=== PATIENT | female | born 1970 | race Caucasian/White ===

== ENCOUNTER 2017-01-26 20:59 | Observation (INO) | payer OTHER ==
[2017-01-26] MEDS ORDERED: SODIUM CHLORIDE 0.9% 500 ML IV STA (21:08)
[2017-01-26 21:49] LABS: Basophils % (A) 1 %; CH 29.8; CHCM 32.8; Eosinophils # (A) 0.1 k/uL (0-0.7); Eosinophils % (A) 2 %; HCT 47.8 % (34.0-46.0); HDW 2.58; HGB 16.1 gm/dL (11.4-16.0); Luc # (Auto) 0.15; Luc % (Auto) 3; Lymphocytes # (A) 2.2 k/uL (1.0-4.8); Lymphocytes % (A) 36 %; MCH 30.8 pg (25.0-35.0); MCHC 33.7 g/dL (31.0-37.0); MCV 91.5 fL (80.0-100.0); Mean Platelet Volume 8.8; Monocytes # (A) 0.4 k/uL (0-1.0); Monocytes % (A) 7 %; Neutrophils # (A) 3.2 k/uL (1.3-7.7); Neutrophils % (A) 53 %; RBC 5.22 m/uL (3.80-5.40); WBC (Perox) 6.06
[2017-01-26 21:53] LABS: ALT 35 U/L (9-52); AST 23 U/L (14-36); Acetaminophen <10.0 ug/mL; Alcohol <10 mg/dL; Alkaline Phosphatase 72 U/L (38-126); Anion Gap 12 mmol/L; Blood Urea Nitrogen 18 mg/dL (7-17); Calcium 9.2 mg/dL (8.4-10.2); Carbon Dioxide 18 mmol/L (22-30); Chloride 109 mmol/L (98-107); Glucose 79 mg/dL (74-99); Non-African American GFR(MDRD) >60 (>60 ml/min/1.73 sqM); Potassium 4.2 mmol/L (3.5-5.1); Salicylate <1.0 mg/dL; Sodium 139 mmol/L (137-145); Total Bilirubin 0.6 mg/dL (0.2-1.3); Total Protein 7.1 g/dL (6.3-8.2)
--- NOTE | 2017-01-26 22:00 | CT ---
EXAMINATION TYPE: CT brain wo con DATE OF EXAM: 01/26/2017 COMPARISON: NONE HISTORY: Seizure today, history of seizures. CT DLP: 1115.[address] of the brain was performed. The ventricles, basal cisterns and sulci overlying the cerebral convexities demonstrate mild enlargem ent. Periventricular decreased attenuation. There is no evidence for intracranial hemorrhage or sulcal effacement. No mass effects are seen.No midline shift. Osseous calvarium is intact. If symptoms persist consider MRI. IMPRESSION: 1. Advanced atrophic changes for the patient's age group. No acute intracranial process is appreciate d.
[2017-01-26] MEDS ORDERED: levETIRAcetam IV 1,000 MG in SALINE 1 100ML.BAG IVPB STA (22:15)
[2017-01-26 22:16] LABS: Appearance,Urine Clear (Clear); Bilirubin,Urine Negative (Negative); Glucose,Urine (UA) Negative (Negative); Ketones,Urine 1+ (Negative); Leukocyte Esterase,Urine Negative (Negative); Nitrite,Urine Negative (Negative); PH, Urine 5.5 (5.0-8.0); Protein,Urine Negative (Negative); Specific Gravity,Urine 1.009 (1.001-1.035); UA Billing (MACRO vs. MICRO) CHEM; Urobilinogen,Urine <2.0 mg/dL (<2.0)
--- NOTE | 2017-01-26 22:28 | ED ---
General Adult HPI - General Chief complaint: Seizure Stated complaint: Seizure Time Seen by Provider: 01/26/17 21:00 Source: patient, EMS, RN notes reviewed Mode of arrival: EMS Limitations: no limitations - History of Present Illness Initial comments: 46-year-old female presents for evaluation status post seizure. Patient is very somnolent and difficult to obtain a detailed history. According to EMS there was an approximately five-minute tonic-clonic seizure. In the home with the patient was residing, there was smoke from an "meal in the oven. This was minimal amount of smoke, however given this finding it is unknown how long the patient was unresponsive. Patient does appear to be postictal on my initial evaluation. Her neurologic examination is nonfocal. She is able to answer simple questions. She denies headache. Denies chest pain or shortness of breath. States she has not been on any seizure medication for some time secondary to "cholesterol problems". He does admit to taking Neurontin and Cymbalta today. She denies alcohol or benzodiazepine ingestion. Patient's only other known medical problem is chronic pain. - Related Data Allergies Allergy/AdvReac Type Severity Reaction Status Date / Time Penicillins Allergy Mild Unknown Verified 01/26/17 21:11 Review of Systems ROS Statement: Those systems with pertinent positive or pertinent negative responses have been documented in the HPI. ROS Other: All systems not noted in ROS Statement are negative. Past Medical History Past Medical History: COPD, Seizure Disorder History of Any Multi-Drug Resistant Organisms: MRSA Past Surgical History: Hysterectomy, Tubal Ligation Past Psychological History: No Psychological Hx Reported Smoking Status: Current every day smoker Past Alcohol Use History: Occasional Past Drug Use History: None Reported General Exam Limitations: no limitations General appearance: in no apparent distress, lethargic Head exam: Present: atraumatic, normocephalic Eye exam: Present: normal appearance, PERRL. Absent: scleral icterus, conjunctival injection ENT exam: Present: mucous membranes dry Neck exam: Absent: tenderness, meningismus Respiratory exam: Present: normal lung sounds bilaterally. Absent: respiratory distress, wheezes Cardiovascular Exam: Present: regular rate, normal rhythm GI/Abdominal exam: Present: soft. Absent: distended, tenderness Extremities exam: Present: normal inspection, normal capillary refill. Absent: pedal edema Neurological exam: Present: altered. Absent: motor sensory deficit Psychiatric exam: Present: flat affect Skin exam: Present: warm, dry, intact. Absent: cyanosis, diaphoretic Course Vital Signs 01/26/17 01/26/17 01/26/17 21:02 21:37 22:42 Temperature 98.2 F Pulse Rate 77 61 59 L Respiratory 18 18 16 Rate Blood Pressure 149/89 138/72 123/68 O2 Sat by Pulse 96 99 100 Oximetry - Reevaluation(s) Reevaluation #1: 01/26/17 22:27 I did attempt to contact the patient's daughter, called 3 different phone numbers, none of which were successful. EKG Findings - EKG Comments: EKG Findings:: EKG shows normal sinus rhythm, ventricular rate is 69, CO interval 140, QRS duration 86, QTC is 458. Medical Decision Making - Medical Decision Making 46-year-old female presenting by EMS with generalized seizure-like activity. This lasted approximately 5 minutes all of the exact time course is unknown. On initial evaluation patient does seem somewhat somnolent, syncope postictal period while emergency department patient is placed on seizure cautions, head CT is obtained which does show advanced age-related changes, no hemorrhage, no acute process. Laboratory studies including CBC, CMP are unremarkable, urinalysis shows no signs of infection, urine drug screen is positive for tricyclic, and benzodiazepines. Patient does not report taking any benzodiazepines. Her persistent postictal state and may be related to benzodiazepine ingestion or overdose. Patient is given a gram of Keppra to prevent recurrent seizure. She will be admitted for seizure with prolonged postictal period vs. benzodiazepine ingestion. Venous blood gas is obtained, negative for carbon dioxide retention. Tylenol and aspirin levels are nondetectable, alcohol is less than 10. EKG shows no arrhythmia. Diagnosis: Recurrent seizure, prolonged postictal period, polysubstance overdose - Lab Data Result diagrams: 01/26/17 21:27 01/26/17 21:27 Lab Results 01/26/17 01/26/17 01/26/17 Range/Units 21:27 21:27 22:05 WBC 6.0 (3.8-10.6) k/uL RBC 5.22 (3.80-5.40) m/uL Hgb 16.1 H (11.4-16.0) gm/dL Hct 47.8 H (34.0-46.0) % MCV 91.5 (80.0-100.0) fL MCH 30.8 (25.0-35.0) pg MCHC 33.7 (31.0-37.0) g/dL RDW 14.0 (11.5-15.5) % Plt Count 203 (150-450) k/uL Neutrophils % 53 % Lymphocytes % 36 % Monocytes % 7 % Eosinophils % 2 % Basophils % 1 % Neutrophils # 3.2 (1.3-7.7) k/uL Lymphocytes # 2.2 (1.0-4.8) k/uL Monocytes # 0.4 (0-1.0) k/uL Eosinophils # 0.1 (0-0.7) k/uL Basophils # 0.0 (0-0.2) k/uL VBG pH (7.31-7.41) VBG pCO2 (37-51) mmHg VBG HCO3 (24-28) mmol/L Carbon Monoxide, Quant (<10.0) % Sodium 139 (137-145) mmol/L Potassium 4.2 (3.5-5.1) mmol/L Chloride 109 H (98-107) mmol/L Carbon Dioxide 18 L (22-30) mmol/L Anion Gap 12 mmol/L BUN 18 H (7-17) mg/dL Creatinine 0.90 (0.52-1.04) mg/dL Est GFR (MDRD) Af Amer >60 (>60 ml/min/1.73 sqM) Est GFR (MDRD) Non-Af >60 (>60 ml/min/1.73 sqM) Glucose 79 (74-99) mg/dL Calcium 9.2 (8.4-10.2) mg/dL Total Bilirubin 0.6 (0.2-1.3) mg/dL AST 23 (14-36) U/L ALT 35 (9-52) U/L Alkaline Phosphatase 72 (38-126) U/L Total Protein 7.1 (6.3-8.2) g/dL Albumin 4.4 (3.5-5.0) g/dL Urine Color Yellow Urine Appearance Clear (Clear) Urine pH 5.5 (5.0-8.0) Ur Specific Sheridan 1.009 (1.001-1.035) Urine Protein Negative (Negative) Urine Glucose (UA) Negative (Negative) Urine Ketones 1+ H (Negative) Urine Blood Negative (Negative) Urine Nitrite Negative (Negative) Urine Bilirubin Negative (Negative) Urine Urobilinogen <2.0 (<2.0) mg/dL Ur Leukocyte Esterase Negative (Negative) Salicylates <1.0 mg/dL Urine Opiates Screen Not Detected (NotDetected) Ur Oxycodone Screen Not Detected (NotDetected) Urine Methadone Screen Not Detected (NotDetected) Ur Propoxyphene Screen Not Detected (NotDetected) Acetaminophen <10.0 ug/mL Ur Barbiturates Screen Not Detected (NotDetected) Phenytoin <3.0 ug/mL U Tricyclic Antidepress Detected H (NotDetected) Ur Phencyclidine Scrn Not Detected (NotDetected) Ur Amphetamines Screen Not Detected (NotDetected) U Methamphetamines Scrn Not Detected (NotDetected) U Benzodiazepines Scrn Detected H (NotDetected) Urine Cocaine Screen Not Detected (NotDetected) U Marijuana (THC) Screen Detected H (NotDetected) Serum Alcohol <10 mg/dL 01/26/17 Range/Units 22:55 WBC (3.8-10.6) k/uL RBC (3.80-5.40) m/uL Hgb (11.4-16.0) gm/dL Hct (34.0-46.0) % MCV (80.0-100.0) fL MCH (25.0-35.0) pg MCHC (31.0-37.0) g/dL RDW (11.5-15.5) % Plt Count (150-450) k/uL Neutrophils % % Lymphocytes % % Monocytes % % Eosinophils % % Basophils % % Neutrophils # (1.3-7.7) k/uL Lymphocytes # (1.0-4.8) k/uL Monocytes # (0-1.0) k/uL Eosinophils # (0-0.7) k/uL Basophils # (0-0.2) k/uL VBG pH 7.41 (7.31-7.41) VBG pCO2 32 L (37-51) mmHg VBG HCO3 20 L (24-28) mmol/L Carbon Monoxide, Quant 5.0 (<10.0) % Sodium (137-145) mmol/L Potassium (3.5-5.1) mmol/L Chloride (98-107) mmol/L Carbon Dioxide (22-30) mmol/L Anion Gap mmol/L BUN (7-17) mg/dL Creatinine (0.52-1.04) mg/dL Est GFR (MDRD) Af Amer (>60 ml/min/1.73 sqM) Est GFR (MDRD) Non-Af (>60 ml/min/1.73 sqM) Glucose (74-99) mg/dL Calcium (8.4-10.2) mg/dL Total Bilirubin (0.2-1.3) mg/dL AST (14-36) U/L ALT (9-52) U/L Alkaline Phosphatase (38-126) U/L Total Protein (6.3-8.2) g/dL Albumin (3.5-5.0) g/dL Urine Color Urine Appearance (Clear) Urine pH (5.0-8.0) Ur Specific Sheridan (1.001-1.035) Urine Protein (Negative) Urine Glucose (UA) (Negative) Urine Ketones (Negative) Urine Blood (Negative) Urine Nitrite (Negative) Urine Bilirubin (Negative) Urine Urobilinogen (<2.0) mg/dL Ur Leukocyte Esterase (Negative) Salicylates mg/dL Urine Opiates Screen (NotDetected) Ur Oxycodone Screen (NotDetected) Urine Methadone Screen (NotDetected) Ur Propoxyphene Screen (NotDetected) Acetaminophen ug/mL Ur Barbiturates Screen (NotDetected) Phenytoin ug/mL U Tricyclic Antidepress (NotDetected) Ur Phencyclidine Scrn (NotDetected) Ur Amphetamines Screen (NotDetected) U Methamphetamines Scrn (NotDetected) U Benzodiazepines Scrn (NotDetected) Urine Cocaine Screen (NotDetected) U Marijuana (THC) Screen (NotDetected) Serum Alcohol mg/dL Critical Care Time Critical Care Time: Yes Total Critical Care Time: 35 Disposition Clinical Impression: Generalized seizure Disposition: ADMITTED IP TO THIS [facility] Condition: Stable Referrals: Rickey Desai MD [Primary Care Provider] - 1-2 days Decision to Admit Reason: Admit from EC Decision Date: 01/26/17 Decision Time: 23:26
[2017-01-26] MEDS: SODIUM CHLORIDE 0.9% 1,000 ML IV SCH (22:42)
[2017-01-26 23:03] LABS: VBG PH 7.41 (7.31-7.41)
[2017-01-26] MEDS ORDERED: NALOXONE 0.4 MG/ML 1 ML VIAL IV PRN (23:19)
[2017-01-26] MEDS ORDERED: ACETAMINOPHEN TAB 325 MG TAB PO PRN (23:19)
[2017-01-26] MEDS ORDERED: ONDANSETRON 4 MG/2 ML VIAL IVP PRN (23:19)
[2017-01-27 08:59] LABS: Basophils % (A) 1 %; CH 29.8; CHCM 33.6; Eosinophils # (A) 0.1 k/uL (0-0.7); Eosinophils % (A) 2 %; HCT 44.8 % (34.0-46.0); HDW 2.63; HGB 15.2 gm/dL (11.4-16.0); Luc # (Auto) 0.11; Luc % (Auto) 2; Lymphocytes # (A) 1.8 k/uL (1.0-4.8); Lymphocytes % (A) 34 %; MCH 30.3 pg (25.0-35.0); MCHC 33.9 g/dL (31.0-37.0); MCV 89.3 fL (80.0-100.0); Mean Platelet Volume 8.8; Monocytes # (A) 0.2 k/uL (0-1.0); Monocytes % (A) 3 %; Neutrophils # (A) 3.2 k/uL (1.3-7.7); Neutrophils % (A) 59 %; RBC 5.02 m/uL (3.80-5.40); RDW 13.9 % (11.5-15.5); WBC 5.4 k/uL (3.8-10.6)
[2017-01-27 09:18] LABS: ALT 32 U/L (9-52); AST 18 U/L (14-36); Alkaline Phosphatase 61 U/L (38-126); Anion Gap 10 mmol/L; Blood Urea Nitrogen 14 mg/dL (7-17); Calcium 8.9 mg/dL (8.4-10.2); Carbon Dioxide 20 mmol/L (22-30); Chloride 109 mmol/L (98-107); Glucose 151 mg/dL (74-99); Magnesium 1.6 mg/dL (1.6-2.3); Non-African American GFR(MDRD) >60 (>60 ml/min/1.73 sqM); Potassium 3.9 mmol/L (3.5-5.1); Sodium 139 mmol/L (137-145); Total Bilirubin 0.5 mg/dL (0.2-1.3); Total Protein 6.3 g/dL (6.3-8.2)
[2017-01-27] MEDS ORDERED: HYDROcodone/APAP 5-325MG 1 EACH TAB PO PRN (14:18)
[2017-01-27] MEDS ORDERED: ALPRAZolam 0.25 MG TAB PO PRN (14:18)
[2017-01-27] MEDS ORDERED: TEMAZEPAM 15 MG CAP PO PRN (14:18)
[2017-01-27] MEDS ORDERED: levETIRAcetam IV 750 MG in SODIUM CHLORIDE 0.9% 100 ML IVPB SCH (15:00)
[2017-01-27] MEDS: NICOTINE 14MG/24HR PATCH TRANSDERM SCH (15:45)
[2017-01-27] MEDS: DULoxetine HCL 30 MG CAPSULE.DR PO SCH (15:46)
[2017-01-27] MEDS: PANTOPRAZOLE 40 MG TABLET PO SCH (15:46)
[2017-01-27] MEDS: LEVOTHYROXINE 75 MCG TAB PO SCH (15:47)
[2017-01-27] MEDS: HEPARIN SODIUM,PORCINE 5,000 UNIT/ML 1 ML VIAL SQ SCH ×2 (15:47→21:44)
[2017-01-27] MEDS: traZODone HCL 50 MG TAB PO SCH ×2 (15:57→22:09)
[2017-01-27] MEDS: PREGABALIN 100 MG CAP PO PRN ×2 (16:12→21:44)
[2017-01-27] MEDS: BUTALB/APAP/CAFF 50-325-40MG TAB PO PRN (17:42)
[2017-01-27] MEDS: SODIUM CHLORIDE 0.9% 1,000 ML IV SCH (19:56)
--- NOTE | 2017-01-27 20:14 | HP ---
HISTORY AND PHYSICAL DATE OF SERVICE: 01/27/2017 This is a progress note. CHIEF COMPLAINT: Seizure disorder. HISTORY: This 46-year-old woman with a past medical history of seizure disorder for several years, history of COPD, history of smoker, history of MRSA, being followed by Dr. Fox in the outpatient setting apparently was cooking food for her ex-boyfriend. The patient apparently had 5 minute tonic-clonic seizures. The patient was subsequent unresponsive and the exact duration of the episodes not known at this time. The patient taken to [facility] and admitted to the hospital for further evaluation and treatment. There is no history of fever, rigors or chills, chest pain, palpation, hematochezia or melena at this time. The patient being followed by in [place]. PAST MEDICAL HISTORY: Past medical history of COPD, seizure disorder, history of nicotine dependence, history of MRSA. MEDS: Medications prior to admission include: 1. Trazodone 50 mg p.o. t.i.d. 2. Zocor 40 mg q.h.s. 3. Lyrica 200 mg b.i.d. 4. Synthroid 150 mcg p.o. daily. 5. Cymbalta 30 mg p.o. daily. 6. Fioricet 1 capsule p.o. q.8h p.r.n. 7. Elavil 25 mg p.o. daily. ALLERGIES: PENICILLIN. FAMILY HISTORY: Unknown. SOCIAL HISTORY: History of smoking, history of alcohol. THC was positive in the drug screen. REVIEW OF SYMPTOMS: Review of systems: ENT no diminished vision. No diminished hearing. Cardiovascular: No angina or palpitations. Respiratory: No cough. No hemoptysis. GI: No nausea or vomiting. : No dysuria or retention. Central nervous system: No numbness, weakness. Allergy/Immunology: No asthma or hayfever. Musculoskeletal: As mentioned earlier. Hematology/Oncology: No history of anemia. Endocrine: No history of diabetes, hypothyroidism. Constitutional: As mentioned earlier. Dermatology: Negative. Rheumatology: Negative. Psychiatric: As mentioned earlier. PHYSICAL EXAMINATION: Alert and oriented times three. Pulse 71, blood pressure 140/77, respiration 18 , temperature 97.8, pulse ox 97% on 2 L nasal cannula. HEENT: Conjunctivae normal. Oral mucosa moist. Neck is no jugular venous distention. No carotid bruit. No lymph node enlargement. No thyroid enlargement. Cardiovascular S1, S2 muffled. No S3, no S4. Respiratory: Breath sounds diminished in sounds in the bases. A few scattered rhonchi. No crackles. Abdomen is soft, nontender. No mass palpable. Legs: No edema. No swelling. Central nervous system: Higher functions as mentioned. Moves all four limbs. No focal motor or sensory deficits. lymphatics: No lymph nodes palpable in the neck, axillae or groin. Skin: No ulcer, rash or bleeding. LABS: CBC within normal limits. Sodium 139, potassium 3.9. Random glucose is 151. Drug screen is positive for THC. ASSESSMENT: 1. Generalized tonic clonic seizure disorder and breakthrough seizures. 2. History of nicotine dependence. 3. THC positive. 4. History of chronic obstructive pulmonary disease. 5. History of Methicillin-resistant Staphylococcus aureus. 6. History of hysterectomy. 7. FULL CODE. 8. FULL CODE. 9. RECOMMENDATIONS AND DISCUSSION: In this 46-year-old woman who presents with multiple complex medical issues. We will monitor the patient closely. Continue the current medications. Continue symptomatic treatment. Otherwise, the patient was started on Keppra. Otherwise we will initiate withdrawal. Symptomatic treatment. Xanax. Repeat labs for tomorrow. I would recommend close followup with the primary physician. Further recommendations to follow. See orders for further details. The salicylate, acetaminophen, phenytoin and serum alcohol levels were normal. Resume the home medications as well. Discussed with the patient, understands and agrees. MMODL / IJN: [id number] / MADHURI
[2017-01-27] MEDS ORDERED: ATORVASTATIN 20 MG TAB PO SCH (21:00)
[2017-01-27] MEDS ORDERED: AMITRIPTYLINE HCL 25 MG TAB PO SCH (21:00)
--- NOTE | 2017-01-27 23:12 | MR ---
EXAMINATION TYPE: MR brain wo/w con DATE OF EXAM: 01/27/2017 COMPARISON: Prior MRI brain July 20, 2010. Recent CT brain from yesterday. HISTORY: Seizures, history of multiple sclerosis. TECHNIQUE: Multiplanar, multisequence images of the brain and brainstem is performed without and with IV contras t, utilizing 7.5 mL intravenous Gadavist gadolinium contrast is administered intravenously. Demyelin ating disease protocol with additional Sagittal Flair sequence performed. FINDINGS: T2 Lesions Present : Yes Approximate Number of Lesions: Difficult to accurately measure due to confluent appearance centered p eriventricular level bilaterally. Locations Identified : Predominantly deep and periventricular confluent lesions Size of Reference Lesion(s): 1. 1.6 cm x 0.7 cm x 1.5 cm on axial image 24 and sagittal image 24 posterior right frontal perivent ricular elongated confluent lesion. Enhancing Lesion(s) Present: No Change from Prior: Increase in number from 2010. Diffusion weighted images demonstrate no evidence of a recent infarct or other diffusion abnormality. There is no worrisome extra-axial fluid collection. There is ventricular and sulcal prominence cons istent with and mild to moderate diffuse cerebral atrophy somewhat pronounced for patient's age redem onstrated. Midline structures demonstrate normal morphology. The craniocervical junction appears within normal limits. Post contrast images demonstrate no convincing evidence of abnormal enhancing lesions thoug h exam is suboptimal due to fast protocol related to patient motion.. The dural venous sinuses appear patent. The visualized sinuses are clear and the globes are intact. IMPRESSION: Mild to moderate diffuse cerebral atrophy not significantly changed from 2010 but pronoun bisi for patient's chronologic age. Moderate to severe deep and periventricular white matter changes w ith progression from 2011 study, nonspecific finding most likely on basis of patient's known multiple sclerosis.
[2017-01-28] MEDS: BUTALB/APAP/CAFF 50-325-40MG TAB PO PRN ×2 (02:32→13:10)
[2017-01-28] MEDS: SODIUM CHLORIDE 0.9% 1,000 ML IV SCH (02:46)
[2017-01-28] MEDS: LEVOTHYROXINE 75 MCG TAB PO SCH (06:10)
[2017-01-28] MEDS: PANTOPRAZOLE 40 MG TABLET PO SCH (08:08)
[2017-01-28] MEDS: DULoxetine HCL 30 MG CAPSULE.DR PO SCH (08:08)
[2017-01-28] MEDS: HEPARIN SODIUM,PORCINE 5,000 UNIT/ML 1 ML VIAL SQ SCH (08:09)
[2017-01-28] MEDS: NICOTINE 14MG/24HR PATCH TRANSDERM SCH (08:11)
[2017-01-28] MEDS: traZODone HCL 50 MG TAB PO SCH ×2 (08:11→17:24)
[2017-01-28] MEDS: PREGABALIN 100 MG CAP PO PRN (08:13)
[2017-01-28 08:17] LABS: Basophils % (A) 1 %; CH 31.2; CHCM 34.3; Eosinophils # (A) 0.1 k/uL (0-0.7); Eosinophils % (A) 3 %; HCT 48.8 % (34.0-46.0); HDW 2.66; Luc # (Auto) 0.12; Luc % (Auto) 2; Lymphocytes # (A) 2.4 k/uL (1.0-4.8); Lymphocytes % (A) 49 %; MCHC 32.8 g/dL (31.0-37.0); MCV 91.3 fL (80.0-100.0); Mean Platelet Volume 9.8; Monocytes # (A) 0.3 k/uL (0-1.0); Monocytes % (A) 5 %; Neutrophils % (A) 40 %; RBC 5.35 m/uL (3.80-5.40); RDW 14.8 % (11.5-15.5); WBC 4.9 k/uL (3.8-10.6); WBC (Perox) 5.05
[2017-01-28 08:31] LABS: Anion Gap 9 mmol/L; Blood Urea Nitrogen 15 mg/dL (7-17); Calcium 9.1 mg/dL (8.4-10.2); Carbon Dioxide 21 mmol/L (22-30); Chloride 110 mmol/L (98-107); Glucose 81 mg/dL (74-99); Non-African American GFR(MDRD) >60 (>60 ml/min/1.73 sqM); Potassium 4.3 mmol/L (3.5-5.1); Sodium 140 mmol/L (137-145)
--- NOTE | 2017-01-28 08:39 | CONS ---
CONSULTATION DATE OF CONSULTATION: 01/27/2017 CHIEF COMPLAINT: Seizure. HISTORY OF PRESENT ILLNESS: Mrs. Holly is a 46-year-old, female, who was being evaluated by the neurology service per the request of Dr. Bateman for seizures. The patient was brought into [facility] Emergency Room after she was found to be unresponsive at home. In the emergency room, she was quite drowsy. The patient does not recall what happened. She reports a history of seizures for several years and had been on seizure medications in the past including Dilantin and Keppra. She has not been following up with any neurologist and has not been taking any seizure medications. Her CBC and comprehensive metabolic profile were normal except for mild hyperglycemia at 151. Her urinalysis was normal. Her urine drug screen was positive for tricyclic antidepressants, benzodiazepine, and marijuana. In reviewing her home medications, she is not prescribed any benzodiazepine. The patient admits to me that she has been having increased stress at home and did take Klonopin from a friend's house. According to the chart, EMS did report witnessing a generalized tonic clonic seizure lasting approximately 5 minutes. The patient is currently on seizure precautions and she has been started on Keppra. She also reports a history of multiple sclerosis, which was diagnosed several years ago. She is not on any medications for this. PAST MEDICAL HISTORY: Chronic obstructive pulmonary disease, fibromyalgia, seizure disorder, multiple sclerosis. She also has history of depression. PAST SURGICAL HISTORY: Hysterectomy and tubal ligation. SOCIAL HISTORY: She is a current every day smoker. She occasionally drinks alcohol. She denies any IV drug use. FAMILY HISTORY: Noncontributory. HOME MEDICATIONS: Reviewed in the chart. ALLERGIES: PENICILLIN. REVIEW OF SYSTEMS: CONSTITUTIONAL: Negative. EYES: Negative. ENT: Negative. CARDIOVASCULAR: Negative. RESPIRATORY: Positive for occasional shortness of breath. NEUROLOGICAL: As mentioned above. She denies any lateralizing numbness or weakness. GASTROINTESTINAL: Negative. GENITOURINARY: Negative. MUSCULOSKELETAL: Positive for occasional joint pains. ENDOCRINE: Negative. DERMATOLOGICAL: Negative. PSYCHIATRIC: Positive for history of depression. PHYSICAL EXAM: Vital signs show a temperature of 98.4, pulse 73, respirations 16, blood pressure 128/80. GENERAL APPEARANCE: The patient is a well-developed female who appears to be in no acute distress. HEENT: Normocephalic, atraumatic, no facial asymmetry is seen. Extraocular muscles are intact. NECK: Supple with no masses felt. CARDIOVASCULAR: Regular rate and rhythm. ABDOMEN: Nontender nondistended. Extremities showed no edema or clubbing. NEUROLOGICAL EXAM: The patient is alert, aware and oriented x3. Speech and language are normal. Strength is full in all 4 extremities. Sensory exam was normal to light touch in all 4 extremities. No tremors or seizure-like activity is seen. No facial asymmetry is seen on cranial nerve testing. IMPRESSION: 1. Seizure disorder, generalized tonic-clonic type. 2. Altered mental status, resolved. 3. History of multiple sclerosis. RECOMMENDATION: The patient did have a witnessed generalized tonic-clonic seizure by EMS. As mentioned above, she does report a long-standing history of seizures, but she is not on any seizure medications due to loss of follow up with her previous neurologist. I will keep her on Keppra 750 mg b.i.d. An EEG has been ordered. I will order an MRI of the brain with and without contrast. Continue seizure precautions. Continue neuro checks. As for her history of multiple sclerosis, I had a lengthy discussion with her regarding treatment options. This will be addressed further in outpatient setting. Thank you for allowing me to participate in the care of your patient. If you have any questions, please feel free to contact me. JOHN / FRANKO: [id number] /
[2017-01-28 16:02] VITALS: BP 94/54; PULSE 59; RESP 16; TEMP 98.2
--- NOTE | 2017-01-28 19:59 | P.DS ---
Providers Date of admission: 01/26/17 23:19 Attending physician: Letitia Bateman Consults: 01/26/17 23:20 Consult Physician Urgent Consulting Provider: Sandra Dumont Consult Reason/Comments: Seizure with prolonged postictal Do you want consulting provider notified?: Yes, Notify in am Primary care physician: [facility] Course: This 46-year-old woman with a past medical history multiple medical problems was admitted with a generalized tonic-clonic seizures and breakthrough seizures. Patient was monitored closely. Keppra was initiated. Neurology saw the patient. MRI did not show any acute abnormality in the brain. Neurology recommended follow recommended outpatient follow-up. The patient will be discharged in a stable condition with guarded prognosis. No driving for 6 months per [place] regulations. On exam vitals stable. Cardio S1 and S2 normal. Respirator system clear to auscultation. Abdomen soft nontender. No system no focal deficit. Final diagnosis 1. Generalized tonic-clonic seizure disorder with breakthrough seizures. 2. History and nicotine dependence. 3. THC positive. 4. History of COPD. 5. History of MRSA. 6. History hysterectomy. 7. Full code Patient Condition at Discharge: Stable Plan - Discharge Summary New Discharge Prescriptions: New levETIRAcetam [Keppra] 750 mg PO Q12HR #60 tab Nicotine 14Mg/24Hr Patch [Habitrol] 1 patch TRANSDERM DAILY #30 patch Pantoprazole [Protonix] 40 mg PO AC-BRKFST #30 tab Continue Simvastatin [Zocor] 40 mg PO HS Pregabalin [Lyrica] 200 mg PO BID PRN PRN Reason: FIBROMYALGIA Levothyroxine Sodium [Synthroid] 150 mcg PO DAILY DULoxetine HCL [Cymbalta] 30 mg PO DAILY Fioricet 50-300-40 1 cap PO Q8H PRN PRN Reason: Headache Amitriptyline HCl [Elavil] 25 mg PO BID traZODone HCL 50 mg PO TID Discharge Medication List Amitriptyline HCl [Elavil] 25 mg PO BID 01/27/17 [History] DULoxetine HCL [Cymbalta] 30 mg PO DAILY 01/27/17 [History] Fioricet 50-300-40 1 cap PO Q8H PRN 01/27/17 [History] Levothyroxine Sodium [Synthroid] 150 mcg PO DAILY 01/27/17 [History] Pregabalin [Lyrica] 200 mg PO BID PRN 01/27/17 [History] Simvastatin [Zocor] 40 mg PO HS 01/27/17 [History] traZODone HCL 50 mg PO TID 01/27/17 [History] Nicotine 14Mg/24Hr Patch [Habitrol] 1 patch TRANSDERM DAILY #30 patch 01/28/17 [ Rx] Pantoprazole [Protonix] 40 mg PO AC-BRKFST #30 tab 01/28/17 [Rx] levETIRAcetam [Keppra] 750 mg PO Q12HR #60 tab 01/28/17 [Rx] Follow up Appointment(s)/Referral(s): Sandra Dumont MD [STAFF PHYSICIAN] - 2 Weeks (Office will call patient to set up appointment.) Rickey Desai MD [Primary Care Provider] - 02/02/17 1:00 pm Ambulatory/Diagnostic Orders: Complete Blood Count w/diff [LAB.AMB] Time Frame: 3 Days, Location: Determined By Patient Patient Instructions/Handouts: Nicotine (Absorbed through the skin), Pantoprazole (By mouth), Levetiracetam (By mouth) Activity/Diet/Wound Care/Special Instructions: Pending final DC recommendations and clearance from neurology. Diet: Cardiac Activity: Limited until follow up Discharge Disposition: HOME SELF-CARE
--- NOTE | 2017-01-31 20:37 | EEG ---
ELECTROENCEPHALOGRAM REPORT DATE OF SERVICE: 01/28/2017 REASON FOR TESTING: Seizure. CURRENT ANTI-EPILEPTIC MEDICATIONS: Keppra. DESCRIPTION OF THE PROCEDURE: This EEG was performed using a 21-channel digital electroencephalograph, following international 10-20 system. DESCRIPTION OF THE RECORDING: From the beginning of the tracing, and with the patient's eyes closed, the background rhythm was mostly consisting of 8 to 9 Hertz alpha frequency in the posterior occipital leads. No obvious asymmetry is seen. Photic stimulation was performed with a minimal driving response seen. No pathological waves were elicited. Hyperventilation was performed with a minimal buildup of amplitude seen. Again, no pathological waves were elicited. Frequent movement and muscle artifacts are seen. The patient remains awake throughout the tracing. No obvious epileptiform discharges were seen. Her EKG lead showed a regular rate and rhythm. INTERPRETATION: This awake EEG can be considered within normal limits. There was no asymmetry seen. No epileptiform discharges were noticed. The absence of epileptiform discharges does not rule out the diagnosis of epilepsy; therefore clinical correlation is recommended. MMKENJI / FRANKO: [id number] /
== END 2017-01-28 18:45 | disposition home or self-care (01) ==
LOC: EC 20:59 → 5MS5E 23:19
PROVIDERS: ADMIT Hospitalist; ATTEND Hospitalist
DX: G40.409 Other generalized epilepsy and epileptic syndromes, not intractable, without status epilepticus (principal); G89.29 Other chronic pain; J44.9 Chronic obstructive pulmonary disease, unspecified; Z86.14 Personal history of Methicillin resistant Staphylococcus aureus infection; F17.200 Nicotine dependence, unspecified, uncomplicated; R73.9 Hyperglycemia, unspecified; G35 Multiple sclerosis; M79.7 Fibromyalgia; F32.9 Major depressive disorder, single episode, unspecified; Z88.0 Allergy status to penicillin; Z79.899 Other long term (current) drug therapy
CPT/HCPCS: 96365; 96372 ×2; 96375; 99291; 36415; 94760; 95816; 93005; 80053 ×2; 80048; 82375; 80185; 82803; 83735; 85025 ×3; 81003; 80306; 83520 ×2; 80320; 70450; 70553; G0378 ×3; S4990 ×2; J1644 ×2; J2405; J1953 ×2; A9581

== ENCOUNTER 2017-12-26 22:01 | Inpatient (IN) | payer OTHER ==
[2017-12-26] MEDS: MIDAZOLAM 1 MG/ML 5 ML VIAL IV STA ×2 (22:15→22:27)
[2017-12-26] MEDS ORDERED: SUCCINYLCHOLINE CHLORIDE VIAL 200 MG/10 ML VIAL IV STA (22:39)
[2017-12-26] MEDS: EMPTY BAG 1 BAG with PROPOFOL 1,000 MG IV SCH (22:50)
[2017-12-26] MEDS ORDERED: EMPTY BAG 1 BAG with PROPOFOL 1,000 MG IV SCH (23:00)
[2017-12-26] MEDS ORDERED: IPRATROPIUM-ALBUTEROL 3 ML NEB INHALATION PRN (23:04)
[2017-12-26] MEDS ORDERED: SODIUM CHLORIDE 0.9% 1,000 ML IV STA (23:04)
--- NOTE | 2017-12-26 23:09 | ED ---
General Adult HPI - General Chief complaint: Shortness of Breath Stated complaint: SERGE Time Seen by Provider: 12/26/17 22:05 Source: patient, EMS, RN notes reviewed Mode of arrival: EMS Limitations: physical limitation - History of Present Illness Initial comments: Patient is a pleasant 47-year-old female presenting is a transfer from [facility] for difficulty in breathing. Patient was originally unresponsive and dyspnea by fire and did improve with oxygen. Patient was seen at [facility]. Patient was put on BiPAP and did improve. Patient was determined to be septic and given cefepime and vancomycin as well as the liters of fluid. Blood pressure did increase to 105/80 prior to transfer. Patient did have a elevated lactic acid at 4.5. Patient arrives on CPAP by EMS. Patient remains very dyspneic and in respiratory distress. Patient does have limited answers 1-2 words. Patient states she has been short of breath for the past couple days that has been progressing. Patient is updated regarding her severe respiratory status and advised to be intubated. Patient is receptive to this. Patient was intubated shortly after arrival. - Related Data Home Medications Medication Instructions Recorded Confirmed Amitriptyline HCl [Elavil] 25 mg PO BID 01/27/17 01/27/17 DULoxetine HCL [Cymbalta] 30 mg PO DAILY 01/27/17 01/27/17 Fioricet 50-300-40 1 cap PO Q8H PRN 01/27/17 01/27/17 Levothyroxine Sodium [Synthroid] 150 mcg PO DAILY 01/27/17 01/27/17 Pregabalin [Lyrica] 200 mg PO BID PRN 01/27/17 01/27/17 Simvastatin [Zocor] 40 mg PO HS 01/27/17 01/27/17 traZODone HCL 50 mg PO TID 01/27/17 01/27/17 Previous Rx's Medication Instructions Recorded Nicotine 14Mg/24Hr Patch [Habitrol] 1 patch TRANSDERM DAILY #30 patch 01/28/17 Pantoprazole [Protonix] 40 mg PO AC-BRKFST #30 tab 01/28/17 levETIRAcetam [Keppra] 750 mg PO Q12HR #60 tab 01/28/17 Allergies Allergy/AdvReac Type Severity Reaction Status Date / Time Penicillins Allergy Mild Unknown Verified 12/26/17 22:10 Review of Systems ROS Statement: Those systems with pertinent positive or pertinent negative responses have been documented in the HPI. ROS Other: All systems not noted in ROS Statement are negative. Constitutional: Denies: fever Eyes: Denies: eye pain ENT: Denies: ear pain Respiratory: Reports: cough, dyspnea Cardiovascular: Denies: chest pain Endocrine: Reports: fatigue Gastrointestinal: Denies: abdominal pain Genitourinary: Denies: dysuria Musculoskeletal: Denies: back pain Skin: Denies: rash Neurological: Denies: weakness Past Medical History Past Medical History: COPD, Seizure Disorder Additional Past Medical History / Comment(s): current smoker History of Any Multi-Drug Resistant Organisms: MRSA Date of last positivie culture/infection: unknown MDRO Source:: unknown Past Surgical History: Hysterectomy, Tubal Ligation Additional Past Surgical History / Comment(s): Thyroidectomy Past Anesthesia/Blood Transfusion Reactions: No Reported Reaction Past Psychological History: No Psychological Hx Reported Smoking Status: Current every day smoker Past Alcohol Use History: Occasional Past Drug Use History: None Reported - Past Family History Daughter(s) Family Medical History: No Reported History Mother History Unknown: Yes Additional Family Medical History / Comment(s): patient does not know mother's medical history General Exam Limitations: physical limitation General appearance: alert, in distress Head exam: Present: atraumatic Eye exam: Present: normal appearance, PERRL ENT exam: Present: normal oropharynx Respiratory exam: Present: respiratory distress, wheezes, rales, accessory muscle use Cardiovascular Exam: Present: tachycardia GI/Abdominal exam: Present: soft. Absent: tenderness Extremities exam: Present: normal inspection. Absent: pedal edema, calf tenderness Neurological exam: Present: alert Psychiatric exam: Present: normal affect, normal mood Skin exam: Present: normal color Course Vital Signs 12/26/17 12/26/17 12/26/17 22:08 22:10 23:03 Temperature 99.2 F Pulse Rate 117 H 99 100 Respiratory 40 H 40 H 21 Rate Blood Pressure 107/64 92/57 O2 Sat by Pulse 65 L 93 L Oximetry 12/26/17 12/26/17 12/26/17 23:28 23:32 23:38 Temperature 102.5 F H Pulse Rate 99 99 Respiratory 16 16 Rate Blood Pressure 115/54 94/55 O2 Sat by Pulse 92 L 96 Oximetry 12/27/17 00:06 Temperature Pulse Rate 98 Respiratory 20 Rate Blood Pressure 100/53 O2 Sat by Pulse 98 Oximetry - Reevaluation(s) Reevaluation #1: 12/26/17 23:[address] Britton, who will admit for hospital call. 12/27/17 00:18 Patient was again reevaluated. Computed tomography scan and Tylenol ordered. Case was also discussed in detail with Dr. Silva who will consult. He recommends continuing with cefepime and vancomycin. 12/27/17 00:20 Patient will be covered with heparin for elevated troponin pending cardiology evaluation. Procedures - Central Line Placement Right SC Consent Obtained: emergent situation Time Out Performed: Yes Patient Placed on Monitor/Pulse Ox: Yes MD Prep: mask, gown, gloves Central Line Prep: Chlorhexidine scrub Local Anesthesia Used: Lidocaine 1% Amount of Anesthesia Used (mls): 2 Central Line Lumen Inserted: triple Central Line Position: good blood return, all ports aspirated, flushed, capped, sutured in place with 3-0 nylon Dressing Applied: Tegaderm Post Procedure X-Ray: tip of catheter in good position Patient Tolerated Procedure: well, no complications Complications: none - Intubation Time Out Performed: Yes Sedative: Versed Paralytic: Succinylcholine Laryngoscope: Del Angel Size: 3 ET Tube Size: 7.5 Tube Secured Depth (cm): 21 Tube Placement Confirmation: visualized tube passing through cords, equal breath sounds bilaterally, no breath sounds over epigastrium, confirmation by capnometry Patient Tolerated Procedure: well, no complications - Sepsis Sepsis Focused Exam #1 Time Sepsis Criteria Met: 23:42 Sepsis Focused Exam Date: 12/26/17 Sepsis Focused Exam Time: 23:42 Sepsis Focused Exam Complete: Yes Vital Signs & RN Notes Reviewed: Yes Capillary Refill: < 2 Seconds: Fingers, Toes Peripheral Pulses: Normal: Radial (R), Radial (L) Skin Color: Normal for Patient Respiratory Exam: rales Cardiovascular Exam: tachycardia Medical Decision Making - Lab Data Result diagrams: 12/26/17 22:51 12/26/17 22:51 Lab Results 12/26/17 12/26/17 12/26/17 Range/Units 22:51 22:51 22:51 WBC 13.8 H (3.8-10.6) k/uL RBC 4.25 (3.80-5.40) m/uL Hgb 12.9 (11.4-16.0) gm/dL Hct 40.3 (34.0-46.0) % MCV 94.9 (80.0-100.0) fL MCH 30.5 (25.0-35.0) pg MCHC 32.1 (31.0-37.0) g/dL RDW 14.4 (11.5-15.5) % Plt Count 250 (150-450) k/uL Neutrophils % 89 % Lymphocytes % 9 % Monocytes % 1 % Eosinophils % 1 % Basophils % 0 % Neutrophils # 12.3 H (1.3-7.7) k/uL Lymphocytes # 1.2 (1.0-4.8) k/uL Monocytes # 0.2 (0-1.0) k/uL Eosinophils # 0.1 (0-0.7) k/uL Basophils # 0.0 (0-0.2) k/uL PT (9.0-12.0) sec INR (<1.2) APTT (22.0-30.0) sec Sample Site ABG pH (7.35-7.45) ABG pCO2 (35-45) mmHg ABG pO2 (83-108) mmHg ABG HCO3 (21-25) mmol/L ABG Total CO2 (19-24) mmol/L ABG O2 Saturation (94-97) % ABG Base Excess mmol/L Maco Test FiO2 % Sodium 142 (137-145) mmol/L Potassium 4.7 (3.5-5.1) mmol/L Chloride 120 H* (98-107) mmol/L Carbon Dioxide 17 L (22-30) mmol/L Anion Gap 5 mmol/L BUN 19 H (7-17) mg/dL Creatinine 0.80 (0.52-1.04) mg/dL Est GFR (CKD-EPI)AfAm >90 (>60 ml/min/1.73 sqM) Est GFR (CKD-EPI)NonAf 90 (>60 ml/min/1.73 sqM) Glucose 139 H (74-99) mg/dL Plasma Lactic Acid Kenn (0.7-2.0) mmol/L Calcium 6.7 L (8.4-10.2) mg/dL Magnesium 2.0 (1.6-2.3) mg/dL Total Bilirubin 0.3 (0.2-1.3) mg/dL AST 52 H (14-36) U/L ALT 26 (9-52) U/L Alkaline Phosphatase 105 (38-126) U/L Total Creatine Kinase 107 (30-135) U/L CK-MB (CK-2) (0.0-2.4) ng/mL CK-MB (CK-2) Rel Index 2.5 Troponin I 0.586 H* (0.000-0.034) ng/mL Total Protein 4.8 L (6.3-8.2) g/dL Albumin 2.6 L (3.5-5.0) g/dL Urine Color Urine Appearance (Clear) Urine pH (5.0-8.0) Ur Specific [place] (1.001-1.035) Urine Protein (Negative) Urine Glucose (UA) (Negative) Urine Ketones (Negative) Urine Blood (Negative) Urine Nitrite (Negative) Urine Bilirubin (Negative) Urine Urobilinogen (<2.0) mg/dL Ur Leukocyte Esterase (Negative) Urine RBC (0-5) /hpf Amorphous Sediment (None) /hpf Urine Bacteria (None) /hpf Granular Casts (0) /lpf 12/26/17 12/26/17 12/26/17 Range/Units 22:51 22:51 23:22 WBC (3.8-10.6) k/uL RBC (3.80-5.40) m/uL Hgb (11.4-16.0) gm/dL Hct (34.0-46.0) % MCV (80.0-100.0) fL MCH (25.0-35.0) pg MCHC (31.0-37.0) g/dL RDW (11.5-15.5) % Plt Count (150-450) k/uL Neutrophils % % Lymphocytes % % Monocytes % % Eosinophils % % Basophils % % Neutrophils # (1.3-7.7) k/uL Lymphocytes # (1.0-4.8) k/uL Monocytes # (0-1.0) k/uL Eosinophils # (0-0.7) k/uL Basophils # (0-0.2) k/uL PT 10.1 (9.0-12.0) sec INR 1.0 (<1.2) APTT 26.4 (22.0-30.0) sec Sample Site rrad ABG pH 7.21 L (7.35-7.45) ABG pCO2 41 (35-45) mmHg ABG pO2 83 (83-108) mmHg ABG HCO3 16 L (21-25) mmol/L ABG Total CO2 18 L (19-24) mmol/L ABG O2 Saturation 94.5 (94-97) % ABG Base Excess -11.6 mmol/L Maco Test Yes FiO2 100 % Sodium (137-145) mmol/L Potassium (3.5-5.1) mmol/L Chloride (98-107) mmol/L Carbon Dioxide (22-30) mmol/L Anion Gap mmol/L BUN (7-17) mg/dL Creatinine (0.52-1.04) mg/dL Est GFR (CKD-EPI)AfAm (>60 ml/min/1.73 sqM) Est GFR (CKD-EPI)NonAf (>60 ml/min/1.73 sqM) Glucose (74-99) mg/dL Plasma Lactic Acid Kenn 1.6 (0.7-2.0) mmol/L Calcium (8.4-10.2) mg/dL Magnesium (1.6-2.3) mg/dL Total Bilirubin (0.2-1.3) mg/dL AST (14-36) U/L ALT (9-52) U/L Alkaline Phosphatase (38-126) U/L Total Creatine Kinase (30-135) U/L CK-MB (CK-2) (0.0-2.4) ng/mL CK-MB (CK-2) Rel Index Troponin I (0.000-0.034) ng/mL Total Protein (6.3-8.2) g/dL Albumin (3.5-5.0) g/dL Urine Color Urine Appearance (Clear) Urine pH (5.0-8.0) Ur Specific [place] (1.001-1.035) Urine Protein (Negative) Urine Glucose (UA) (Negative) Urine Ketones (Negative) Urine Blood (Negative) Urine Nitrite (Negative) Urine Bilirubin (Negative) Urine Urobilinogen (<2.0) mg/dL Ur Leukocyte Esterase (Negative) Urine RBC (0-5) /hpf Amorphous Sediment (None) /hpf Urine Bacteria (None) /hpf Granular Casts (0) /lpf 12/26/17 Range/Units 23:27 WBC (3.8-10.6) k/uL RBC (3.80-5.40) m/uL Hgb (11.4-16.0) gm/dL Hct (34.0-46.0) % MCV (80.0-100.0) fL MCH (25.0-35.0) pg MCHC (31.0-37.0) g/dL RDW (11.5-15.5) % Plt Count (150-450) k/uL Neutrophils % % Lymphocytes % % Monocytes % % Eosinophils % % Basophils % % Neutrophils # (1.3-7.7) k/uL Lymphocytes # (1.0-4.8) k/uL Monocytes # (0-1.0) k/uL Eosinophils # (0-0.7) k/uL Basophils # (0-0.2) k/uL PT (9.0-12.0) sec INR (<1.2) APTT (22.0-30.0) sec Sample Site ABG pH (7.35-7.45) ABG pCO2 (35-45) mmHg ABG pO2 (83-108) mmHg ABG HCO3 (21-25) mmol/L ABG Total CO2 (19-24) mmol/L ABG O2 Saturation (94-97) % ABG Base Excess mmol/L Maco Test FiO2 % Sodium (137-145) mmol/L Potassium (3.5-5.1) mmol/L Chloride (98-107) mmol/L Carbon Dioxide (22-30) mmol/L Anion Gap mmol/L BUN (7-17) mg/dL Creatinine (0.52-1.04) mg/dL Est GFR (CKD-EPI)AfAm (>60 ml/min/1.73 sqM) Est GFR (CKD-EPI)NonAf (>60 ml/min/1.73 sqM) Glucose (74-99) mg/dL Plasma Lactic Acid Kenn (0.7-2.0) mmol/L Calcium (8.4-10.2) mg/dL Magnesium (1.6-2.3) mg/dL Total Bilirubin (0.2-1.3) mg/dL AST (14-36) U/L ALT (9-52) U/L Alkaline Phosphatase (38-126) U/L Total Creatine Kinase (30-135) U/L CK-MB (CK-2) (0.0-2.4) ng/mL CK-MB (CK-2) Rel Index Troponin I (0.000-0.034) ng/mL Total Protein (6.3-8.2) g/dL Albumin (3.5-5.0) g/dL Urine Color Yellow Urine Appearance Turbid H (Clear) Urine pH 6.0 (5.0-8.0) Ur Specific [place] 1.024 (1.001-1.035) Urine Protein 2+ H (Negative) Urine Glucose (UA) Negative (Negative) Urine Ketones Negative (Negative) Urine Blood Negative (Negative) Urine Nitrite Negative (Negative) Urine Bilirubin Negative (Negative) Urine Urobilinogen <2.0 (<2.0) mg/dL Ur Leukocyte Esterase Negative (Negative) Urine RBC 8 H (0-5) /hpf Amorphous Sediment Occasional H (None) /hpf Urine Bacteria Many H (None) /hpf Granular Casts 110 (0) /lpf Critical Care Time Critical Care Time: Yes Total Critical Care Time: 70 Disposition Clinical Impression: Acute respiratory failure, Septic shock, Pneumonia Disposition: ADMITTED IP TO THIS [facility] Condition: Critical Is patient prescribed a controlled substance at d/c from ED?: No Referrals: Rickey Desai MD [Primary Care Provider] - 1-2 days Decision Time: 00:20
[2017-12-26] MEDS ORDERED: PROPOFOL 1,000 MG in EMPTY BAG 1 BAG IV SCH (23:15)
[2017-12-26 23:23] LABS: Basophils % (A) 0 %; Eosinophils # (A) 0.1 k/uL (0-0.7); Eosinophils % (A) 1 %; HCT 40.3 % (34.0-46.0); HGB 12.9 gm/dL (11.4-16.0); Lymphocytes # (A) 1.2 k/uL (1.0-4.8); Lymphocytes % (A) 9 %; MCH 30.5 pg (25.0-35.0); MCHC 32.1 g/dL (31.0-37.0); MCV 94.9 fL (80.0-100.0); Mean Platelet Volume 9.8; Monocytes # (A) 0.2 k/uL (0-1.0); Monocytes % (A) 1 %; Neutrophils # (A) 12.3 k/uL (1.3-7.7); Neutrophils % (A) 89 %; Platelet Count 250 k/uL (150-450); RBC 4.25 m/uL (3.80-5.40); RDW 14.4 % (11.5-15.5); WBC 13.8 k/uL (3.8-10.6)
--- NOTE | 2017-12-26 23:27 | XR ---
EXAMINATION TYPE: XR chest 1V portable DATE OF EXAM: 12/26/2017 COMPARISON: None HISTORY: Tube placement TECHNIQUE: Single frontal view of the chest is obtained. FINDINGS: There is a very interstitial and alveolar edema. Endotracheal tube is 1.5 cm from the shabbir na. Right central venous catheter has tip over the right atrium. There is no pneumothorax. There is n asogastric tube in good position. IMPRESSION: Moderately severe pulmonary edema. Consider RDS and acute congestive heart failure.
[2017-12-26 23:28] LABS: ABG Base Excess -11.6 mmol/L; ABG HCO3 16 mmol/L (21-25); ABG Oxygen Saturation 94.5 % (94-97); ABG PCO2 41 mmHg (35-45); ABG PH 7.21 (7.35-7.45); ABG PO2 83 mmHg (83-108); ABG TCO2 18 mmol/L (19-24)
[2017-12-26 23:33] LABS: Partial Thromboplastin Time 26.4 sec (22.0-30.0); Prothrombin Time 10.1 sec (9.0-12.0)
[2017-12-26 23:36] LABS: ALT 26 U/L (9-52); AST 52 U/L (14-36); Albumin 2.6 g/dL (3.5-5.0); Alkaline Phosphatase 105 U/L (38-126); Anion Gap 5 mmol/L; Blood Urea Nitrogen 19 mg/dL (7-17); Calcium 6.7 mg/dL (8.4-10.2); Carbon Dioxide 17 mmol/L (22-30); Glucose 139 mg/dL (74-99); Potassium 4.7 mmol/L (3.5-5.1); Sodium 142 mmol/L (137-145); Total Bilirubin 0.3 mg/dL (0.2-1.3); Total Protein 4.8 g/dL (6.3-8.2)
[2017-12-26 23:45] LABS: Amorphous Sediment,Urine Occasional /hpf; Appearance,Urine Turbid (Clear); Bacteria,Urine Many /hpf; Bilirubin,Urine Negative (Negative); Blood,Urine Negative (Negative); Color,Urine Yellow; Glucose,Urine (UA) Negative (Negative); Granular Casts,Urine 110 /lpf (0); Ketones,Urine Negative (Negative); Leukocyte Esterase,Urine Negative (Negative); Nitrite,Urine Negative (Negative); Protein,Urine 2+ (Negative); RBC,Urine 8 /hpf (0-5); Specific Gravity,Urine 1.024 (1.001-1.035); Urobilinogen,Urine <2.0 mg/dL (<2.0)
[2017-12-26] MEDS: LORazepam 2 MG/ML INJ IV PRN (23:45)
[2017-12-26] MEDS ORDERED: SODIUM CHLORIDE 0.9% 1,000 ML IV ONE (23:48)
[2017-12-26 23:52] LABS: Chloride 120 mmol/L (98-107); Troponin I 0.586 ng/mL (0.000-0.034)
[2017-12-26] MEDS ORDERED: ACETAMINOPHEN IV (For NPO) 1,000 MG in SALINE 1 100ML.BAG IVPB STA (23:58)
[2017-12-27] MEDS ORDERED: VANCOMYCIN IV PER PHARMACY 1 EACH MISC MISCELLANE PRN (00:21)
[2017-12-27] MEDS ORDERED: ACETAMINOPHEN SUPPOSITORY 650 MG SUPP RECTAL PRN (00:22)
[2017-12-27] MEDS ORDERED: NALOXONE 0.4 MG/ML 1 ML VIAL IV PRN (00:22)
[2017-12-27] MEDS ORDERED: HEPARIN SODIUM,PORCINE 5,000 UNIT/ML 1 ML VIAL IV ONE (00:24)
[2017-12-27] MEDS ORDERED: ASPIRIN 81 MG PO STA (00:24)
[2017-12-27] MEDS ORDERED: CEFEPIME 1 GM in SODIUM CHLORIDE 0.9% 50 ML IVPB ONE (00:45)
--- NOTE | 2017-12-27 01:13 | CT ---
EXAMINATION TYPE: CT angio chest DATE OF EXAM: 12/27/2017 1:00 AM COMPARISON: None HISTORY: R/O PE CT DLP: 407.50 mGycm Automated exposure control for dose reduction was used. CONTRAST: CTA scan of the thorax is performed with IV Contrast, patient injected with 70 mL of Isovue 370, pulm onary embolism protocol. There are 3-D post processed images.. FINDINGS: Endotracheal tube is low and 1 cm from the afshin. There is diffuse pulmonary extensive interstitial infiltrate. Heart is top normal in size. There is nasogastric tube with the tip near the gastroesopha geal junction. There are airspace patchy consolidation at the lung bases. There is bilateral bronchia l adenopathy with lymph nodes measure up to 1.5 cm. There are mediastinal and paratracheal lymph node s that measure up to 2 x 1.3 cm. There is no evidence of aortic aneurysm or dissection. I see no fill ing defects in the pulmonary arteries. There is a 30% anterior wedging of T12 vertebral body. This is probably old. There is some fragment posterior extension encroaching on the spinal canal. IMPRESSION: SEVERE PULMONARY EDEMA. MEDIASTINAL AND MILD BRONCHIAL ADENOPATHY. NO EVIDENCE OF PULMONARY EMBOLISM. T12 COMPRESSION FRACTURES PROBABLY OLD.
[2017-12-27] MEDS ORDERED: CALCIUM GLUCONATE 1,000 MG in SODIUM CHLORIDE 0.9% 100 ML IVPB ONE (01:16)
[2017-12-27] MEDS: LORazepam 2 MG/ML INJ IV PRN ×3 (01:16→05:33)
[2017-12-27] MEDS: HEPARIN SOD,PORK IN 0.45% NACL 25,000 UNIT in 0.45% NACL 1 500ML.BAG IV SCH (01:21)
[2017-12-27] MEDS ORDERED: ASPIRIN 300 MG SUPP RECTAL STA (01:25)
[2017-12-27] MEDS: IPRATROPIUM-ALBUTEROL 3 ML NEB INHALATION SCH ×7 (03:44→23:41)
[2017-12-27 04:05] LABS: Glucose,Whole Blood 139 mg/dL (75-99)
[2017-12-27] MEDS: VANCOMYCIN 1,250 MG in SODIUM CHLORIDE 0.9% 250 ML IVPB SCH ×2 (04:18→14:42)
--- NOTE | 2017-12-27 04:52 | XR ---
EXAMINATION TYPE: XR chest 1V portable DATE OF EXAM: 12/27/2017 COMPARISON: Yesterday HISTORY: Check tube placement TECHNIQUE: Single frontal view of the chest is obtained. FINDINGS: Endotracheal tube is in fairly good position 4.5 cm from the afshin. There is pulmonary ed payal. There is right subclavian catheter with the tip over the right atrium. There is no pneumothorax. There are chest leads. There is nasogastric tube with the tip in the gastric fundus. IMPRESSION: Tubing in good position. There is moderate pulmonary edema that is unchanged..
[2017-12-27 04:58] LABS: Mean Platelet Volume 9.8; Platelet Count 212 k/uL (150-450)
[2017-12-27 05:00] LABS: Basophils % (A) 0 %; Eosinophils # (A) 0.1 k/uL (0-0.7); Eosinophils % (A) 1 %; HCT 40.4 % (34.0-46.0); HGB 12.4 gm/dL (11.4-16.0); Hypochromasia Slight; Lymphocytes # (A) 1.5 k/uL (1.0-4.8); Lymphocytes % (A) 16 %; MCH 29.1 pg (25.0-35.0); MCHC 30.8 g/dL (31.0-37.0); MCV 94.7 fL (80.0-100.0); Mean Platelet Volume 9.7; Monocytes # (A) 0.1 k/uL (0-1.0); Monocytes % (A) 1 %; Neutrophils # (A) 7.6 k/uL (1.3-7.7); Neutrophils % (A) 81 %; Platelet Count 224 k/uL (150-450); RBC 4.27 m/uL (3.80-5.40); RDW 14.5 % (11.5-15.5); WBC 9.4 k/uL (3.8-10.6)
[2017-12-27 05:19] LABS: Anion Gap 7 mmol/L; Blood Urea Nitrogen 19 mg/dL (7-17); Calcium 7.3 mg/dL (8.4-10.2); Carbon Dioxide 14 mmol/L (22-30); Glucose 105 mg/dL (74-99); Magnesium 2.1 mg/dL (1.6-2.3); Phosphorus 3.7 mg/dL (2.5-4.5); Potassium 4.4 mmol/L (3.5-5.1); Sodium 143 mmol/L (137-145)
[2017-12-27 05:23] LABS: Chloride 122 mmol/L (98-107)
[2017-12-27 05:40] LABS: Creatine Kinase MB 4.6 ng/mL (0.0-2.4); Troponin I 0.807 ng/mL (0.000-0.034)
[2017-12-27] MEDS ORDERED: CISATRACURIUM 2 MG/ML 5 ML VIAL IV ONE (05:54)
[2017-12-27] MEDS: EMPTY BAG 1 BAG with PROPOFOL 1,000 MG IV SCH ×3 (06:16→21:08)
[2017-12-27] MEDS: CISATRACURIUM 200 MG in SODIUM CHLORIDE 0.9% 180 ML IV SCH (06:19)
--- NOTE | 2017-12-27 06:55 | P.HPIM ---
History of Present Illness H&P Date: 12/27/17 Chief Complaint: severe respiratory distress 47-year-old female with COPD and history of seizures. presented to the hospitalist transfer from [facility] due to severe respiratory distress. Vital time I saw the patient she was intubated and unable to provide any meaningful history. History was obtained by reviewing medical records it seems like the patient has been in respiratory for the past few days, she went to [facility] initially where she was kept on BiPAP for a long time and was not to be septic she was given broad-spectrum antibiotics and resuscitated with IV fluids and transferred to a facility for further care. In the emergency department initially upon presentation she was still having respiratory distress and unable to answer questions with full sentences. Due to her severe respiratory distress she was intubated in the emergency department after she consented. Emergency Department have suspicion for acute PE, troponins were elevated, CT angiogram of the chest was performed showed diffuse pulmonary edema without any evidence of acute pulmonary embolism. No family present with the patient , patient has came from home. Review of Systems Unable to obtain meaningful review of systems due to patient being intubated Past Medical History Past Medical History: COPD, Seizure Disorder Additional Past Medical History / Comment(s): current smoker History of Any Multi-Drug Resistant Organisms: MRSA Date of last positivie culture/infection: unknown MDRO Source:: unknown Past Surgical History: Hysterectomy, Tubal Ligation Additional Past Surgical History / Comment(s): Thyroidectomy Past Anesthesia/Blood Transfusion Reactions: No Reported Reaction Past Psychological History: No Psychological Hx Reported Smoking Status: Current every day smoker Past Alcohol Use History: Occasional Past Drug Use History: None Reported - Past Family History Daughter(s) Family Medical History: No Reported History Mother History Unknown: Yes Additional Family Medical History / Comment(s): patient does not know mother's medical history Medications and Allergies Home Medications Medication Instructions Recorded Confirmed Type Amitriptyline HCl [Elavil] 25 mg PO BID 01/27/17 01/27/17 History DULoxetine HCL [Cymbalta] 30 mg PO DAILY 01/27/17 01/27/17 History Fioricet 50-300-40 1 cap PO Q8H PRN 01/27/17 01/27/17 History Levothyroxine Sodium [Synthroid] 150 mcg PO DAILY 01/27/17 01/27/17 History Pregabalin [Lyrica] 200 mg PO BID PRN 01/27/17 01/27/17 History Simvastatin [Zocor] 40 mg PO HS 01/27/17 01/27/17 History traZODone HCL 50 mg PO TID 01/27/17 01/27/17 History Nicotine 14Mg/24Hr Patch [Habitrol] 1 patch TRANSDERM DAILY #30 patch 01/28/17 Rx Pantoprazole [Protonix] 40 mg PO AC-BRKFST #30 tab 01/28/17 Rx levETIRAcetam [Keppra] 750 mg PO Q12HR #60 tab 01/28/17 Rx Allergies Allergy/AdvReac Type Severity Reaction Status Date / Time Penicillins Allergy Mild Unknown Verified 12/26/17 22:10 Physical Exam Vitals: Vital Signs Temp Pulse Resp BP Pulse Ox 12/27/17 06:00 94 41 H 96/54 100 12/27/17 05:30 90 47 H 99/61 97 12/27/17 05:00 92 37 H 93/50 100 12/27/17 04:30 89 87/55 100 12/27/17 04:29 91 12/27/17 04:17 90 12/27/17 04:00 99.2 F 90 39 H 109/61 100 12/27/17 03:53 92 18 118/57 100 12/27/17 03:50 92 40 H 97/58 100 12/27/17 03:15 92 18 102/51 100 12/27/17 02:15 96 18 105/57 100 12/27/17 01:34 102.9 F H 12/27/17 01:15 97 18 99/57 98 12/27/17 00:40 95 18 100/61 99 12/27/17 00:06 98 20 100/53 98 12/26/17 23:38 102.5 F H 12/26/17 23:32 99 16 94/55 96 12/26/17 23:28 99 16 115/54 92 L 12/26/17 23:03 100 21 92/57 93 L 12/26/17 22:10 99 40 H 107/64 12/26/17 22:08 99.2 F 117 H 40 H 65 L Intake and Output 12/26/17 12/26/17 12/27/17 14:59 22:59 06:59 Intake Total 220.41 Output Total 140 Balance 80.41 Intake: IV 200 Sodium Chloride 0.9% 1, 200 000 ml @ 100 mls/hr IV . Q10H STA Rx#:[id number] Intake, IV Titration 20.41 Amount Empty Bag 1 bag @ 10 MCG/ 20.41 KG/MIN 4.08 mls/hr IV . Q24H ADRIEL with Propofol 1, 000 mg Rx#:[id number] Output: Urine 140 Other: Voiding Method Indwelling Catheter Weight 68.039 kg Constitutional: Patient is intubated and sedated Eyes: Anicteric sclerae, moist conjunctiva Pupils equal round and round 2 mm bilaterally ENMT: NC/AT Intubated Neck: no masses, or JVD No carotid bruits No thyromegaly Lungs: Positive breath sounds throughout, wheezing and rhonci Clear to percussion Right subclavian central cath Cardiovascular: Heart regular in rate and rhythm, No murmurs, gallops, or rubs No peripheral edema Abdominal: Soft brandon cath in place Abdomen moving with respiration Normoactive bowel sounds No hepatomegaly, No splenomegaly No palpable mass No abdominal wall hernia noted Skin: Normal temperature, tone, texture, turgor No induration No subcutaneous nodules No rash, lesions No ulcers Extremities: No digital cyanosis No clubbing Pedal pulses intact and symmetrical Radial pulses intact and symmetrical No calf tenderness Psychiatric: Currently intubated and sedated Neuro unable to assess neurologic status the patient being intubated and sedated Lymphatics: no palpable cervical or supraclavicular , or inguinal lymph nodes Results CBC & Chem 7: 12/27/17 04:50 12/27/17 04:50 Labs: Abnormal Lab Results - Last 24 Hours (Table) 12/26/17 12/26/17 12/26/17 Range/Units 22:51 22:51 22:51 WBC 13.8 H (3.8-10.6) k/uL MCHC (31.0-37.0) g/dL Neutrophils # 12.3 H (1.3-7.7) k/uL APTT (22.0-30.0) sec ABG pH (7.35-7.45) ABG HCO3 (21-25) mmol/L ABG Total CO2 (19-24) mmol/L Chloride 120 H* (98-107) mmol/L Carbon Dioxide 17 L (22-30) mmol/L BUN 19 H (7-17) mg/dL Glucose 139 H (74-99) mg/dL POC Glucose (mg/dL) (75-99) mg/dL Calcium 6.7 L (8.4-10.2) mg/dL AST 52 H (14-36) U/L Total Creatine Kinase (30-135) U/L CK-MB (CK-2) (0.0-2.4) ng/mL Troponin I 0.586 H* (0.000-0.034) ng/mL Total Protein 4.8 L (6.3-8.2) g/dL Albumin 2.6 L (3.5-5.0) g/dL Urine Appearance (Clear) Urine Protein (Negative) Urine RBC (0-5) /hpf Amorphous Sediment (None) /hpf Urine Bacteria (None) /hpf 12/26/17 12/26/17 12/27/17 Range/Units 23:22 23:27 03:45 WBC (3.8-10.6) k/uL MCHC (31.0-37.0) g/dL Neutrophils # (1.3-7.7) k/uL APTT (22.0-30.0) sec ABG pH 7.21 L (7.35-7.45) ABG HCO3 16 L (21-25) mmol/L ABG Total CO2 18 L (19-24) mmol/L Chloride (98-107) mmol/L Carbon Dioxide (22-30) mmol/L BUN (7-17) mg/dL Glucose (74-99) mg/dL POC Glucose (mg/dL) 139 H (75-99) mg/dL Calcium (8.4-10.2) mg/dL AST (14-36) U/L Total Creatine Kinase (30-135) U/L CK-MB (CK-2) (0.0-2.4) ng/mL Troponin I (0.000-0.034) ng/mL Total Protein (6.3-8.2) g/dL Albumin (3.5-5.0) g/dL Urine Appearance Turbid H (Clear) Urine Protein 2+ H (Negative) Urine RBC 8 H (0-5) /hpf Amorphous Sediment Occasional H (None) /hpf Urine Bacteria Many H (None) /hpf 12/27/17 12/27/17 12/27/17 Range/Units 04:50 04:50 04:50 WBC (3.8-10.6) k/uL MCHC 30.8 L (31.0-37.0) g/dL Neutrophils # (1.3-7.7) k/uL APTT 43.6 H (22.0-30.0) sec ABG pH (7.35-7.45) ABG HCO3 (21-25) mmol/L ABG Total CO2 (19-24) mmol/L Chloride (98-107) mmol/L Carbon Dioxide (22-30) mmol/L BUN (7-17) mg/dL Glucose (74-99) mg/dL POC Glucose (mg/dL) (75-99) mg/dL Calcium (8.4-10.2) mg/dL AST (14-36) U/L Total Creatine Kinase 186 H (30-135) U/L CK-MB (CK-2) 4.6 H* (0.0-2.4) ng/mL Troponin I 0.807 H* (0.000-0.034) ng/mL Total Protein (6.3-8.2) g/dL Albumin (3.5-5.0) g/dL Urine Appearance (Clear) Urine Protein (Negative) Urine RBC (0-5) /hpf Amorphous Sediment (None) /hpf Urine Bacteria (None) /hpf 12/27/17 Range/Units 04:50 WBC (3.8-10.6) k/uL MCHC (31.0-37.0) g/dL Neutrophils # (1.3-7.7) k/uL APTT (22.0-30.0) sec ABG pH (7.35-7.45) ABG HCO3 (21-25) mmol/L ABG Total CO2 (19-24) mmol/L Chloride 122 H* (98-107) mmol/L Carbon Dioxide 14 L (22-30) mmol/L BUN 19 H (7-17) mg/dL Glucose 105 H (74-99) mg/dL POC Glucose (mg/dL) (75-99) mg/dL Calcium 7.3 L (8.4-10.2) mg/dL AST (14-36) U/L Total Creatine Kinase (30-135) U/L CK-MB (CK-2) (0.0-2.4) ng/mL Troponin I (0.000-0.034) ng/mL Total Protein (6.3-8.2) g/dL Albumin (3.5-5.0) g/dL Urine Appearance (Clear) Urine Protein (Negative) Urine RBC (0-5) /hpf Amorphous Sediment (None) /hpf Urine Bacteria (None) /hpf Assessment and Plan Assessment: 47-year-old female with history of COPD admitted to the hospital as an inpatient due to septic shock and acute respiratory distress with possible pneumonia patient was transferred to our facility from [facility] severe respiratory distress she was intubated in our facility in the ED patient was kept on broad-spectrum antibiotic resuscitated with IV fluids he was also found to have elevated troponins this could be secondary to sepsis, 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 consult Plan: Severe septic shock due to possible pneumonia Acute hypoxic respiratory failure secondary to pneumonia with underlying COPD Ventilatory dependent respiratory failure secondary to above Metabolic acidosis Lactic acidosis (reported a registered hospital) resolved upon repeating lactic acid after fluid resuscitation Elevated troponins most likely secondary to sepsis, rule out acute coronary syndrome DVT prophylaxis currently patient heparin drip due to elevated troponins CODE STATUS full code Continue with aggressive resuscitative measures Cefepime and vancomycin IV fluid resuscitation ICU care and ventilator care Follow up labs Neurologic Currently patient is sedated Respiratory Currently respiratory failure vent dependent Continue with vent care Cardiovascular Currently systolic blood pressure is in the 90s to 100 without IV pressors, this morning blood pressure improved and stable now Continue with IV fluid hydration Elevated troponins and rule out ACS Infectious Septic shock secondary to pneumonia Continue with broad-spectrum antibiotics Follow-up cultures GI Currently nothing by mouth NG tube in place to intermittent suction, dark drainage, R/o GI bleeding No evidence of GI obstruction PPI Renal good urine output, brandon cath in place. monitor renal function and urine output Sepsis - Sepsis Sepsis Focused Exam #2 Sepsis Focused Exam Date: 12/27/17 Sepsis Focused Exam Time: 01:15 Sepsis Focused Exam Complete: Yes Vital Signs & RN Notes Reviewed: Yes Capillary Refill: < 2 Seconds: Fingers, Toes Peripheral Pulses: Normal: Radial (R), Radial (L) Skin Color: Normal for Patient Respiratory Exam: rales, rhonchi Cardiovascular Exam: tachycardia
[2017-12-27] MEDS: HEPARIN SODIUM,PORCINE 5,000 UNIT/ML 1 ML VIAL IV PRN ×2 (07:14→14:39)
[2017-12-27 08:10] LABS: Prothrombin Time 10.1 sec (9.0-12.0)
[2017-12-27 08:39] LABS: ABG Base Excess -10.4 mmol/L; ABG HCO3 20 mmol/L (21-25); ABG Oxygen Saturation 91.7 % (94-97); ABG PCO2 66 mmHg (35-45); ABG PO2 79 mmHg (83-108); ABG TCO2 22 mmol/L (19-24)
[2017-12-27 08:42] LABS: ABG PH 7.08 (7.35-7.45)
[2017-12-27] MEDS ORDERED: FUROSEMIDE 10 MG/ML 4 ML VIAL IV STA (08:48)
[2017-12-27] MEDS ORDERED: PANTOPRAZOLE 40 MG/10 ML VIAL IV SCH (09:00)
--- NOTE | 2017-12-27 09:27 | P.PN ---
Subjective Progress Note Date: 12/27/17 Principal diagnosis: Shortness of breath Patient is a 47-year-old female with past medical history of COPD, seizure disorder, , and prior MRSA infection. She initially presented to [facility] due to severe respiratory distress. Review of medical records show that the patient had been on BiPAP for the last few days and was worried about being septic and was started on broad-spectrum antibiotics. She was transferred here secondary to need for ICU care. Due to her severe respiratory distress she was intubated in the emergency department and placed on the ventilator. CT of the chest here showed diffuse pulmonary edema but no lobar consolidation. Initial laboratory analysis showed a white blood cell count of 13.8. She was acidotic with pH of 7.21 and her troponin was increasing. She was admitted to ICU. She was started on DuoNeb's, cefepime , Nimbex, heparin drip, propofol, and vancomycin. Her repeat ABG showed worsening of her acidosis with a pH of 7.0. Critical care is following closely. Cardiology was consulted due to elevated troponin. Dr. Hilliard was consulted due to left wrist injury. Patient seen and examined at bedside in ICU with nursing present. Has been unable to get ahold of family. Patient is sedated and paralyzed on vent. Currently working on correcting acidosis. Objective - Vital Signs Vital signs: Vital Signs Temp 101.7 F H 12/27/17 08:00 Pulse 114 H 12/27/17 09:00 Resp 24 12/27/17 09:00 BP 144/77 12/27/17 09:00 Pulse Ox 93 L 12/27/17 09:00 Intake & Output 12/26/17 12/27/17 12/27/17 18:59 06:59 18:59 Intake Total 275.177 649.076 Output Total 140 368 Balance 135.177 281.076 Weight 68.039 kg 74.9 kg Intake: IV 200 550 Sodium Chloride 0.9% 1, 200 300 000 ml @ 50 mls/hr IV . Q20H STA Rx#:[id number] Vancomycin 1,250 mg In 250 Sodium Chloride 0.9% 250 ml @ 125 mls/hr IVPB Q12H ADRIEL Rx#:[id number] Intake, IV Titration 75.177 99.076 Amount Cisatracurium 200 mg In 3.06 Sodium Chloride 0.9% 180 ml @ 1 MCG/KG/MIN 4.08 mls/hr IV .Q24H ADRIEL Rx#: [id number] Empty Bag 1 bag @ 10 MCG/ 75.177 KG/MIN 4.08 mls/hr IV . Q24H ADRIEL with Propofol 1, 000 mg Rx#:[id number] Heparin Sod,Pork in 0.45% 96.016 NaCl 25,000 unit In 0.45 % NaCl 1 500ml.bag @ 12 UNITS/KG/HR 16.32 mls/hr IV .Q24H ADRIEL Rx#: [id number] Output: Urine 140 368 Other: Voiding Method Indwelling Catheter - Exam General: ill appearing, maximal distress, appears at stated age Derm: warm, dry Head: atraumatic, normocephalic, symmetric Mouth: no lip lesion, + ET tube in place Cardiovascular: S1S2 reg, no murmur, positive posterior tibial pulse bilateral, Lungs: course bs b/l , no rhonchi, no rales , no accessory muscle use, + Vent Abdominal: soft, no appreciable organomegaly Ext: no gross muscle atrophy, no edema, no contractures Neuro: Paralyzed Psych: sedated on vent - Labs CBC & Chem 7: 12/27/17 04:50 12/27/17 04:50 Labs: Abnormal Lab Results - Last 24 Hours (Table) 12/26/17 12/26/17 12/26/17 Range/Units 22:51 22:51 22:51 WBC 13.8 H (3.8-10.6) k/uL MCHC (31.0-37.0) g/dL Neutrophils # 12.3 H (1.3-7.7) k/uL APTT (22.0-30.0) sec ABG pH (7.35-7.45) ABG pCO2 (35-45) mmHg ABG pO2 (83-108) mmHg ABG HCO3 (21-25) mmol/L ABG Total CO2 (19-24) mmol/L ABG O2 Saturation (94-97) % Chloride 120 H* (98-107) mmol/L Carbon Dioxide 17 L (22-30) mmol/L BUN 19 H (7-17) mg/dL Glucose 139 H (74-99) mg/dL POC Glucose (mg/dL) (75-99) mg/dL Calcium 6.7 L (8.4-10.2) mg/dL AST 52 H (14-36) U/L Total Creatine Kinase (30-135) U/L CK-MB (CK-2) (0.0-2.4) ng/mL Troponin I 0.586 H* (0.000-0.034) ng/mL Total Protein 4.8 L (6.3-8.2) g/dL Albumin 2.6 L (3.5-5.0) g/dL Urine Appearance (Clear) Urine Protein (Negative) Urine RBC (0-5) /hpf Amorphous Sediment (None) /hpf Urine Bacteria (None) /hpf 12/26/17 12/26/17 12/27/17 Range/Units 23:22 23:27 03:45 WBC (3.8-10.6) k/uL MCHC (31.0-37.0) g/dL Neutrophils # (1.3-7.7) k/uL APTT (22.0-30.0) sec ABG pH 7.21 L (7.35-7.45) ABG pCO2 (35-45) mmHg ABG pO2 (83-108) mmHg ABG HCO3 16 L (21-25) mmol/L ABG Total CO2 18 L (19-24) mmol/L ABG O2 Saturation (94-97) % Chloride (98-107) mmol/L Carbon Dioxide (22-30) mmol/L BUN (7-17) mg/dL Glucose (74-99) mg/dL POC Glucose (mg/dL) 139 H (75-99) mg/dL Calcium (8.4-10.2) mg/dL AST (14-36) U/L Total Creatine Kinase (30-135) U/L CK-MB (CK-2) (0.0-2.4) ng/mL Troponin I (0.000-0.034) ng/mL Total Protein (6.3-8.2) g/dL Albumin (3.5-5.0) g/dL Urine Appearance Turbid H (Clear) Urine Protein 2+ H (Negative) Urine RBC 8 H (0-5) /hpf Amorphous Sediment Occasional H (None) /hpf Urine Bacteria Many H (None) /hpf 0812/27/17 12/27/17 Range/Units 04:50 04:50 04:50 WBC (3.8-10.6) k/uL MCHC 30.8 L (31.0-37.0) g/dL Neutrophils # (1.3-7.7) k/uL APTT 43.6 H (22.0-30.0) sec ABG pH (7.35-7.45) ABG pCO2 (35-45) mmHg ABG pO2 (83-108) mmHg ABG HCO3 (21-25) mmol/L ABG Total CO2 (19-24) mmol/L ABG O2 Saturation (94-97) % Chloride (98-107) mmol/L Carbon Dioxide (22-30) mmol/L BUN (7-17) mg/dL Glucose (74-99) mg/dL POC Glucose (mg/dL) (75-99) mg/dL Calcium (8.4-10.2) mg/dL AST (14-36) U/L Total Creatine Kinase 186 H (30-135) U/L CK-MB (CK-2) 4.6 H* (0.0-2.4) ng/mL Troponin I 0.807 H* (0.000-0.034) ng/mL Total Protein (6.3-8.2) g/dL Albumin (3.5-5.0) g/dL Urine Appearance (Clear) Urine Protein (Negative) Urine RBC (0-5) /hpf Amorphous Sediment (None) /hpf Urine Bacteria (None) /hpf 12/27/17 12/27/17 12/27/17 Range/Units 04:50 06:25 08:36 WBC (3.8-10.6) k/uL MCHC (31.0-37.0) g/dL Neutrophils # (1.3-7.7) k/uL APTT 39.2 H (22.0-30.0) sec ABG pH 7.08 L* (7.35-7.45) ABG pCO2 66 H (35-45) mmHg ABG pO2 79 L (83-108) mmHg ABG HCO3 20 L (21-25) mmol/L ABG Total CO2 (19-24) mmol/L ABG O2 Saturation 91.7 L (94-97) % Chloride 122 H* (98-107) mmol/L Carbon Dioxide 14 L (22-30) mmol/L BUN 19 H (7-17) mg/dL Glucose 105 H (74-99) mg/dL POC Glucose (mg/dL) (75-99) mg/dL Calcium 7.3 L (8.4-10.2) mg/dL AST (14-36) U/L Total Creatine Kinase (30-135) U/L CK-MB (CK-2) (0.0-2.4) ng/mL Troponin I (0.000-0.034) ng/mL Total Protein (6.3-8.2) g/dL Albumin (3.5-5.0) g/dL Urine Appearance (Clear) Urine Protein (Negative) Urine RBC (0-5) /hpf Amorphous Sediment (None) /hpf Urine Bacteria (None) /hpf Assessment and Plan Assessment: Pneumonia, possible gram negative or MRSA with sepsis - cefepime and vanco - Add levaquin for atypical coveraged - Possible bronch today for sputum - sputum culture, and blood culture - IVF - pulmonary hygeine Acute exacerbation of COPD - solumedrol - bronchodilators - abx as above - pulmonary hygeine - SSI for steroids Hypercapnic/hypoxic respiratory failure - management per critical care - on nimbex and vent Hyperchloremic metabolic acidosis - change IVF to D5W with bicarb Elevated troponin - serial troponins, ASA - consult cardio - echo - Heparin gtt Seizure disorder - does not appear to be chronically on medications - monitor for signs of seizure - check CPK Hypothyroidism - synthroid Resolved: Lactic acidosis Poor overall prognosis DVT prophylaxis: heparin gtt Discussed with: Nursing, Dr. Carias Anticipated discharge: undetermined Anticipated discharge place: undetermined A total of 45 minutes was spent on the care of this complex patient more than 50 % of the time was spent in counseling and care coordination.
[2017-12-27] MEDS: CHLORHEXIDINE GLUCONATE 15 ML CUP MUCOUS MEM SCH ×2 (09:51→21:11)
[2017-12-27] MEDS: PANTOPRAZOLE 40 MG/10 ML VIAL IV SCH ×2 (09:51→21:12)
[2017-12-27 10:04] LABS: ABG Base Excess -8.3 mmol/L; ABG HCO3 20 mmol/L (21-25); ABG Oxygen Saturation 94.3 % (94-97); ABG PCO2 56 mmHg (35-45); ABG PO2 81 mmHg (83-108); ABG TCO2 22 mmol/L (19-24)
[2017-12-27 10:08] LABS: ABG PH 7.17 (7.35-7.45)
[2017-12-27] MEDS: methylPREDNISolone SOD SUCCI 125 MG/2 ML VIAL IV SCH ×2 (10:40→16:30)
[2017-12-27] MEDS: DEXTROSE 5% IN WATER 1,000 ML with SODIUM BICARB (1 MEQ/ML) 150 ML IV SCH (10:44)
[2017-12-27] MEDS ORDERED: SODIUM BICARB 8.4% 50 ML SYR (1 MEQ/ML) ONE (10:48)
[2017-12-27] MEDS ORDERED: SODIUM BICARB 8.4% 50 ML SYR (1 MEQ/ML) IV ONE (10:58)
--- NOTE | 2017-12-27 11:12 | CONS ---
CONSULTATION Mrs. Holly is a 47-year-old female, who is seen for cardiac evaluation. This patient's record from the [facility] as well as records reviewed. Patient went to the [facility] with a complaint of severe shortness of breath which has been progressively worse. Patient was in severe respiratory distress in the [facility] with evidence of lactic acidosis as well as hypotensive. Patient was put on the BiPAP and patient was transferred with a diagnosis of probable pneumonia and sepsis. Patient does have a history of COPD. There is no definite previous cardiac history available. History of MRSA infection in the past. Patient's home medications include Elavil, Cymbalta, Fioricet, Lyrica, Zocor and Synthroid. PAST MEDICAL HISTORY: History of COPD and history of seizure disorder. Patient is currently smoking and history of MRSA infection, exact details of which are not available, hysterectomy and tubal ligation. PHYSICAL EXAMINATION: At present reveals a 47-year-old female, who is intubated. Patient had a temperature of 99.2 in the emergency room. HEENT examination is negative. Neck is supple. Jugular venous pressure elevated. Heart, first and second heart sounds are normal. Lung examination reveals bilateral coarse rales. Abdomen is soft. Extremities, peripheral pulses are 2+. EKG shows nonspecific ST-T changes. Patient's initial blood gases showed pH of 7.08, pCO2 of 66, and bicarb was 20 with a base excess of 10. Patient's lactic acid level has come down. Patient's troponin is 0.586 and 0.807, echocardiogram reveals overall normal left ventricular systolic function. Patient's CAT scan is suggestive of pulmonary edema with bilateral diffuse pulmonary infiltrates. FINAL IMPRESSION: This patient is admitted with acute respiratory failure and respiratory distress. The chest x-ray suggestive of pulmonary edema. Whether this is cardiogenic or acute respiratory distress syndrome secondary to bilateral pneumonia is a possibility. Patient's echocardiogram reveals normal left ventricular systolic function. Chest x- ray shows some improvement as compared to yesterday. Would recommend to gently diurese the patient with 40 mg IV q.12 hourly and the abnormal troponin is probably secondary to severe respiratory distress, hypoxia and hypotension. MMODL / IJN: [id number] /
[2017-12-27] MEDS: fentaNYL (PF) 2,500 MCG in SODIUM CHLORIDE 0.9% 200 ML IV SCH (11:41)
[2017-12-27] MEDS: LEVOFLOXACIN 750MG-D5W PMX 750 MG in DEXTROSE/WATER 1 150ML.BAG IVPB SCH (11:42)
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
[2017-12-27 12:11] LABS: Glucose,Whole Blood 164 mg/dL (75-99)
[2017-12-27 12:13] LABS: Creatine Kinase MB 19.1 ng/mL (0.0-2.4); Troponin I 5.46 ng/mL (0.000-0.034)
[2017-12-27 12:13] LABS: ABG Base Excess -4.7 mmol/L; ABG HCO3 23 mmol/L (21-25); ABG PCO2 54 mmHg (35-45); ABG PH 7.23 (7.35-7.45); ABG PO2 335 mmHg (83-108); ABG TCO2 24 mmol/L (19-24)
[2017-12-27] MEDS: INSULIN ASPART 100 UNIT/ML 1 ML 10 ML VIAL SQ SCH ×2 (13:22→18:48)
[2017-12-27] MEDS: ARTIFICIAL TEARS-HYPROMELLOSE DROPS 15 ML BTL BOTH EYES SCH ×3 (13:22→20:45)
[2017-12-27] MEDS: CEFEPIME 2 GM in SODIUM CHLORIDE 0.9% 50 ML IVPB SCH (13:25)
--- NOTE | 2017-12-27 14:03 | XR ---
EXAMINATION TYPE: XR chest 1V portable DATE OF EXAM: 12/27/2017, outside exam 12/26/2017, x-ray chest COMPARISON: Prior chest x-ray 12/27/2017 and earlier time HISTORY: Intubated, status post bronchoscopy TECHNIQUE: Single frontal view of the chest is obtained. FINDINGS: Endotracheal tube and NG tube are in place, side-port of the NG tube is cephalad to the le tori of the gastroesophageal junction as on previous exam, endotracheal tube overlying appropriate pos ition. Right subclavian central venous catheter shows the distal tip overlying the right atrium. Ther e are overlying cardiac leads. Bilateral interstitial and airspace disease is again noted. No evident pneumothorax or sizable effusion. Irregularity the proximal right humerus is compatible with fractur e and was noted on outside chest x-ray dated 12/26/2017 IMPRESSION: NG tube is described. Correlate for pulmonary edema, pneumonia, ARDS. Additional finding s above.
[2017-12-27 14:15] LABS: Appearance,BF Hazy; Nucleated Cells, Body Fluid 710 /uL; RBC, Body Fluid 120 /uL
[2017-12-27 14:16] LABS: Mononuclear WBC,Body Fluid 2 %; Polynuclear WBC,Body Fluid 98 %; Total Cells Counted,Body Fluid 100
[2017-12-27 14:28] LABS: ABG Base Excess -4.1 mmol/L; ABG HCO3 23 mmol/L (21-25); ABG Oxygen Saturation 97.7 % (94-97); ABG PCO2 52 mmHg (35-45); ABG PH 7.26 (7.35-7.45); ABG PO2 96 mmHg (83-108); ABG TCO2 25 mmol/L (19-24)
--- NOTE | 2017-12-27 15:46 | XR ---
EXAMINATION TYPE: XR wrist complete LT DATE OF EXAM: 12/27/2017 COMPARISON: None HISTORY: Fractured wrist TECHNIQUE: Three-view left wrist FINDINGS: There is an impacted transverse fracture of the distal radius. This is posterior displaced and posteriorly angulated. Soft tissue swelling is over the fracture site. IMPRESSION: 1. Impacted dorsally angulated distal radial fracture. This appears to have some extension into the articular surface.
--- NOTE | 2017-12-27 17:09 | PCN ---
PROCEDURE NOTE OPERATIVE REPORT: Placement of a right radial arterial line. PREOPERATIVE DIAGNOSIS: Acute respiratory failure. POSTOPERATIVE DIAGNOSIS: Acute respiratory failure. ANESTHESIA USED: None deployed. PROCEDURE: The right wrist was prepared in a sterile fashion, drapes were applied. The right radial artery was palpated, cannulated easily, and a guidewire was placed. A [employer] catheter was inserted over the guidewire, and the guidewire was removed. Good blood flow, good waveform noted. Line was secured using 3.0 silk sutures. MMODL / IJN: [id number] /
--- NOTE | 2017-12-27 17:09 | PCN ---
PROCEDURE NOTE OPERATIVE REPORT: Bronchoscopy and bronchoalveolar lavage. PREOPERATIVE DIAGNOSES: Acute respiratory failure and pneumonia. POSTOPERATIVE DIAGNOSIS: Acute respiratory failure and pneumonia. ANESTHESIA USED: The patient was already on propofol, fentanyl, and Nimbex drip. PROCEDURE: The patient was placed in the supine position, she was already on mechanical ventilation, and we were monitoring her O2 saturation continuously, blood pressure was continuously monitored, and cardiac rhythm was continuously monitored. Then the bronchoscope was advanced through the adapter down the endotracheal tube, the distal end was noted to be about 2 cm above the afshin. No significant purulent secretions were noted. Thorough examination was done of the right upper lobe, right middle lobe, right lower lobe, left upper lobe lingula and left lower lobe. Minimal purulence was noted mostly in the left lower lobe, and bronchoalveolar lavage was done of the left lower lobe and lingula. Then, we moved into the right lower lobe, lavage of the right lower lobe was done. The secretions were noted to be relatively clear with very minimal purulence if any. Procedure was well tolerated, the fluid was sent for different diagnostic studies and cultures, no evidence of any immediate complications. MMODL / IJN: [id number] /
--- NOTE | 2017-12-27 17:56 | ECHOF ---
Referral Reason:Cardiac evaluation, respiratory failure MEASUREMENTS -------- HEIGHT: 165.1 cm WEIGHT: 72.6 kg BP: 137/74 RVIDd: 3.8 cm (< 3.3) IVSd: 0.9 cm (0.6 - 1.1) LVIDd: 3.1 cm (3.9 - 5.3) LVPWd: 1.0 cm (0.6 - 1.1) IVSs: 1.4 cm LVIDs: 1.9 cm LVPWs: 1.5 cm Ao Diam: 2.8 cm (2.0 - 3.7) AV Cusp: 2.0 cm (1.5 - 2.6) LA Diam: 2.4 cm (2.7 - 3.8) MV EXCURSION: 20.477 mm (> 18.000) MV EF SLOPE: 95 mm/s (70 - 150) EPSS: 0.2 cm MV E John: 1.07 m/s MV DecT: 121 ms MV A John: 1.07 m/s MV E/A Ratio: 1.00 RAP: 5.00 mmHg RVSP: 22.40 mmHg FINDINGS -------- Resting tachycardia (HR>100bpm). This was a technically good study. The left ventricular size is normal. Left ventricular wall thickness is normal. Overall left vent ricular systolic function is normal with, an EF between 60 - 65 %. The right ventricle is mild to moderately enlarged. The left atrium is normal in size. The right atrium is normal in size. The aortic valve is trileaflet and appears structurally normal. The mitral valve leaflets are mildly thickened. Mild mitral annular calcification present. There is trace mitral regurgitation. Trace tricuspid regurgitation present. The right ventricular systolic pressure, as measured by Dopp ler, is 22.40mmHg. Pulmonic valve appears structurally normal. The aortic root size is normal. Normal inferior vena cava with normal inspiratory collapse consistent with estimated right atrial pre ssure of 5 mmHg. The pericardium is normal. CONCLUSIONS -------- 1. Resting tachycardia (HR>100bpm). 2. This was a technically good study. 3. The left ventricular size is normal. 4. Left ventricular wall thickness is normal. 5. Overall left ventricular systolic function is normal with, an EF between 60 - 65 %. 6. The right ventricle is mild to moderately enlarged. 7. The left atrium is normal in size. 8. The right atrium is normal in size. 9. The aortic valve is trileaflet and appears structurally normal. 10. The mitral valve leaflets are mildly thickened. 11. Mild mitral annular calcification present. 12. There is trace mitral regurgitation. 13. Trace tricuspid regurgitation present. 14. The right ventricular systolic pressure, as measured by Doppler, is 22.40mmHg. 15. Pulmonic valve appears structurally normal. 16. The aortic root size is normal. 17. Normal inferior vena cava with normal inspiratory collapse consistent with estimated right atrial pressure of 5 mmHg. 18. The pericardium is normal. RECEIVING TELLER: Latoya Walters RDCS
[2017-12-27 18:23] LABS: Creatine Kinase MB 16.4 ng/mL (0.0-2.4)
[2017-12-27 18:37] LABS: Glucose,Whole Blood 148 mg/dL (75-99)
[2017-12-27] MEDS: ATORVASTATIN 20 MG TAB PO SCH (21:11)
[2017-12-27] MEDS: FUROSEMIDE 10 MG/ML 4 ML VIAL IV SCH (21:11)
[2017-12-27 23:34] LABS: Creatine Kinase MB 11.3 ng/mL (0.0-2.4); Troponin I 1.85 ng/mL (0.000-0.034)
[2017-12-28] MEDS: ARTIFICIAL TEARS-HYPROMELLOSE DROPS 15 ML BTL BOTH EYES SCH ×6 (00:05→21:42)
[2017-12-28] MEDS: methylPREDNISolone SOD SUCCI 125 MG/2 ML VIAL IV SCH ×3 (00:05→17:17)
[2017-12-28 00:09] LABS: Glucose,Whole Blood 176 mg/dL (75-99)
[2017-12-28] MEDS: INSULIN ASPART 100 UNIT/ML 1 ML 10 ML VIAL SQ SCH ×5 (00:10→21:54)
[2017-12-28] MEDS: HEPARIN SODIUM,PORCINE 5,000 UNIT/ML 1 ML VIAL IV PRN (01:12)
[2017-12-28] MEDS: HEPARIN SOD,PORK IN 0.45% NACL 25,000 UNIT in 0.45% NACL 1 500ML.BAG IV SCH ×2 (01:15→19:53)
[2017-12-28] MEDS: VANCOMYCIN 1,250 MG in SODIUM CHLORIDE 0.9% 250 ML IVPB SCH ×2 (01:17→14:46)
[2017-12-28] MEDS: CEFEPIME 2 GM in SODIUM CHLORIDE 0.9% 50 ML IVPB SCH ×2 (01:27→14:46)
[2017-12-28] MEDS: CISATRACURIUM 200 MG in SODIUM CHLORIDE 0.9% 180 ML IV SCH (01:45)
[2017-12-28] MEDS: IPRATROPIUM-ALBUTEROL 3 ML NEB INHALATION SCH ×5 (03:49→19:31)
[2017-12-28 03:58] LABS: Basophils % (A) 0 %; Eosinophils # (A) 0.1 k/uL (0-0.7); Eosinophils % (A) 1 %; HGB 11.6 gm/dL (11.4-16.0); Lymphocytes # (A) 0.7 k/uL (1.0-4.8); Lymphocytes % (A) 11 %; MCH 29.9 pg (25.0-35.0); MCHC 32.3 g/dL (31.0-37.0); MCV 92.8 fL (80.0-100.0); Mean Platelet Volume 9.2; Monocytes # (A) 0.2 k/uL (0-1.0); Monocytes % (A) 2 %; Neutrophils # (A) 5.6 k/uL (1.3-7.7); Neutrophils % (A) 84 %; Platelet Count 237 k/uL (150-450); RBC 3.88 m/uL (3.80-5.40); RDW 14.5 % (11.5-15.5); WBC 6.6 k/uL (3.8-10.6)
[2017-12-28 04:16] LABS: Anion Gap 3 mmol/L; Blood Urea Nitrogen 21 mg/dL (7-17); Calcium 7.3 mg/dL (8.4-10.2); Carbon Dioxide 31 mmol/L (22-30); Chloride 108 mmol/L (98-107); Cholesterol 90 mg/dL (<200); Glucose 147 mg/dL (74-99); HDL Cholesterol 16 mg/dL (40-60); LDL Cholesterol,Calculated 34 mg/dL (0-99); Phosphorus 2.5 mg/dL (2.5-4.5); Potassium 3.5 mmol/L (3.5-5.1); Sodium 142 mmol/L (137-145); Triglycerides 200 mg/dL (<150)
[2017-12-28 06:43] LABS: Glucose,Whole Blood 154 mg/dL (75-99)
[2017-12-28] MEDS: LEVOTHYROXINE 75 MCG TAB PO SCH (06:46)
--- NOTE | 2017-12-28 07:32 | XR ---
EXAMINATION TYPE: XR chest 1V DATE OF EXAM: 12/28/2017 COMPARISON: 12/27/2017 HISTORY: 47-year-old female tube placement TECHNIQUE: Single frontal view of the chest is obtained. FINDINGS: ET tube tip is along the superior margin of the medial clavicular heads. Consider passing by 1.5 cm. The NG tube is high with tip at the GE junction. It could be advanced by approximately 10 cm further into the stomach. Right subclavian CVC tip in the upper right atrium. Heart remains upper limits of normal in size. Diffuse patchy airspace opacities, right greater than l eft persist but show slightly less confluent appearance. Partially visualized fracture of the proximal right humerus. IMPRESSION: 1. Persistent but improving right greater than left airspace disease, possible pulmonary edema. 2. Consider advancing the ET tube by 1.5 cm. 3. The NG tube could be advanced into the stomach by 10 cm. 4. Incompletely visualized fracture of the proximal right humerus.
[2017-12-28] MEDS ORDERED: Potassium Replacement Protocol 1 EACH MISC MISCELLANE PRN (07:40)
[2017-12-28] MEDS: POTASSIUM BICARBONATE/CIT AC 20 MEQ TABLET.EFF NG-TUBE SCH ×2 (08:31→09:58)
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
--- NOTE | 2017-12-28 09:53 | P.PN ---
Subjective Progress Note Date: 12/28/17 Principal diagnosis: Acute respiratory failure Patient is still sedated and intubated. No acute events overnight per nursing staff. Objective - Vital Signs Vital signs: Vital Signs Temp 98.9 F 12/28/17 09:00 Pulse 93 12/28/17 09:00 Resp 34 H 12/28/17 09:00 BP 91/60 12/27/17 13:00 Pulse Ox 100 12/28/17 09:00 Intake & Output 12/27/17 12/28/17 12/28/17 18:59 06:59 18:59 Intake Total 2730.626 2708.447 330 Output Total 2623 2093 152 Balance -974.931 -195.553 178 Weight 74.9 kg 76.657 kg Intake: IV 1300 1010 130 .9 KVO 110 20 Cefepime 1 gm In Sodium 50 50 Chloride 0.9% 50 ml @ 100 mls/hr IVPB ONCE ONE Rx# :[id number] Dextrose 5% in Water 1, 400 600 100 000 ml @ 50 mls/hr IV . Q23H [facility] with Sodium Bicarb (1 Meq/ml) 150 ml Rx#:[id number] Levofloxacin 750Mg-D5w 0 Pmx 750 mg In Dextrose/ Water 1 150ml.bag @ 100 mls/hr IVPB Q24H [facility] Rx#: [id number] Sodium Chloride 0.9% 1, 350 000 ml @ 50 mls/hr IV . Q20H STA Rx#:[id number] Vancomycin 1,250 mg In 500 250 Sodium Chloride 0.9% 250 ml @ 125 mls/hr IVPB Q12H [facility] Rx#:[id number] fentaNYL (PF) 2,500 mcg 10 In Sodium Chloride 0.9% 200 ml @ 50 MCG/HR 5 mls/ hr IV .Q24H [facility] Rx#: [id number] Intake, IV Titration 348.069 507.447 Amount Cisatracurium 200 mg In 3.06 152.456 Sodium Chloride 0.9% 180 ml @ 1 MCG/KG/MIN 4.08 mls/hr IV .Q24H [facility] Rx#: [id number] Empty Bag 1 bag @ 10 MCG/ 100 100 KG/MIN 4.08 mls/hr IV . Q24H [facility] with Propofol 1, 000 mg Rx#:[id number] Heparin Sod,Pork in 0.45% 245.009 254.991 NaCl 25,000 unit In 0.45 % NaCl 1 500ml.bag @ 12 UNITS/KG/HR 16.32 mls/hr IV .Q24H PENDING SALE TO [facility] Rx#: [id number] Tube Feeding 320 200 Other 60 Output: Urine 2623 2093 152 Other: Voiding Method Indwelling Catheter Indwelling Catheter Indwelling Catheter ABP, PAP, CO, CI - Last Documented Arterial Blood Pressure 127/54 - Exam General: The patient is sedated and intubated Eye: there is normal conjunctiva bilaterally. Cardiovascular: Normal S1-S2, no S3-S4, no murmurs. Respiratory: Lungs clear to anterior chest auscultation bilaterally with mechanical ventilator sounds Gastrointestinal: Abdomen is soft, nontender Musculoskeletal: There is +1 pedal edema. Skin: Skin is warm and dry - Labs CBC & Chem 7: 12/28/17 03:45 12/28/17 03:45 Labs: Abnormal Lab Results - Last 24 Hours (Table) 12/27/17 12/27/17 12/27/17 Range/Units 09:56 11:00 12:04 Lymphocytes # (1.0-4.8) k/uL APTT (22.0-30.0) sec ABG pH 7.17 L* 7.23 L (7.35-7.45) ABG pCO2 56 H 54 H (35-45) mmHg ABG pO2 81 L 335 H (83-108) mmHg ABG HCO3 20 L (21-25) mmol/L ABG Total CO2 (19-24) mmol/L ABG O2 Saturation 100.0 H (94-97) % Chloride (98-107) mmol/L Carbon Dioxide (22-30) mmol/L BUN (7-17) mg/dL Glucose (74-99) mg/dL POC Glucose (mg/dL) (75-99) mg/dL Calcium (8.4-10.2) mg/dL Total Creatine Kinase 265 H (30-135) U/L CK-MB (CK-2) 19.1 H* (0.0-2.4) ng/mL Troponin I 5.460 H* (0.000-0.034) ng/mL Triglycerides (<150) mg/dL HDL Cholesterol (40-60) mg/dL 12/27/17 12/27/17 12/27/17 Range/Units 12:10 13:50 14:21 Lymphocytes # (1.0-4.8) k/uL APTT 42.7 H (22.0-30.0) sec ABG pH 7.26 L (7.35-7.45) ABG pCO2 52 H (35-45) mmHg ABG pO2 (83-108) mmHg ABG HCO3 (21-25) mmol/L ABG Total CO2 25 H (19-24) mmol/L ABG O2 Saturation 97.7 H (94-97) % Chloride (98-107) mmol/L Carbon Dioxide (22-30) mmol/L BUN (7-17) mg/dL Glucose (74-99) mg/dL POC Glucose (mg/dL) 164 H (75-99) mg/dL Calcium (8.4-10.2) mg/dL Total Creatine Kinase (30-135) U/L CK-MB (CK-2) (0.0-2.4) ng/mL Troponin I (0.000-0.034) ng/mL Triglycerides (<150) mg/dL HDL Cholesterol (40-60) mg/dL 12/27/17 12/27/17 12/27/17 Range/Units 17:50 17:50 18:34 Lymphocytes # (1.0-4.8) k/uL APTT (22.0-30.0) sec ABG pH (7.35-7.45) ABG pCO2 (35-45) mmHg ABG pO2 (83-108) mmHg ABG HCO3 (21-25) mmol/L ABG Total CO2 (19-24) mmol/L ABG O2 Saturation (94-97) % Chloride (98-107) mmol/L Carbon Dioxide (22-30) mmol/L BUN (7-17) mg/dL Glucose (74-99) mg/dL POC Glucose (mg/dL) 148 H (75-99) mg/dL Calcium (8.4-10.2) mg/dL Total Creatine Kinase 184 H (30-135) U/L CK-MB (CK-2) 16.4 H* (0.0-2.4) ng/mL Troponin I 2.500 H* (0.000-0.034) ng/mL Triglycerides (<150) mg/dL HDL Cholesterol (40-60) mg/dL 12/27/17 12/27/17 12/28/17 Range/Units 23:00 23:00 00:07 Lymphocytes # (1.0-4.8) k/uL APTT 40.1 H (22.0-30.0) sec ABG pH (7.35-7.45) ABG pCO2 (35-45) mmHg ABG pO2 (83-108) mmHg ABG HCO3 (21-25) mmol/L ABG Total CO2 (19-24) mmol/L ABG O2 Saturation (94-97) % Chloride (98-107) mmol/L Carbon Dioxide (22-30) mmol/L BUN (7-17) mg/dL Glucose (74-99) mg/dL POC Glucose (mg/dL) 176 H (75-99) mg/dL Calcium (8.4-10.2) mg/dL Total Creatine Kinase (30-135) U/L CK-MB (CK-2) 11.3 H* (0.0-2.4) ng/mL Troponin I 1.850 H* (0.000-0.034) ng/mL Triglycerides (<150) mg/dL HDL Cholesterol (40-60) mg/dL 12/28/17 12/28/17 12/28/17 Range/Units 03:45 03:45 06:31 Lymphocytes # 0.7 L (1.0-4.8) k/uL APTT (22.0-30.0) sec ABG pH (7.35-7.45) ABG pCO2 (35-45) mmHg ABG pO2 (83-108) mmHg ABG HCO3 (21-25) mmol/L ABG Total CO2 (19-24) mmol/L ABG O2 Saturation (94-97) % Chloride 108 H (98-107) mmol/L Carbon Dioxide 31 H (22-30) mmol/L BUN 21 H (7-17) mg/dL Glucose 147 H (74-99) mg/dL POC Glucose (mg/dL) 154 H (75-99) mg/dL Calcium 7.3 L (8.4-10.2) mg/dL Total Creatine Kinase (30-135) U/L CK-MB (CK-2) (0.0-2.4) ng/mL Troponin I (0.000-0.034) ng/mL Triglycerides 200 H (<150) mg/dL HDL Cholesterol 16 L (40-60) mg/dL 12/28/17 Range/Units 07:20 Lymphocytes # (1.0-4.8) k/uL APTT 39.9 H (22.0-30.0) sec ABG pH (7.35-7.45) ABG pCO2 (35-45) mmHg ABG pO2 (83-108) mmHg ABG HCO3 (21-25) mmol/L ABG Total CO2 (19-24) mmol/L ABG O2 Saturation (94-97) % Chloride (98-107) mmol/L Carbon Dioxide (22-30) mmol/L BUN (7-17) mg/dL Glucose (74-99) mg/dL POC Glucose (mg/dL) (75-99) mg/dL Calcium (8.4-10.2) mg/dL Total Creatine Kinase (30-135) U/L CK-MB (CK-2) (0.0-2.4) ng/mL Troponin I (0.000-0.034) ng/mL Triglycerides (<150) mg/dL HDL Cholesterol (40-60) mg/dL Microbiology - Last 24 Hours (Table) 12/27/17 11:34 Acid Fast Bacilli Smear - Final Bronchoalviolar Lavage - Left Acid Fast Bacilli Culture - Preliminary 12/26/17 22:51 Blood Culture - Preliminary Blood No Growth after 24 hours 12/27/17 11:34 Gram Stain - Preliminary Bronchoalviolar Lavage - Left Bronchial Washings Culture - Preliminary 12/27/17 11:34 Fungal Culture - Preliminary Bronchoalviolar Lavage - Left 12/27/17 06:58 Urine Culture - Preliminary Urine,Catheterized 12/26/17 23:02 Gram Stain - Preliminary Sputum Sputum Culture - Preliminary Assessment and Plan Assessment: 1. Acute hypoxemic and hypercapnic respiratory failure requiring intubation and mechanical ventilation 2. Pneumonia, maintained on broad-spectrum antibiotic vancomycin and cefepime. Status post bronchoscopy with BAL. Awaiting culture to finalize. 3. Sepsis on presentation secondary to #2 improved 4. Acute COPD exacerbation maintained on IV steroids and bronchodilators 5. Non-ST elevation HI with elevated troponin, managed medically with IV heparin and aspirin. Cardiology following closely. I would add low-dose metoprolol twice daily. Echocardiogram showed preserved ejection fraction with no significant wall motion or vascular 6. History of seizure disorder 7. Hypothyroidism maintained on levothyroxin Today, I reviewed her medication list and lab work results. We will continue current regimen. Appreciate inside sales consultant's recommendations. Continue ICU care. No family members at bedside to be updated about patient's condition.
[2017-12-28] MEDS: LEVOFLOXACIN 750MG-D5W PMX 750 MG in DEXTROSE/WATER 1 150ML.BAG IVPB SCH (09:58)
[2017-12-28] MEDS: FUROSEMIDE 10 MG/ML 4 ML VIAL IV SCH ×2 (09:59→21:43)
[2017-12-28] MEDS: PANTOPRAZOLE 40 MG/10 ML VIAL IV SCH ×2 (09:59→21:42)
[2017-12-28] MEDS: fentaNYL (PF) 2,500 MCG in SODIUM CHLORIDE 0.9% 200 ML IV SCH (10:00)
[2017-12-28] MEDS: ASPIRIN 325 MG TAB PO SCH (10:18)
[2017-12-28] MEDS: CHLORHEXIDINE GLUCONATE 15 ML CUP MUCOUS MEM SCH ×2 (10:18→21:36)
[2017-12-28] MEDS: DEXTROSE 5% IN WATER 1,000 ML with SODIUM BICARB (1 MEQ/ML) 150 ML IV SCH (10:27)
[2017-12-28] MEDS: METOPROLOL TARTRATE 25 MG TAB PO SCH ×2 (10:28→21:43)
[2017-12-28 12:25] LABS: Glucose,Whole Blood 124 mg/dL (75-99)
[2017-12-28 12:30] LABS: ABG Base Excess 8.2 mmol/L; ABG HCO3 33 mmol/L (21-25); ABG Oxygen Saturation 99.1 % (94-97); ABG PCO2 50 mmHg (35-45); ABG PH 7.43 (7.35-7.45); ABG PO2 109 mmHg (83-108); ABG TCO2 34 mmol/L (19-24)
[2017-12-28] MEDS: MORPHINE SULFATE 2 MG/ML SYRINGE IVP PRN ×3 (12:52→23:13)
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
--- NOTE | 2017-12-28 15:37 | PN ---
PROGRESS NOTE This patient was admitted with fever and acute respiratory distress. The chest x-ray was suggestive of pulmonary edema. Etiology of this patient's pulmonary edema is unclear whether there is underlying infectious process. Sputum cultures grows evidence of strep pneumonia. The patient does not have any prior cardiac history. The patient's echocardiogram is completely normal. The IVC was normal not suggestive of any significant elevated pulmonary artery pressure. The patient has responded to the treatment. She has been diuresing and she is extubated. She does have a history of underlying lung disease and COPD. The patient's pCO2 was 52 and CO2 lactic acidosis. The patient's troponin went up to [address]-T changes. This is most likely secondary to supply and demand mismatch. Because of the patient's respiratory distress, hypoxia and hypotension. The patient is comfortable at present. The blood pressure is 120/80 mmHg. Heart S1 and S2 normal. Lungs examination reveals bilateral scattered wheezes. Chest x-ray shows improvement in the bilateral lung infiltrates, bilateral airspace disease. RECOMMENDATIONS: Patient will be continued on the current treatment. After the patient has improved her condition, she will be evaluated with a stress test to rule out underlying any significant cardiac disease. MMODL / IJN: [id number] /
[2017-12-28] MEDS: ACETAMINOPHEN TAB 325 MG TAB PO PRN (17:15)
[2017-12-28] MEDS: ONDANSETRON 4 MG/2 ML VIAL IVP PRN ×2 (17:15→23:13)
[2017-12-28 17:41] LABS: Glucose,Whole Blood 135 mg/dL (75-99)
[2017-12-28] MEDS: LORazepam 2 MG/ML INJ IV PRN (19:53)
[2017-12-28 21:41] LABS: Glucose,Whole Blood 139 mg/dL (75-99)
[2017-12-28] MEDS: ATORVASTATIN 20 MG TAB PO SCH (21:43)
[2017-12-29] LABS: Glucose,Whole Blood 140 mg/dL (75-99)
[2017-12-29] MEDS ORDERED: HEPARIN SODIUM,PORCINE 5,000 UNIT/ML 1 ML VIAL IV STA (00:26)
[2017-12-29] MEDS: methylPREDNISolone SOD SUCCI 125 MG/2 ML VIAL IV SCH ×4 (00:47→22:44)
[2017-12-29] MEDS: CEFEPIME 2 GM in SODIUM CHLORIDE 0.9% 50 ML IVPB SCH ×2 (00:47→13:04)
[2017-12-29] MEDS: ARTIFICIAL TEARS-HYPROMELLOSE DROPS 15 ML BTL BOTH EYES SCH ×4 (00:48→17:29)
[2017-12-29] MEDS: LORazepam 2 MG/ML INJ IV PRN (00:51)
[2017-12-29] MEDS: VANCOMYCIN 1,250 MG in SODIUM CHLORIDE 0.9% 250 ML IVPB SCH ×2 (01:02→16:13)
[2017-12-29 04:48] LABS: Basophils % (A) 0 %; Eosinophils # (A) 0.1 k/uL (0-0.7); Eosinophils % (A) 1 %; HCT 34.4 % (34.0-46.0); HGB 11.4 gm/dL (11.4-16.0); Lymphocytes % (A) 16 %; MCH 30.3 pg (25.0-35.0); MCHC 33.1 g/dL (31.0-37.0); MCV 91.6 fL (80.0-100.0); Mean Platelet Volume 9.4; Monocytes # (A) 0.2 k/uL (0-1.0); Monocytes % (A) 4 %; Neutrophils # (A) 4.7 k/uL (1.3-7.7); Neutrophils % (A) 78 %; Platelet Count 224 k/uL (150-450); RBC 3.75 m/uL (3.80-5.40); RDW 14.1 % (11.5-15.5)
[2017-12-29 05:01] LABS: Calcium 7.7 mg/dL (8.4-10.2); Magnesium 2.5 mg/dL (1.6-2.3); Phosphorus 2.3 mg/dL (2.5-4.5); Potassium 3.3 mmol/L (3.5-5.1)
[2017-12-29] MEDS: MORPHINE SULFATE 2 MG/ML SYRINGE IVP PRN ×4 (05:41→22:44)
[2017-12-29] MEDS: LEVOTHYROXINE 75 MCG TAB PO SCH (05:42)
[2017-12-29] MEDS ORDERED: POTASSIUM PHOSPHATE 10 MMOL in SODIUM CHLORIDE 0.9% 100 ML IV ONE (06:05)
[2017-12-29] MEDS: POTASSIUM BICARBONATE/CIT AC 20 MEQ TABLET.EFF NG-TUBE SCH ×2 (06:39→09:08)
--- NOTE | 2017-12-29 07:49 | XR ---
EXAMINATION TYPE: XR chest 1V portable DATE OF EXAM: 12/29/2017 CLINICAL HISTORY: Difficulty breathing and pneumonia progress study. TECHNIQUE: Single AP portable upright view of the chest is obtained. COMPARISON: Chest x-ray from one day earlier and older studies. CTA chest from 2 days ago. FINDINGS: There is interval extubation with removal of endotracheal and orogastric tubes. There is s table right subclavian central venous catheter. Overlying EKG leads and automotive project engineer device are re demonstrated. Cardiac silhouette size is stable and mildly enlarged with diffuse alveolar and reticul ar opacities bilaterally on background of chronic emphysematous change. No significant pleural effusi on or pneumothorax is present. There is impacted probable acute comminuted fracture deformity through right proximal humerus redemonstrated surgical neck. This has been present in retrospect since outsi de x-ray performed December 26. IMPRESSION: 1. Interval extubation with persistent mild cardiomegaly and diffuse bilateral alveolar and interstit ial edema and/or infiltrates. Consider CHF exacerbation or ARDS. 2. Acute comminuted mildly displaced fracture surgical neck right proximal humerus redemonstrated wit hout significant interval change since admission.
--- NOTE | 2017-12-29 08:28 | P.PN ---
Subjective Progress Note Date: 12/29/17 Principal diagnosis: Shortness of breath Patient is a 47-year-old female with past medical history of COPD, seizure disorder, , and prior MRSA infection. She initially presented to [facility] due to severe respiratory distress. Review of medical records show that the patient had been on BiPAP for the last few days and was worried about being septic and was started on broad-spectrum antibiotics. She was transferred here secondary to need for ICU care. Due to her severe respiratory distress she was intubated in the emergency department and placed on the ventilator. CT of the chest here showed diffuse pulmonary edema but no lobar consolidation. Initial laboratory analysis showed a white blood cell count of 13.8. She was acidotic with pH of 7.21 and her troponin was increasing. She was admitted to ICU. She was started on DuoNeb's, cefepime , Nimbex, heparin drip, propofol, and vancomycin. Her repeat ABG showed worsening of her acidosis with a pH of 7.0. Critical care is following closely. Cardiology was consulted due to elevated troponin. She was started on sodium bicarb drip. She was also given diuresis. She was able to be extubated on the morning of 12/28. She was seen by Dr. Hernández of orthopedic surgery who recommended continued outpatient follow-up of her left wrist fracture. Echocardiogram was performed which showed a normal ejection fraction. Her sputum culture came back as strep pneumonia and Haemophilus. Patient seen and examined at bedside. Still feeling short of breath but improved from yesterday. Having some tightness across the chest and her work of breathing is increased. Tolerating her diet without nausea or vomiting. No bowel movement yesterday. Still feeling weak and tired. Has been to rehab in the past after an ICU stay. Objective - Vital Signs Vital signs: Vital Signs Temp 97.6 F 12/29/17 04:00 Pulse 68 12/29/17 07:00 Resp 26 H 12/29/17 07:00 BP 110/67 12/29/17 07:00 Pulse Ox 90 L 12/29/17 07:00 Intake & Output 12/28/17 12/29/17 12/29/17 18:59 06:59 18:59 Intake Total 6967.938 6135.420 50 Output Total 1162 1290 60 Balance 467.928 -18.580 -10 Weight 75.8 kg Intake: IV 820 860 50 .9 KVO 110 10 Cefepime 1 gm In Sodium 100 Chloride 0.9% 50 ml @ 100 mls/hr IVPB ONCE ONE Rx# :[id number] Cefepime 2 gm In Sodium 50 Chloride 0.9% 50 ml @ 100 mls/hr IVPB Q12H [facility] Rx# :[id number] Dextrose 5% in Water 1, 350 550 50 000 ml @ 50 mls/hr IV . Q23H [facility] with Sodium Bicarb (1 Meq/ml) 150 ml Rx#:[id number] Levofloxacin 750Mg-D5w 0 Pmx 750 mg In Dextrose/ Water 1 150ml.bag @ 100 mls/hr IVPB Q24H [facility] Rx#: [id number] Vancomycin 1,250 mg In 250 250 Sodium Chloride 0.9% 250 ml @ 125 mls/hr IVPB Q12H [facility] Rx#:[id number] fentaNYL (PF) 2,500 mcg 10 In Sodium Chloride 0.9% 200 ml @ 50 MCG/HR 5 mls/ hr IV .Q24H [facility] Rx#: [id number] Intake, IV Titration 429.928 171.420 Amount Heparin Sod,Pork in 0.45% 429.928 171.420 NaCl 25,000 unit In 0.45 % NaCl 1 500ml.bag @ 12 UNITS/KG/HR 16.32 mls/hr IV .Q24H [facility] Rx#: [id number] Oral 240 Tube Feeding 150 Other 230 Output: Urine 1162 1290 60 Other: Voiding Method Indwelling Catheter Indwelling Catheter ABP, PAP, CO, CI - Last Documented Arterial Blood Pressure 130/58 - Exam General: ill appearing, mild distress, appears at stated age Derm: warm, dry Head: atraumatic, normocephalic, symmetric Mouth: no lip lesion, mucous membranes moist Cardiovascular: S1S2 reg, no murmur, positive posterior tibial pulse bilateral, Lungs: course bs b/l , no rhonchi, no rales , no accessory muscle use, + Vent Abdominal: soft, no appreciable organomegaly, no guarding, nontender to palpation Ext: no gross muscle atrophy, trace edema, no contractures Neuro: Cranial nerves II through XII grossly intact, moving all 4 extremities independently, no focal neuro deficits Psych: Awake, alert, appropriate affect - Labs CBC & Chem 7: 12/29/17 04:41 12/29/17 04:41 Labs: Abnormal Lab Results - Last 24 Hours (Table) 12/28/17 12/28/17 12/28/17 Range/Units 03:45 07:20 09:48 RBC (3.80-5.40) m/uL APTT 39.9 H (22.0-30.0) sec ABG pCO2 50 H (35-45) mmHg ABG pO2 109 H (83-108) mmHg ABG HCO3 33 H (21-25) mmol/L ABG Total CO2 34 H (19-24) mmol/L ABG O2 Saturation 99.1 H (94-97) % Potassium (3.5-5.1) mmol/L Carbon Dioxide (22-30) mmol/L BUN (7-17) mg/dL Glucose (74-99) mg/dL POC Glucose (mg/dL) (75-99) mg/dL Calcium (8.4-10.2) mg/dL Phosphorus (2.5-4.5) mg/dL Magnesium (1.6-2.3) mg/dL Procalcitonin 3.85 H (0.02-0.09) ng/mL 12/28/17 12/28/17 12/28/17 Range/Units 12:23 15:30 17:21 RBC (3.80-5.40) m/uL APTT 30.5 H (22.0-30.0) sec ABG pCO2 (35-45) mmHg ABG pO2 (83-108) mmHg ABG HCO3 (21-25) mmol/L ABG Total CO2 (19-24) mmol/L ABG O2 Saturation (94-97) % Potassium (3.5-5.1) mmol/L Carbon Dioxide (22-30) mmol/L BUN (7-17) mg/dL Glucose (74-99) mg/dL POC Glucose (mg/dL) 124 H 135 H (75-99) mg/dL Calcium (8.4-10.2) mg/dL Phosphorus (2.5-4.5) mg/dL Magnesium (1.6-2.3) mg/dL Procalcitonin (0.02-0.09) ng/mL 08/01/0712/28/17 12/29/17 Range/Units 21:39 23:58 04:41 RBC 3.75 L (3.80-5.40) m/uL APTT (22.0-30.0) sec ABG pCO2 (35-45) mmHg ABG pO2 (83-108) mmHg ABG HCO3 (21-25) mmol/L ABG Total CO2 (19-24) mmol/L ABG O2 Saturation (94-97) % Potassium (3.5-5.1) mmol/L Carbon Dioxide (22-30) mmol/L BUN (7-17) mg/dL Glucose (74-99) mg/dL POC Glucose (mg/dL) 139 H 140 H (75-99) mg/dL Calcium (8.4-10.2) mg/dL Phosphorus (2.5-4.5) mg/dL Magnesium (1.6-2.3) mg/dL Procalcitonin (0.02-0.09) ng/mL 12/29/17 12/29/17 Range/Units 04:41 04:41 RBC (3.80-5.40) m/uL APTT 47.4 H (22.0-30.0) sec ABG pCO2 (35-45) mmHg ABG pO2 (83-108) mmHg ABG HCO3 (21-25) mmol/L ABG Total CO2 (19-24) mmol/L ABG O2 Saturation (94-97) % Potassium 3.3 L (3.5-5.1) mmol/L Carbon Dioxide 33 H (22-30) mmol/L BUN 26 H (7-17) mg/dL Glucose 122 H (74-99) mg/dL POC Glucose (mg/dL) (75-99) mg/dL Calcium 7.7 L (8.4-10.2) mg/dL Phosphorus 2.3 L (2.5-4.5) mg/dL Magnesium 2.5 H (1.6-2.3) mg/dL Procalcitonin (0.02-0.09) ng/mL Microbiology - Last 24 Hours (Table) 12/26/17 22:51 Blood Culture - Preliminary Blood No Growth after 48 hours 12/26/17 23:02 Gram Stain - Preliminary Sputum Sputum Culture - Preliminary Streptococcus pneumoniae Haemophilus species 12/27/17 06:58 Urine Culture - Final Urine,Catheterized 12/27/17 11:34 Gram Stain - Preliminary Bronchoalviolar Lavage - Left Bronchial Washings Culture - Preliminary 12/27/17 11:34 Acid Fast Bacilli Smear - Final Bronchoalviolar Lavage - Left Acid Fast Bacilli Culture - Preliminary Assessment and Plan Assessment: Pneumonia, strep pneumonia and Haemophilus with sepsis - cefepime, vanco, and Levaquin - Possible bronch today for sputum - Await sensitivities - blood culture negative to date - IVF resuscitation completed - pulmonary hygeine Acute exacerbation of COPD - solumedrol - bronchodilators - abx as above - pulmonary hygeine - SSI for steroids Hypercapnic/hypoxic respiratory failure - management per critical care -Off the vent -Continue O2 supplementation Non-STEMI possible stress-induced versus stress induced with underlying coronary artery disease - ASA, Lipitor - Cardiology recommendations-inpatient versus outpatient coronary evaluation - echo with preserved ejection fraction -Completed 48 hours on heparin drip will discontinue Hyperchloremic metabolic acidosis, resolved - Stop D5W with bicarb Hypokalemia -Replace and recheck in a.m. Seizure disorder - does not appear to be chronically on medications - monitor for signs of seizure Hypothyroidism - synthroid Resolved: Lactic acidosis DVT prophylaxis: Lovenox Discussed with: Nursing, critical care nurse practitioner Anticipated discharge: 2-[address]: undetermined, consult physical therapy A total of 35 minutes was spent on the care of this complex patient more than 50 % of the time was spent in counseling and care coordination.
[2017-12-29] MEDS: IPRATROPIUM-ALBUTEROL 3 ML NEB INHALATION SCH ×4 (08:36→20:47)
--- NOTE | 2017-12-29 08:56 | P.PN ---
Subjective Progress Note Date: 12/29/17 This is a 47 year-old female who is admitted to the ICU for respiratory distress. Patient is extubated today and alert. Patient received her wrist brace. Patient confirms that her wrist was injured 3 months ago. Patient states that the brace is fitting and feeling well. Patient denies any new symptoms or complaints today. Patient denies any numbness, weakness or tingling. Objective - Vital Signs Vital signs: Vital Signs Temp 97.6 F 12/29/17 04:00 Pulse 72 12/29/17 08:47 Resp 22 12/29/17 08:47 BP 110/67 12/29/17 07:00 Pulse Ox 90 L 12/29/17 07:00 Intake & Output 12/28/17 12/29/17 12/29/17 18:59 06:59 18:59 Intake Total 8864.137 4056.420 50 Output Total 1162 1290 60 Balance 467.928 -18.580 -10 Weight 75.8 kg Intake: IV 820 860 50 .9 KVO 110 10 Cefepime 1 gm In Sodium 100 Chloride 0.9% 50 ml @ 100 mls/hr IVPB ONCE ONE Rx# :[id number] Cefepime 2 gm In Sodium 50 Chloride 0.9% 50 ml @ 100 mls/hr IVPB Q12H [facility] Rx# :[id number] Dextrose 5% in Water 1, 350 550 50 000 ml @ 50 mls/hr IV . Q23H [facility] with Sodium Bicarb (1 Meq/ml) 150 ml Rx#:[id number] Levofloxacin 750Mg-D5w 0 Pmx 750 mg In Dextrose/ Water 1 150ml.bag @ 100 mls/hr IVPB Q24H [facility] Rx#: [id number] Vancomycin 1,250 mg In 250 250 Sodium Chloride 0.9% 250 ml @ 125 mls/hr IVPB Q12H [facility] Rx#:[id number] fentaNYL (PF) 2,500 mcg 10 In Sodium Chloride 0.9% 200 ml @ 50 MCG/HR 5 mls/ hr IV .Q24H [facility] Rx#: [id number] Intake, IV Titration 429.928 171.420 Amount Heparin Sod,Pork in 0.45% 429.928 171.420 NaCl 25,000 unit In 0.45 % NaCl 1 500ml.bag @ 12 UNITS/KG/HR 16.32 mls/hr IV .Q24H [facility] Rx#: [id number] Oral 240 Tube Feeding 150 Other 230 Output: Urine 1162 1290 60 Other: Voiding Method Indwelling Catheter Indwelling Catheter ABP, PAP, CO, CI - Last Documented Arterial Blood Pressure 130/58 - Exam On exam patient is alert and lying comfortably in bed in no acute distress. Brace is intact to the left upper extremity. Patient has full range of motion of the left hand. Sensation intact. Neurovascular status and circulatory status are intact. - Labs CBC & Chem 7: 12/29/17 04:41 12/29/17 04:41 Labs: Abnormal Lab Results - Last 24 Hours (Table) 12/28/17 12/28/17 12/28/17 Range/Units 03:45 07:20 09:48 RBC (3.80-5.40) m/uL APTT 39.9 H (22.0-30.0) sec ABG pCO2 50 H (35-45) mmHg ABG pO2 109 H (83-108) mmHg ABG HCO3 33 H (21-25) mmol/L ABG Total CO2 34 H (19-24) mmol/L ABG O2 Saturation 99.1 H (94-97) % Potassium (3.5-5.1) mmol/L Carbon Dioxide (22-30) mmol/L BUN (7-17) mg/dL Glucose (74-99) mg/dL POC Glucose (mg/dL) (75-99) mg/dL Calcium (8.4-10.2) mg/dL Phosphorus (2.5-4.5) mg/dL Magnesium (1.6-2.3) mg/dL Procalcitonin 3.85 H (0.02-0.09) ng/mL 12/28/17 12/28/17 12/28/17 Range/Units 12:23 15:30 17:21 RBC (3.80-5.40) m/uL APTT 30.5 H (22.0-30.0) sec ABG pCO2 (35-45) mmHg ABG pO2 (83-108) mmHg ABG HCO3 (21-25) mmol/L ABG Total CO2 (19-24) mmol/L ABG O2 Saturation (94-97) % Potassium (3.5-5.1) mmol/L Carbon Dioxide (22-30) mmol/L BUN (7-17) mg/dL Glucose (74-99) mg/dL POC Glucose (mg/dL) 124 H 135 H (75-99) mg/dL Calcium (8.4-10.2) mg/dL Phosphorus (2.5-4.5) mg/dL Magnesium (1.6-2.3) mg/dL Procalcitonin (0.02-0.09) ng/mL 12/28/17 12/28/17 12/29/17 Range/Units 21:39 23:58 04:41 RBC 3.75 L (3.80-5.40) m/uL APTT (22.0-30.0) sec ABG pCO2 (35-45) mmHg ABG pO2 (83-108) mmHg ABG HCO3 (21-25) mmol/L ABG Total CO2 (19-24) mmol/L ABG O2 Saturation (94-97) % Potassium (3.5-5.1) mmol/L Carbon Dioxide (22-30) mmol/L BUN (7-17) mg/dL Glucose (74-99) mg/dL POC Glucose (mg/dL) 139 H 140 H (75-99) mg/dL Calcium (8.4-10.2) mg/dL Phosphorus (2.5-4.5) mg/dL Magnesium (1.6-2.3) mg/dL Procalcitonin (0.02-0.09) ng/mL 12/29/17 12/29/17 Range/Units 04:41 04:41 RBC (3.80-5.40) m/uL APTT 47.4 H (22.0-30.0) sec ABG pCO2 (35-45) mmHg ABG pO2 (83-108) mmHg ABG HCO3 (21-25) mmol/L ABG Total CO2 (19-24) mmol/L ABG O2 Saturation (94-97) % Potassium 3.3 L (3.5-5.1) mmol/L Carbon Dioxide 33 H (22-30) mmol/L BUN 26 H (7-17) mg/dL Glucose 122 H (74-99) mg/dL POC Glucose (mg/dL) (75-99) mg/dL Calcium 7.7 L (8.4-10.2) mg/dL Phosphorus 2.3 L (2.5-4.5) mg/dL Magnesium 2.5 H (1.6-2.3) mg/dL Procalcitonin (0.02-0.09) ng/mL Microbiology - Last 24 Hours (Table) 12/26/17 22:51 Blood Culture - Preliminary Blood No Growth after 48 hours 12/26/17 23:02 Gram Stain - Preliminary Sputum Sputum Culture - Preliminary Streptococcus pneumoniae Haemophilus species 12/27/17 06:58 Urine Culture - Final Urine,Catheterized 12/27/17 11:34 Gram Stain - Preliminary Bronchoalviolar Lavage - Left Bronchial Washings Culture - Preliminary 12/27/17 11:34 Acid Fast Bacilli Smear - Final Bronchoalviolar Lavage - Left Acid Fast Bacilli Culture - Preliminary Assessment and Plan (1) Acute respiratory failure Current Visit: Yes Status: Acute Code(s): J96.00 - ACUTE RESPIRATORY FAILURE , UNSP W HYPOXIA OR HYPERCAPNIA SNOMED Code(s): 20540662 (2) Left wrist fracture Current Visit: Yes Status: Acute Code(s): S62.102A - FRACTURE OF UNSP CARPAL BONE, LEFT WRIST, INIT FOR CLOS FX SNOMED Code(s): 551653099 Plan: 1. X-rays show a left distal radius fracture. According to the patient this injury is 3 months old. The patient is currently following with another orthopedic surgeon for this. 2. Maintain wrist brace except for hygiene. 3. There is no surgical intervention planned. Patient should continue to follow with her orthopedic surgeon.
[2017-12-29] MEDS: DEXTROSE 5% IN WATER 1,000 ML with SODIUM BICARB (1 MEQ/ML) 150 ML IV SCH (09:05)
[2017-12-29] MEDS: ASPIRIN 325 MG TAB PO SCH (09:08)
[2017-12-29] MEDS: METOPROLOL TARTRATE 25 MG TAB PO SCH ×2 (09:09→20:03)
[2017-12-29] MEDS: PANTOPRAZOLE 40 MG/10 ML VIAL IV SCH ×2 (09:09→20:03)
[2017-12-29] MEDS: FUROSEMIDE 10 MG/ML 4 ML VIAL IV SCH (09:09)
[2017-12-29] MEDS: CHLORHEXIDINE GLUCONATE 15 ML CUP MUCOUS MEM SCH (09:19)
[2017-12-29] MEDS: INSULIN ASPART 100 UNIT/ML 1 ML 10 ML VIAL SQ SCH ×4 (10:24→21:26)
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
[2017-12-29] MEDS: LEVOFLOXACIN 750MG-D5W PMX 750 MG in DEXTROSE/WATER 1 150ML.BAG IVPB SCH (10:30)
[2017-12-29 12:25] LABS: Glucose,Whole Blood 119 mg/dL (75-99)
[2017-12-29] MEDS ORDERED: VANCOMYCIN TROUGH DUE 1 EACH MISC MISCELLANE ONE (13:00)
--- NOTE | 2017-12-29 14:01 | PN ---
PROGRESS NOTE Mrs. Holly is a 47-year-old female, who was admitted with acute respiratory failure. Chest x-ray was suggestive of pulmonary edema. It appears that it was a noncardiogenic pulmonary edema. The patient most likely had strep pneumonia and ARDS. Patient's condition is significantly improved. The patient's echocardiogram reveals normal left ventricular systolic function. Heart: First and second heart sounds are normal. Lungs examination is still reveal bilateral coarse rales at the bases. Abdomen is soft. The patient had elevated troponin which is most likely a type 2 myocardial injury secondary to supply and demand mismatch. I would recommend patient to be evaluated with a stress test after she has recovered from her current illness. MMODL / IJN: [id number] /
[2017-12-29 17:27] LABS: Glucose,Whole Blood 98 mg/dL (75-99)
[2017-12-29] MEDS: ATORVASTATIN 20 MG TAB PO SCH (20:03)
[2017-12-29] MEDS: ACETAMINOPHEN TAB 325 MG TAB PO PRN (20:04)
[2017-12-29 20:43] LABS: Glucose,Whole Blood 140 mg/dL (75-99)
[2017-12-29] MEDS: ALPRAZolam 0.5 MG TAB PO PRN (21:26)
[2017-12-30] MEDS: CEFEPIME 2 GM in SODIUM CHLORIDE 0.9% 50 ML IVPB SCH (00:40)
[2017-12-30] MEDS: VANCOMYCIN 1,250 MG in SODIUM CHLORIDE 0.9% 250 ML IVPB SCH (02:44)
[2017-12-30] MEDS: ONDANSETRON 4 MG/2 ML VIAL IVP PRN ×2 (02:44→21:26)
[2017-12-30] MEDS: MORPHINE SULFATE 2 MG/ML SYRINGE IVP PRN ×2 (05:01→11:05)
[2017-12-30 05:53] LABS: Glucose,Whole Blood 108 mg/dL (75-99)
[2017-12-30] MEDS: INSULIN ASPART 100 UNIT/ML 1 ML 10 ML VIAL SQ SCH (06:11)
[2017-12-30] MEDS: LEVOTHYROXINE 75 MCG TAB PO SCH (06:13)
[2017-12-30 06:42] LABS: Basophils % (A) 0 %; Eosinophils # (A) 0.1 k/uL (0-0.7); Eosinophils % (A) 1 %; HGB 12.1 gm/dL (11.4-16.0); Lymphocytes % (A) 16 %; MCH 29.9 pg (25.0-35.0); MCHC 32.7 g/dL (31.0-37.0); MCV 91.6 fL (80.0-100.0); Mean Platelet Volume 9.2; Monocytes # (A) 0.4 k/uL (0-1.0); Monocytes % (A) 6 %; Neutrophils # (A) 4.8 k/uL (1.3-7.7); Neutrophils % (A) 76 %; Platelet Count 246 k/uL (150-450); RBC 4.04 m/uL (3.80-5.40); WBC 6.3 k/uL (3.8-10.6)
[2017-12-30 06:55] LABS: Anion Gap 6 mmol/L; Blood Urea Nitrogen 32 mg/dL (7-17); Calcium 8.3 mg/dL (8.4-10.2); Carbon Dioxide 30 mmol/L (22-30); Chloride 103 mmol/L (98-107); Glucose 100 mg/dL (74-99); Magnesium 2.1 mg/dL (1.6-2.3); Phosphorus 2.7 mg/dL (2.5-4.5); Potassium 4.3 mmol/L (3.5-5.1); Sodium 139 mmol/L (137-145)
--- NOTE | 2017-12-30 08:00 | XR ---
EXAMINATION TYPE: XR chest 1V portable DATE OF EXAM: 12/30/2017 COMPARISON: 12/29/2017 HISTORY: Pneumonia. Progress exam. TECHNIQUE: Single frontal view of the chest is obtained. FINDINGS: Overall there is improved aeration of the lungs with improved aeration of the right midlun g, right lower lobe, and retrocardiac airspace. However there is diffuse interstitial prominence thro ughout and cardiomegaly as well as stable right-sided subclavian approach central venous catheter. No sizable thorax. Osseous structures are grossly intact. IMPRESSION: Improved aeration of the lungs although there remains diffuse interstitial prominence th at may be on the basis of atypical residual pneumonitis or fluid overload.
[2017-12-30] MEDS: IPRATROPIUM-ALBUTEROL 3 ML NEB INHALATION SCH ×4 (08:56→20:03)
[2017-12-30] MEDS: ASPIRIN 325 MG TAB PO SCH (09:25)
[2017-12-30] MEDS: methylPREDNISolone SOD SUCCI 125 MG/2 ML VIAL IV SCH ×2 (09:25→19:54)
[2017-12-30] MEDS: FUROSEMIDE 40 MG TAB PO SCH (09:26)
[2017-12-30] MEDS: METOPROLOL TARTRATE 25 MG TAB PO SCH ×2 (09:26→19:54)
[2017-12-30] MEDS: ENOXAPARIN 40 MG/0.4 ML SYRINGE SQ SCH (09:26)
[2017-12-30] MEDS: LEVOFLOXACIN 750MG-D5W PMX 750 MG in DEXTROSE/WATER 1 150ML.BAG IVPB SCH (09:26)
[2017-12-30] MEDS: PANTOPRAZOLE 40 MG/10 ML VIAL IV SCH (09:26)
--- NOTE | 2017-12-30 09:44 | P.PN ---
Subjective Progress Note Date: 12/30/17 Principal diagnosis: Shortness of breath Patient is a 47-year-old female with past medical history of COPD, seizure disorder, , and prior MRSA infection. She initially presented to [facility] due to severe respiratory distress. Review of medical records show that the patient had been on BiPAP for the last few days and was worried about being septic and was started on broad-spectrum antibiotics. She was transferred here secondary to need for ICU care. Due to her severe respiratory distress she was intubated in the emergency department and placed on the ventilator. CT of the chest here showed diffuse pulmonary edema but no lobar consolidation. Initial laboratory analysis showed a white blood cell count of 13.8. She was acidotic with pH of 7.21 and her troponin was increasing. She was admitted to ICU. She was started on DuoNeb's, cefepime , Nimbex, heparin drip, propofol, and vancomycin. Her repeat ABG showed worsening of her acidosis with a pH of 7.0. Critical care is following closely. Cardiology was consulted due to elevated troponin. She was started on sodium bicarb drip. She was also given diuresis. She was able to be extubated on the morning of 12/28. She was seen by Dr. Hernández of orthopedic surgery who recommended continued outpatient follow-up of her left wrist fracture. Echocardiogram was performed which showed a normal ejection fraction. Her sputum culture came back as strep pneumonia and Haemophilus antibiotics with the escalated to Rocephin once daily. By the morning of 12/30 she was eating well and on 3 L nasal cannula. She was seen by physical therapy and was significantly weak and they recommended subacute rehab on discharge. Patient seen and examined at bedside. Shortness of breath is improved from yesterday. Still having some chest tightness. No nausea or vomiting. Feeling very weak and fatigued. Has not gotten up to a chair. Tolerating her diet. Discussed possibility of subacute rehab with her fractures and significant weak and as she would be in agreement if needed. Will continue to assess her daily. Nursing present at bedside and updated on plan of physical therapy to re-eval today and up to chair. Objective - Vital Signs Vital signs: Vital Signs Temp 97.5 F L 12/30/17 03:48 Pulse 68 12/30/17 09:09 Resp 19 12/30/17 03:52 BP 132/73 12/30/17 03:48 Pulse Ox 92 L 12/30/17 08:58 Intake & Output 12/29/17 12/30/17 12/30/17 18:59 06:59 18:59 Intake Total 1248 240 Output Total 1060 600 Balance 188 -600 240 Weight 70.4 kg Intake: IV 310 .9 KVO 60 Cefepime 2 gm In Sodium 50 Chloride 0.9% 50 ml @ 100 mls/hr IVPB Q12H [facility] Rx# :[id number] Dextrose 5% in Water 1, 50 000 ml @ 50 mls/hr IV . Q23H [facility] with Sodium Bicarb (1 Meq/ml) 150 ml Rx#:[id number] Levofloxacin 750Mg-D5w 150 Pmx 750 mg In Dextrose/ Water 1 150ml.bag @ 100 mls/hr IVPB Q24H [facility] Rx#: [id number] Oral 938 240 Output: Urine 1060 600 Other: Voiding Method Bedpan Bedside Commode # Voids 1 # Bowel Movements 1 ABP, PAP, CO, CI - Last Documented Arterial Blood Pressure 130/58 - Exam General: ill appearing, no distress, appears at stated age Derm: warm, dry Head: atraumatic, normocephalic, symmetric Mouth: no lip lesion, mucous membranes moist Cardiovascular: S1S2 reg, no murmur, positive posterior tibial pulse bilateral, Lungs: course bs b/l , no rhonchi, no rales , no accessory muscle use Abdominal: soft, no appreciable organomegaly, no guarding, nontender to palpation Ext: no gross muscle atrophy, trace edema, no contractures Neuro: Cranial nerves II through XII grossly intact, moving all 4 extremities independently, no focal neuro deficits Psych: Awake, alert, appropriate affect - Labs CBC & Chem 7: 12/30/17 05:52 12/30/17 05:52 Labs: Abnormal Lab Results - Last 24 Hours (Table) 12/29/17 12/29/17 12/30/17 Range/Units 12:23 20:42 05:51 BUN (7-17) mg/dL Glucose (74-99) mg/dL POC Glucose (mg/dL) 119 H 140 H 108 H (75-99) mg/dL Calcium (8.4-10.2) mg/dL 12/30/17 Range/Units 05:52 BUN 32 H (7-17) mg/dL Glucose 100 H (74-99) mg/dL POC Glucose (mg/dL) (75-99) mg/dL Calcium 8.3 L (8.4-10.2) mg/dL Microbiology - Last 24 Hours (Table) 12/26/17 23:02 Gram Stain - Final Sputum Sputum Culture - Final Streptococcus pneumoniae Haemophilus influenzae 12/26/17 22:51 Blood Culture - Preliminary Blood No Growth after 72 hours 12/27/17 11:34 Gram Stain - Final Bronchoalviolar Lavage - Left Bronchial Washings Culture - Final Assessment and Plan Assessment: Pneumonia, strep pneumonia and Haemophilus with sepsis -Transition patient to Rocephin and plan for 7 days of IV antibiotic therapy and is currently day 3 of 7 - Bronchodilators - blood culture negative to date - IVF resuscitation completed - pulmonary hygeine Acute exacerbation of COPD - solumedrol decreased to twice a day - bronchodilators - abx as above - pulmonary hygeine - Discontinue SSI for steroids as all blood sugars have been within normal range Hypercapnic/hypoxic respiratory failure - management per critical care -Off the vent -Continue O2 supplementation Non-STEMI possible stress-induced versus stress induced with underlying coronary artery disease - ASA, Lipitor - Cardiology recommendations- outpatient coronary evaluation with stress test - echo with preserved ejection fraction -Completed 48 hours on heparin drip Seizure disorder - does not appear to be chronically on medications - monitor for signs of seizure Hypothyroidism - synthroid Multiple sclerosis - continue outpatient follow-up Left distal radial fracture - ortho recs appreciated - Continue outpatient F/U Resolved: Lactic acidosis Hyperchloremic metabolic acidosis, resolved Hypokalemia, resolved ARDS DVT prophylaxis: Lovenox Discussed with: Nursing, Patient Anticipated discharge: 2-[address]: SNF A total of 35 minutes was spent on the care of this complex patient more than 50 % of the time was spent in counseling and care coordination.
[2017-12-30] MEDS: cefTRIAXone IN SWFI 2,000 MG/20 ML SYRINGE IVP SCH (11:05)
[2017-12-30 11:40] LABS: Glucose,Whole Blood 142 mg/dL (75-99)
[2017-12-30 13:32] VITALS: BMI 27.5
[2017-12-30] MEDS: ALPRAZolam 0.5 MG TAB PO PRN (15:01)
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
[2017-12-30 16:25] LABS: Glucose,Whole Blood 112 mg/dL (75-99)
[2017-12-30] MEDS: PANTOPRAZOLE 40 MG TABLET PO SCH (18:02)
[2017-12-30] MEDS: HYDROcodone/APAP 5-325MG 1 EACH TAB PO PRN (18:07)
[2017-12-30] MEDS: ATORVASTATIN 20 MG TAB PO SCH (19:54)
[2017-12-30 20:41] LABS: Glucose,Whole Blood 124 mg/dL (75-99)
[2017-12-31] MEDS: HYDROcodone/APAP 5-325MG 1 EACH TAB PO PRN ×4 (00:18→20:47)
[2017-12-31] MEDS: ALPRAZolam 0.5 MG TAB PO PRN ×2 (02:50→16:17)
[2017-12-31 06:22] LABS: Basophils % (A) 0 %; Eosinophils # (A) 0.1 k/uL (0-0.7); Eosinophils % (A) 1 %; HGB 12.6 gm/dL (11.4-16.0); Lymphocytes # (A) 1.7 k/uL (1.0-4.8); Lymphocytes % (A) 19 %; MCH 30.3 pg (25.0-35.0); MCHC 33.3 g/dL (31.0-37.0); MCV 91.2 fL (80.0-100.0); Mean Platelet Volume 8.6; Monocytes # (A) 0.5 k/uL (0-1.0); Monocytes % (A) 5 %; Neutrophils # (A) 6.9 k/uL (1.3-7.7); Neutrophils % (A) 74 %; Platelet Count 366 k/uL (150-450); RBC 4.16 m/uL (3.80-5.40); RDW 13.9 % (11.5-15.5); WBC 9.4 k/uL (3.8-10.6)
[2017-12-31 06:28] LABS: Glucose,Whole Blood 122 mg/dL (75-99)
[2017-12-31 06:40] LABS: Anion Gap 5 mmol/L; Blood Urea Nitrogen 33 mg/dL (7-17); Calcium 8.7 mg/dL (8.4-10.2); Carbon Dioxide 29 mmol/L (22-30); Chloride 104 mmol/L (98-107); Glucose 120 mg/dL (74-99); Potassium 3.6 mmol/L (3.5-5.1); Sodium 138 mmol/L (137-145)
[2017-12-31] MEDS: LEVOTHYROXINE 75 MCG TAB PO SCH (06:49)
[2017-12-31] MEDS: PANTOPRAZOLE 40 MG TABLET PO SCH ×2 (06:49→17:02)
[2017-12-31] MEDS: FUROSEMIDE 40 MG TAB PO SCH (07:49)
[2017-12-31] MEDS: METOPROLOL TARTRATE 25 MG TAB PO SCH ×2 (07:49→20:46)
[2017-12-31] MEDS: cefTRIAXone IN SWFI 2,000 MG/20 ML SYRINGE IVP SCH (07:49)
[2017-12-31] MEDS: methylPREDNISolone SOD SUCCI 125 MG/2 ML VIAL IV SCH (07:49)
[2017-12-31] MEDS: ENOXAPARIN 40 MG/0.4 ML SYRINGE SQ SCH (07:49)
[2017-12-31] MEDS: ASPIRIN 325 MG TAB PO SCH (07:49)
[2017-12-31] MEDS: IPRATROPIUM-ALBUTEROL 3 ML NEB INHALATION SCH ×4 (08:42→19:51)
--- NOTE | 2017-12-31 10:13 | XR ---
EXAMINATION TYPE: XR chest 1V portable DATE OF EXAM: 12/31/2017 HISTORY: Pneumonia . REFERENCE: Previous study dated 12/30/2017. FINDINGS: Interstitial changes throughout the lungs have continued to improve. There is no focal cons olidation. Heart size upper limits of normal. Pleural spaces are clear. There is a right subclavian catheter in place, unchanged in appearance. IMPRESSION: IMPROVED AERATION, BOTH LUNGS.
--- NOTE | 2017-12-31 10:48 | P.PN ---
Subjective Progress Note Date: 12/31/17 Principal diagnosis: Shortness of breath Patient is a 47-year-old female with past medical history of COPD, seizure disorder, , and prior MRSA infection. She initially presented to [facility] due to severe respiratory distress. Review of medical records show that the patient had been on BiPAP for the last few days and was worried about being septic and was started on broad-spectrum antibiotics. She was transferred here secondary to need for ICU care. Due to her severe respiratory distress she was intubated in the emergency department and placed on the ventilator. CT of the chest here showed diffuse pulmonary edema but no lobar consolidation. Initial laboratory analysis showed a white blood cell count of 13.8. She was acidotic with pH of 7.21 and her troponin was increasing. She was admitted to ICU. She was started on DuoNeb's, cefepime , Nimbex, heparin drip, propofol, and vancomycin. Her repeat ABG showed worsening of her acidosis with a pH of 7.0. Critical care is following closely. Cardiology was consulted due to elevated troponin. She was started on sodium bicarb drip. She was also given diuresis. She was able to be extubated on the morning of 12/28. She was seen by Dr. Hernández of orthopedic surgery who recommended continued outpatient follow-up of her left wrist fracture. Echocardiogram was performed which showed a normal ejection fraction. Her sputum culture came back as strep pneumonia and Haemophilus antibiotics with the escalated to Rocephin once daily. By the morning of 12/30 she was eating well and on 3 L nasal cannula. She was seen by physical therapy and was significantly weak and they recommended subacute rehab on discharge. Her antibiotics were de-escalated to Rocephin. Her weakness greatly improved and she was able to ambulate in the hallways. She continued to struggle some shortness of breath. Her appetite began to return. Patient seen and examined at bedside. Complains of rib pain with deep inspiration. States breathing is much better than yesterday. No nausea or vomiting. Appetite is returning. No diarrhea. Having normal bowel movements daily. Objective - Vital Signs Vital signs: Vital Signs Temp 97.1 F L 12/31/17 08:00 Pulse 60 12/31/17 08:51 Resp 18 12/31/17 08:00 BP 118/67 12/31/17 08:00 Pulse Ox 100 12/31/17 08:00 Intake & Output 12/30/17 12/31/17 12/31/17 18:59 06:59 18:59 Intake Total 240 500 180 Output Total 600 200 Balance -360 300 180 Weight 70.4 kg 69.6 kg Intake: Oral 240 500 180 Output: Urine 600 200 Other: Voiding Method Bedside Commode Bedside Commode # Voids 3 1 ABP, PAP, CO, CI - Last Documented Arterial Blood Pressure 130/58 - Exam General: Nontoxic, no distress, appears at stated age Derm: warm, dry Head: atraumatic, normocephalic, symmetric Mouth: no lip lesion, mucous membranes moist Cardiovascular: S1S2 reg, no murmur, positive posterior tibial pulse bilateral, Lungs: course bs b/l , no rhonchi, no rales , no accessory muscle use Abdominal: soft, no appreciable organomegaly, no guarding, nontender to palpation Ext: no gross muscle atrophy, trace edema, no contractures Neuro: Cranial nerves II through XII grossly intact, moving all 4 extremities independently, no focal neuro deficits Psych: Awake, alert, appropriate affect - Labs CBC & Chem 7: 12/31/17 06:04 12/31/17 06:04 Labs: Abnormal Lab Results - Last 24 Hours (Table) 12/30/17 12/30/17 12/30/17 Range/Units 11:30 16:23 20:39 BUN (7-17) mg/dL Glucose (74-99) mg/dL POC Glucose (mg/dL) 142 H 112 H 124 H (75-99) mg/dL 12/31/17 12/31/17 Range/Units 06:04 06:26 BUN 33 H (7-17) mg/dL Glucose 120 H (74-99) mg/dL POC Glucose (mg/dL) 122 H (75-99) mg/dL Microbiology - Last 24 Hours (Table) 12/26/17 22:51 Blood Culture - Preliminary Blood No Growth after 96 hours 12/26/17 23:02 Gram Stain - Final Sputum Sputum Culture - Final Streptococcus pneumoniae Haemophilus influenzae Assessment and Plan Assessment: Pneumonia, strep pneumonia and Haemophilus with sepsis - Transition patient to Rocephin and plan for 7 days of IV antibiotic therapy and is currently day 4 of 7 - Bronchodilators - blood culture negative to date - IVF resuscitation completed - pulmonary hygeine Acute exacerbation of COPD - solumedrol transitioned to prednisone - bronchodilators - abx as above - pulmonary hygeine Non-STEMI possible stress-induced versus stress induced with underlying coronary artery disease - ASA, Lipitor - Cardiology recommendations- outpatient coronary evaluation with stress test - echo with preserved ejection fraction - Completed 48 hours on heparin drip Seizure disorder - does not appear to be chronically on medications - monitor for signs of seizure Hypothyroidism - synthroid Multiple sclerosis - continue outpatient follow-up Left distal radial fracture - ortho recs appreciated - Continue outpatient F/U Resolved: Lactic acidosis Hyperchloremic metabolic acidosis, resolved Hypokalemia, resolved ARDS Hypercapnic/hypoxic respiratory failure, resolved DVT prophylaxis: Lovenox Discussed with: Nursing, Patient Anticipated discharge: 24- [address]: Likely home A total of 35 minutes was spent on the care of this complex patient more than 50 % of the time was spent in counseling and care coordination.
[2017-12-31] MEDS: predniSONE 20 MG TAB PO SCH (11:10)
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
[2017-12-31 12:01] LABS: Glucose,Whole Blood 139 mg/dL (75-99)
[2017-12-31] MEDS ORDERED: KETOROLAC 30 MG/ML 1 ML VIAL IVP PRN (15:46)
[2017-12-31] MEDS: ACETAMINOPHEN TAB 325 MG TAB PO PRN (16:16)
[2017-12-31] MEDS: ATORVASTATIN 20 MG TAB PO SCH (20:37)
[2018-01-01] MEDS: ALPRAZolam 0.5 MG TAB PO PRN (01:06)
[2018-01-01] MEDS: ACETAMINOPHEN TAB 325 MG TAB PO PRN ×3 (01:09→15:45)
[2018-01-01] MEDS: HYDROcodone/APAP 5-325MG 1 EACH TAB PO PRN ×3 (06:24→21:11)
[2018-01-01] MEDS: LEVOTHYROXINE 75 MCG TAB PO SCH (06:26)
[2018-01-01] MEDS: cefTRIAXone IN SWFI 2,000 MG/20 ML SYRINGE IVP SCH (07:26)
[2018-01-01] MEDS: ASPIRIN 81 MG PO SCH (07:27)
[2018-01-01] MEDS: ENOXAPARIN 40 MG/0.4 ML SYRINGE SQ SCH (07:27)
[2018-01-01] MEDS: predniSONE 20 MG TAB PO SCH (07:27)
[2018-01-01] MEDS: PANTOPRAZOLE 40 MG TABLET PO SCH ×2 (07:27→16:54)
[2018-01-01] MEDS: FUROSEMIDE 40 MG TAB PO SCH (07:27)
[2018-01-01] MEDS: METOPROLOL TARTRATE 25 MG TAB PO SCH ×2 (07:29→21:12)
[2018-01-01] MEDS: IPRATROPIUM-ALBUTEROL 3 ML NEB INHALATION SCH ×4 (07:39→19:52)
[2018-01-01 07:48] LABS: Basophils % (A) 0 %; Eosinophils # (A) 0.2 k/uL (0-0.7); Eosinophils % (A) 2 %; HCT 41.7 % (34.0-46.0); HGB 13.8 gm/dL (11.4-16.0); Lymphocytes # (A) 3.7 k/uL (1.0-4.8); Lymphocytes % (A) 35 %; MCV 90.8 fL (80.0-100.0); Mean Platelet Volume 8.3; Monocytes # (A) 0.5 k/uL (0-1.0); Monocytes % (A) 5 %; Neutrophils % (A) 57 %; Platelet Count 428 k/uL (150-450); WBC 10.6 k/uL (3.8-10.6)
[2018-01-01 08:12] LABS: Anion Gap 6 mmol/L; Blood Urea Nitrogen 36 mg/dL (7-17); Calcium 8.3 mg/dL (8.4-10.2); Carbon Dioxide 30 mmol/L (22-30); Chloride 103 mmol/L (98-107); Glucose 89 mg/dL (74-99); Potassium 3.6 mmol/L (3.5-5.1); Sodium 139 mmol/L (137-145)
[2018-01-01 08:16] VITALS: RESP 16
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
[2018-01-01] MEDS: GABAPENTIN 300 MG CAP PO SCH ×2 (16:54→21:12)
--- NOTE | 2018-01-01 19:58 | P.PN ---
Subjective Progress Note Date: 01/01/18 Principal diagnosis: Shortness of breath Patient is a 47-year-old female with past medical history of COPD, seizure disorder, , and prior MRSA infection. She initially presented to [facility] due to severe respiratory distress. Review of medical records show that the patient had been on BiPAP for the last few days and was worried about being septic and was started on broad-spectrum antibiotics. She was transferred here secondary to need for ICU care. Due to her severe respiratory distress she was intubated in the emergency department and placed on the ventilator. CT of the chest here showed diffuse pulmonary edema but no lobar consolidation. Initial laboratory analysis showed a white blood cell count of 13.8. She was acidotic with pH of 7.21 and her troponin was increasing. She was admitted to ICU. She was started on DuoNeb's, cefepime , Nimbex, heparin drip, propofol, and vancomycin. Her repeat ABG showed worsening of her acidosis with a pH of 7.0. Critical care is following closely. Cardiology was consulted due to elevated troponin. She was started on sodium bicarb drip. She was also given diuresis. She was able to be extubated on the morning of 12/28. She was seen by Dr. Hernández of orthopedic surgery who recommended continued outpatient follow-up of her left wrist fracture. Echocardiogram was performed which showed a normal ejection fraction. Her sputum culture came back as strep pneumonia and Haemophilus antibiotics with the escalated to Rocephin once daily. By the morning of 12/30 she was eating well and on 3 L nasal cannula. She was seen by physical therapy and was significantly weak and they recommended subacute rehab on discharge. Her antibiotics were de-escalated to Rocephin. Her weakness greatly improved and she was able to ambulate in the hallways. She continued to struggle some shortness of breath. Her appetite began to return. She was able to get to the bathroom without difficulty. She was improving significantly daily. Patient seen and examined at bedside. Questioning why she was taken off her gabapentin, Fioricet, and states she was on Klonopin at home. Informed patient that she cannot take both Fioricet and Milroy as she has been taking. Also informed her that we hold gabapentin she was getting sedation and that we have no record that she was on Klonopin. Told patient we resumed Klonopin and gabapentin today but we will continue Milroy and not Fioricet. She states her breathing is getting better, appetite returned, feeling stronger every day, having normal bowel movements. We discussed plan for discharge home with home health in a.m. Objective - Vital Signs Vital signs: Vital Signs Temp 98.7 F 01/01/18 14:31 Pulse 60 01/01/18 15:51 Resp 16 01/01/18 14:31 BP 85/51 01/01/18 14:31 Pulse Ox 96 01/01/18 14:31 Intake & Output 01/01/18 01/01/18 01/02/18 06:59 18:59 06:59 Intake Total 300 200 Balance 300 200 Intake: Oral 300 200 Other: Voiding Method Bedside Commode Toilet # Voids 1 3 ABP, PAP, CO, CI - Last Documented Arterial Blood Pressure 130/58 - Exam General: Nontoxic, no distress, appears at stated age Derm: warm, dry Head: atraumatic, normocephalic, symmetric Mouth: no lip lesion, mucous membranes moist Cardiovascular: S1S2 reg, no murmur, positive posterior tibial pulse bilateral, Lungs: Decreased breath sounds bilateral bases, no rhonchi, no rales , no accessory muscle use Abdominal: soft, no appreciable organomegaly, no guarding, nontender to palpation Ext: no gross muscle atrophy, trace edema, no contractures Neuro: Cranial nerves II through XII grossly intact, moving all 4 extremities independently, no focal neuro deficits Psych: Awake, alert, appears anxious - Labs CBC & Chem 7: 01/01/18 07:08 01/01/18 07:08 Labs: Abnormal Lab Results - Last 24 Hours (Table) 01/01/18 Range/Units 07:08 BUN 36 H (7-17) mg/dL Calcium 8.3 L (8.4-10.2) mg/dL Microbiology - Last 24 Hours (Table) 12/26/17 22:51 Blood Culture - Preliminary Blood No Growth after 120 hours Assessment and Plan Assessment: Pneumonia, strep pneumonia and Haemophilus with sepsis - Transition patient to Rocephin and plan for 7 days of IV antibiotic therapy and is currently day 5 of 7 we'll transition to 2 more days of Vantin on discharge - Bronchodilators - blood culture negative - IVF resuscitation completed - pulmonary hygeine Acute exacerbation of COPD -Prednisone 3 additional days and then discontinue - bronchodilators - abx as above - pulmonary hygeine Non-STEMI possible stress-induced versus stress induced with underlying coronary artery disease - ASA, Lipitor - Cardiology recommendations- outpatient coronary evaluation with stress test - echo with preserved ejection fraction - Completed 48 hours on heparin drip Seizure disorder - does not appear to be chronically on medications - monitor for signs of seizure Hypothyroidism - synthroid Multiple sclerosis - continue outpatient follow-up -Resume home gabapentin Left distal radial fracture - ortho recs appreciated - Continue outpatient F/U Resolved: Lactic acidosis Hyperchloremic metabolic acidosis, resolved Hypokalemia, resolved ARDS Hypercapnic/hypoxic respiratory failure, resolved Delayed charting patient seen at approximately 11 AM. Discharge medication reconciliation completed. Will need opiate start talking form completed on . DVT prophylaxis: Lovenox Discussed with: Nursing, Patient Anticipated discharge: Anticipate discharge home in a.m. with home health. Anticipated discharge place: Likely home with home health A total of 35 minutes was spent on the care of this complex patient more than 50 % of the time was spent in counseling and care coordination.
[2018-01-01] MEDS: ATORVASTATIN 20 MG TAB PO SCH (21:11)
[2018-01-01] MEDS: DULoxetine HCL 30 MG CAPSULE.DR PO SCH (21:11)
[2018-01-01] MEDS: clonazePAM 0.5 MG TAB PO SCH (21:11)
[2018-01-02] MEDS: HYDROcodone/APAP 5-325MG 1 EACH TAB PO PRN ×2 (06:27→14:22)
[2018-01-02] MEDS: LEVOTHYROXINE 75 MCG TAB PO SCH (06:27)
[2018-01-02] MEDS: predniSONE 20 MG TAB PO SCH (08:03)
[2018-01-02] MEDS: METOPROLOL TARTRATE 25 MG TAB PO SCH (08:03)
[2018-01-02] MEDS: DULoxetine HCL 30 MG CAPSULE.DR PO SCH (08:03)
[2018-01-02] MEDS: ENOXAPARIN 40 MG/0.4 ML SYRINGE SQ SCH (08:04)
[2018-01-02] MEDS: PANTOPRAZOLE 40 MG TABLET PO SCH ×2 (08:04→16:42)
[2018-01-02] MEDS: FUROSEMIDE 40 MG TAB PO SCH (08:04)
[2018-01-02] MEDS: clonazePAM 0.5 MG TAB PO SCH (08:04)
[2018-01-02] MEDS: ASPIRIN 81 MG PO SCH (08:04)
[2018-01-02] MEDS: GABAPENTIN 300 MG CAP PO SCH ×2 (08:04→16:42)
[2018-01-02] MEDS: cefTRIAXone IN SWFI 2,000 MG/20 ML SYRINGE IVP SCH (08:05)
[2018-01-02] MEDS: IPRATROPIUM-ALBUTEROL 3 ML NEB INHALATION SCH ×3 (08:10→15:25)
--- NOTE | 2018-01-02 11:16 | P.PN ---
Subjective Progress Note Date: 01/02/18 Principal diagnosis: Pneumonia Progress note dated 01/02/2018 A 47-year-old female with a history of acute hypoxemic hypercapnic respiratory failure secondary to acute respiratory distress syndrome. She had Streptococcus pneumoniae identified. She is currently on IV Rocephin. She is doing very well. Her oxygen has been weaned off. She is not coughing up any phlegm. She is hoping to be able to be discharged in the near future. In addition, she has a history of acute sepsis secondary to Streptococcus pneumoniae, severe metabolic and respiratory acidosis COPD elevated troponins of seizure disorder hypothyroidism question history of MS. Again the patient is doing much better today than in previous days. She was seen by my partner yesterday. She is a full code. Again she is hoping to be discharged home. Objective - Vital Signs Vital signs: Vital Signs Temp 99.0 F 01/02/18 07:00 Pulse 70 01/02/18 08:25 Resp 16 01/02/18 07:00 BP 106/52 01/02/18 07:00 Pulse Ox 93 L 01/02/18 07:00 Intake & Output 01/01/18 01/02/18 01/02/18 18:59 06:59 18:59 Intake Total 200 240 200 Balance 200 240 200 Intake: Oral 200 240 200 Other: Voiding Method Toilet Toilet # Voids 3 1 ABP, PAP, CO, CI - Last Documented Arterial Blood Pressure 130/58 - Exam No acute distress, oriented 3. Not requiring any supplemental oxygen. HEENT examination is grossly unremarkable. Mucous membranes are moist. No oral lesions. Neck supple. Full range of motion. No adenopathy thyromegaly or neck vein distention. Cardiovascular examination reveals regular rhythm rate. S1-S2 normal. No S3 or S4. No discernible murmur noted. Lungs reveal mostly clear breath sounds. A few scattered rhonchi. No wheezes or crackles. Breath sounds equal bilaterally. Abdomen soft bowel sounds are heard. No masses or tenderness. Extremities are intact. No cyanosis clubbing or edema. Skin is without rash or lesion. Neurologic examination is brief but nonfocal. - Labs CBC & Chem 7: 01/01/18 07:08 01/01/18 07:08 Labs: Microbiology - Last 24 Hours (Table) 12/26/17 22:51 Blood Culture - Final Blood No Growth after 144 hours Assessment and Plan Assessment: Assessment Acute hypoxemic and hypercapnic respiratory failure secondary to acute respiratory distress syndrome, caused by Streptococcus pneumoniae. Acute sepsis secondary to strep pneumoniae ARDS, recovered, was significant chest x-ray improvement Severe metabolic and respiratory acidosis COPD exacerbation, much improved Elevated troponin History of seizure disorder Hypothyroidism Questional history of multiple sclerosis Left distal radius fracture, old Plan: Plan dated 01/02/2018 The patient could be transitioned to oral antibiotics. The patient is potentially ready for discharge. X-ray show significant improvement. Labs and medications are reviewed. Additional recommendations and suggestions are forthcoming. Time with Patient: Less than 30
[2018-01-02] MEDS ORDERED: LEVOFLOXACIN 500 MG TAB PO SCH (11:30)
[2018-01-02 14:45] VITALS: BP 102/63; TEMP 97.5
--- NOTE | 2018-01-02 14:50 | P.DS ---
Providers Date of admission: 12/27/17 00:20 Attending physician: Gale Rees MD Consults: 12/27/17 00:22 Consult Physician Stat Consulting Provider: Andrei Silva Consult Reason/Comments: critical care Do you want consulting provider notified?: Yes Consult Physician Urgent Consulting Provider: Alfa Puente Consult Reason/Comments: Cardiac evaluation Do you want consulting provider notified?: Yes Primary care physician: Rickey Desai - Discharge Diagnosis(es) (1) Septic shock This is due to severe pneumonia. Patient was admitted to intensive care unit She was intubated and mechanically ventilated Usual sepsis measure bundle was started and she responded well to this measures Current Visit: Yes Status: Acute (2) Pneumonia Sputum culture positive for penicillin sensitive pneumococcus and Haemophilus influenza Patient was initially started on broad-spectrum antibiotic Subsequently she was transitioned to levofloxacin Patient was followed by pulmonary service and she is instructed to finish the course of levofloxacin home. Current Visit: Yes Status: Acute (3) Acute respiratory failure This is acute hypoxic respiratory failure due to ARDS due to pneumonia Echo showed normal ejection fraction Patient was treated with antibiotics intubation and ventilatory support and gentle diuresis Current Visit: Yes Status: Acute Hospital Course: This is a 47-year-old female with history of COPD, smoking and questionable history of MS and seizures who was transferred from [facility] here due to respiratory distress and patient was intubated and regular distant transferred here for critical care management. Initially she was kept on BiPAP with due to severe respiratory distress she had to be intubated and mechanically ventilated. In the emergency department she underwent CT and of the chest that didn't show any pulmonary embolism showed pulmonary edema. Patient was admitted to intensive care unit. Patient had bilateral edema. Echo was normal EF. It was in the patient is not in ARDS due to pneumonia. Sputum grew pneumococcus and Haemophilus influenza she was treated with appropriate antibiotics. Patient was subsequently extubated transferred to the floor. To oral antibiotics. On date of discharge I saw and evaluated the patient. She was up sitting in the chair. She did not have any shortness of breath, cough, expectoration, chest pain nausea vomiting. She was tolerating oral intake adequately. She was not febrile. She was tolerating oral antibiotics. She was off of oxygen. She was able to ambulate without any significant help or support and she did not require any supplemental oxygen. REVIEW OF SYSTEMS: CONSTITUTIONAL: She denies any recent weight changes, fevers or night sweats. DERMATOLOGIC: She denies any rashes. HEENT: Eyes: She has had no changes in her vision. No eye pain. No discharge. ENT: She had no hearing changes, no throat pain, no sinus difficulties. No hoarseness. CARDIOVASCULAR: She denies any chest pain or abnormal heart beats, or any swelling in her ankles or feet. RESPIRATORY: No wheezing or coughing. GASTROINTESTINAL: As noted above in history of present illness. GENITOURINARY: She denies any urinary urgency, frequency or burning, and there has been no blood in her urine. She has no flank pain. She has also had no vaginal discharge or bleeding. MUSCULOSKELETAL: She notes full range of motion of all her joints without pain or swelling. ENDOCRINE: She denies any heat or cold intolerance or excessive thirst or urination. NEUROLOGICAL: Currently, no headache. She has no vision changes, or fainting. No numbness or tingling. PSYCHIATRIC: As noted above in past medical history. Physical examination Vital signs reviewed stable she's been afebrile no tachycardia and hypotension Head and neck examination, automatic normocephalic anicteric sclerae clear conjunctivae or oral pharyngeal mucosa is clear of any lesions and moist Lungs: Clear to auscultation no wheezing no rhonchi and no crackles Cardiovascular regular rhythm and rate S1-S2 no murmurs rubs or gallops Abdomen soft nontender nondistended Extremities without any peripheral edema Plan see my discharge plan patient will be discharged home to finish the course of antibiotics and prednisone. She is to use nebulizer when necessary. All aspect of discharge and support discussed with the patient. She is encouraged to stop smoking she will be provided with a home healthcare services Pertinent Studies: CT of the chest on admission showed no pulmonary embolism and showed bilateral pulmonary edema On admission patient elevated troponin that did not show tender further evaluation. Patient had 3 months old left displaced radial fracture for which she was about to burst with a surgery no intervention recommended. Blood cultures and urine cultures stay negative Sputum culture grew strep pneumoniae that was penicillin sensitive and Haemophilus influence Procedures: None Patient Condition at Discharge: Fair Plan - Discharge Summary Discharge Rx Participant: No New Discharge Prescriptions: New Albuterol Inhaler [Ventolin Hfa Inhaler] 1 - 2 puff INHALATION RT-Q6H PRN #1 inhaler PRN Reason: Shortness Of Breath Or Wheezing Aspirin 81 mg PO DAILY #30 chew Cefpodoxime Proxetil [Vantin] 200 mg PO Q12HR #4 tab HYDROcodone/APAP 5-325MG [[place] 5-325] 1 each PO Q6HR PRN 7 Days #28 tab PRN Reason: MODERATE Pain Metoprolol Tartrate [Lopressor] 25 mg PO BID #60 tab predniSONE 60 mg PO DAILY #9 tab Continue Simvastatin [Zocor] 40 mg PO HS Levothyroxine Sodium [Synthroid] 150 mcg PO DAILY DULoxetine HCL [Cymbalta] 30 mg PO BID Omeprazole [PriLOSEC] 20 mg PO AC-BID Ibuprofen [Motrin] 800 mg PO TID Gabapentin [Neurontin] 300 mg PO TID Budesonide-Formot 160-4.5 Mcg [Symbicort 160-4.5 Mcg Inhaler] 2 puff INHALATION RT-BID Discontinued Amitriptyline HCl [Elavil] 25 mg PO BID traZODone HCL 50 mg PO TID Butalb/Acetaminophen/Caffeine [Fioricet 50-325-40] 1 tab PO Q8H PRN PRN Reason: Headache Discharge Medication List DULoxetine HCL [Cymbalta] 30 mg PO BID 01/27/17 [History] Levothyroxine Sodium [Synthroid] 150 mcg PO DAILY 01/27/17 [History] Simvastatin [Zocor] 40 mg PO HS 01/27/17 [History] Budesonide-Formot 160-4.5 Mcg [Symbicort 160-4.5 Mcg Inhaler] 2 puff INHALATION RT-BID 12/27/17 [History] Gabapentin [Neurontin] 300 mg PO TID 12/27/17 [History] Ibuprofen [Motrin] 800 mg PO TID 12/27/17 [History] Omeprazole [PriLOSEC] 20 mg PO AC-BID 12/27/17 [History] Albuterol Inhaler [Ventolin Hfa Inhaler] 1 - 2 puff INHALATION RT-Q6H PRN #1 inhaler 01/01/18 [Rx] Aspirin 81 mg PO DAILY #30 chew 01/01/18 [Rx] Cefpodoxime Proxetil [Vantin] 200 mg PO Q12HR #4 tab 01/01/18 [Rx] HYDROcodone/APAP 5-325MG [[place] 5-325] 1 each PO Q6HR PRN 7 Days #28 tab [Rx] Metoprolol Tartrate [Lopressor] 25 mg PO BID #60 tab 01/01/18 [Rx] predniSONE 60 mg PO DAILY #9 tab 01/01/18 [Rx] Follow up Appointment(s)/Referral(s): [facility], [NON-STAFF] - 1-2 Days Rickey Desai MD [Primary Care Provider] - 1-2 days Odalys Jolly MD [STAFF PHYSICIAN] - 1 Week Margarita Holliday MD [STAFF PHYSICIAN] - 3 Weeks Activity/Diet/Wound Care/Special Instructions: regular diet activity as tolerated Follow-up with your orthopedic surgeon Discharge Disposition: HOME WITH HOME HEALTH SERVICES
[2018-01-02 15:39] VITALS: PULSE 70
== END 2018-01-02 16:53 | disposition home health service (06) | DRG 853 ==
LOC: EC 22:01 → 6ICU 12-27 00:20 → 6SEL 12-29 17:25 → 4MS4W 12-31 12:28
PROVIDERS: ADMIT Internal Medicine; ATTEND Internal Medicine
PROC: 0B9H8ZX Drainage of Lung Lingula, Via Natural or Artificial Opening Endoscopic, Diagnostic (ICD-10-PCS; 2017-12-26)
PROC: 5A1945Z Respiratory Ventilation, 24-96 Consecutive Hours (ICD-10-PCS; 2017-12-26)
PROC: 0BH17EZ Insertion of Endotracheal Airway into Trachea, Via Natural or Artificial Opening (ICD-10-PCS; 2017-12-26)
PROC: 02H633Z Insertion of Infusion Device into Right Atrium, Percutaneous Approach (ICD-10-PCS; 2017-12-26)
PROC: 0B9J8ZX Drainage of Left Lower Lung Lobe, Via Natural or Artificial Opening Endoscopic, Diagnostic (ICD-10-PCS; principal; 2017-12-27)
PROC: 03HB33Z Insertion of Infusion Device into Right Radial Artery, Percutaneous Approach (ICD-10-PCS; 2017-12-27)
DX: A40.3 Sepsis due to Streptococcus pneumoniae (principal); I21.A1 Myocardial infarction type 2; J13 Pneumonia due to Streptococcus pneumoniae; J14 Pneumonia due to Hemophilus influenzae; J96.01 Acute respiratory failure with hypoxia; J96.02 Acute respiratory failure with hypercapnia; R65.21 Severe sepsis with septic shock; E87.4 Mixed disorder of acid-base balance; J44.0 Chronic obstructive pulmonary disease with (acute) lower respiratory infection; J44.1 Chronic obstructive pulmonary disease with (acute) exacerbation; S52.502A Unspecified fracture of the lower end of left radius, initial encounter for closed fracture; E78.5 Hyperlipidemia, unspecified; E87.6 Hypokalemia; E87.8 Other disorders of electrolyte and fluid balance, not elsewhere classified; E89.0 Postprocedural hypothyroidism; F17.200 Nicotine dependence, unspecified, uncomplicated; G35 Multiple sclerosis; G40.909 Epilepsy, unspecified, not intractable, without status epilepticus; I51.7 Cardiomegaly; F32.9 Major depressive disorder, single episode, unspecified; R07.81 Pleurodynia; Z79.51 Long term (current) use of inhaled steroids; Z79.899 Other long term (current) drug therapy; Z79.890 Hormone replacement therapy; Z88.0 Allergy status to penicillin; Z86.14 Personal history of Methicillin resistant Staphylococcus aureus infection; Z90.710 Acquired absence of both cervix and uterus; Z87.442 Personal history of urinary calculi; Z98.51 Tubal ligation status; Z82.0 Family history of epilepsy and other diseases of the nervous system; Z82.49 Family history of ischemic heart disease and other diseases of the circulatory system; Z83.3 Family history of diabetes mellitus; Z82.61 Family history of arthritis; Z83.79 Family history of other diseases of the digestive system; X58.XXXA Exposure to other specified factors, initial encounter; Y92.9 Unspecified place or not applicable
CPT/HCPCS: 31500; 31624; 36415; 36556; 36600; 51702; 71045; 71275; 80048; 80053; 80061; 80202; 81001; 82330; 82550; 82553; 82805; 83605; 83735; 83880; 84100; 84132; 84145; 84484; 85025; 85049; 85610; 85730; 87040; 87070; 87077; 87086; 87102; 87116; 87186; 87205; 87206; 87252; 87299; 87449; 87496; 87498; 87502; 87529; 87581; 87634; 87798; 89050; 93005; 93306; 94002; 94003; 94640; 94760; 96365; 96366; 96368; 96375; 96376; 99291

== ENCOUNTER 2018-06-13 16:14 | Emergency (ER) | payer OTHER ==
[2018-06-13 16:35] VITALS: TEMP 98.4
[2018-06-13] MEDS ORDERED: MORPHINE SULFATE 4 MG/ML SYRINGE IV STA (17:12)
[2018-06-13] MEDS ORDERED: KETOROLAC 30 MG/ML 1 ML VIAL IVP STA (17:12)
[2018-06-13] MEDS ORDERED: SODIUM CHLORIDE 0.9% 1,000 ML IV STA ×2 (17:12)
[2018-06-13] MEDS ORDERED: ONDANSETRON 4 MG/2 ML VIAL IVP STA (17:12)
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
[2018-06-13 18:26] LABS: Basophils # (A) 0.1 k/uL (0-0.2); Basophils % (A) 1 %; Eosinophils # (A) 0.5 k/uL (0-0.7); Eosinophils % (A) 4 %; HCT 46.4 % (34.0-46.0); HGB 15.8 gm/dL (11.4-16.0); Lymphocytes # (A) 3.8 k/uL (1.0-4.8); Lymphocytes % (A) 29 %; MCH 30.8 pg (25.0-35.0); MCV 90.5 fL (80.0-100.0); Mean Platelet Volume 8.7; Monocytes # (A) 0.6 k/uL (0-1.0); Monocytes % (A) 4 %; Neutrophils # (A) 7.8 k/uL (1.3-7.7); Neutrophils % (A) 60 %; Platelet Count 333 k/uL (150-450); RBC 5.12 m/uL (3.80-5.40); RDW 14.3 % (11.5-15.5)
[2018-06-13 18:29] LABS: Appearance,Urine Clear (Clear); Bilirubin,Urine Negative (Negative); Blood,Urine Negative (Negative); Color,Urine Yellow; Glucose,Urine (UA) Negative (Negative); Ketones,Urine Negative (Negative); Leukocyte Esterase,Urine Negative (Negative); Nitrite,Urine Negative (Negative); PH, Urine 5.5 (5.0-8.0); Protein,Urine Negative (Negative); Urobilinogen,Urine <2.0 mg/dL (<2.0)
[2018-06-13 18:39] LABS: ALT 26 U/L (9-52); AST 16 U/L (14-36); Albumin 4.2 g/dL (3.5-5.0); Alkaline Phosphatase 61 U/L (38-126); Amylase 98 U/L (30-110); Anion Gap 10 mmol/L; Blood Urea Nitrogen 11 mg/dL (7-17); Calcium 9.4 mg/dL (8.4-10.2); Carbon Dioxide 21 mmol/L (22-30); Chloride 108 mmol/L (98-107); Glucose 57 mg/dL (74-99); Lipase 231 U/L (23-300); Potassium 4.4 mmol/L (3.5-5.1); Sodium 139 mmol/L (137-145); Total Bilirubin 0.4 mg/dL (0.2-1.3); Total Protein 6.8 g/dL (6.3-8.2)
--- NOTE | 2018-06-13 20:11 | CT ---
EXAMINATION TYPE: CT abdomen pelvis wo con DATE OF EXAM: 06/13/2018 COMPARISON: None HISTORY: left flank pain CT DLP: 565.6 mGycm Automated exposure control for dose reduction was used. TECHNIQUE: Helical acquisition of images was performed from the lung bases through the pelvis. FINDINGS: LUNG BASES: No significant abnormality is appreciated. LIVER/GB: No significant abnormality is appreciated. PANCREAS: No significant abnormality is seen. SPLEEN: No significant abnormality is seen. ADRENALS: No significant abnormality is seen. KIDNEYS, URETERS, AND BLADDER: No hydronephrosis or hydroureter. 1 mm nonobstructing right renal calc ification noted. No other calcifications. FREE AIR: No free air is visualized RETROPERITONEAL ADENOPATHY: None visualized REPRODUCTIVE ORGANS: 3 cm water density left adnexal cyst is noted, as functional ovarian cyst which can be proven with two-week or six-week follow-up ultrasound. URINARY BLADDER: No significant abnormality is seen. PELVIC ADENOPATHY: None visualized. OSSEOUS STRUCTURES: No significant abnormality is seen. BOWEL: No significant abnormality is seen. The appendix has normal appearance. There is no colonic d iverticula. OTHER: Bilateral pelvic phleboliths are noted. IMPRESSION: 1. NO ACUTE PROCESS. 2. LEFT ADNEXAL CYST.
[2018-06-13 20:59] VITALS: RESP 15
[2018-06-13 21:54] VITALS: BP 135/85; PULSE 67
== END 2018-06-13 21:45 | disposition home or self-care (01) ==
LOC: EC 16:14
DX: S39.012A Strain of muscle, fascia and tendon of lower back, initial encounter (principal); J44.9 Chronic obstructive pulmonary disease, unspecified; E78.5 Hyperlipidemia, unspecified; E07.9 Disorder of thyroid, unspecified; F32.9 Major depressive disorder, single episode, unspecified; F17.200 Nicotine dependence, unspecified, uncomplicated; Z79.51 Long term (current) use of inhaled steroids; Z79.899 Other long term (current) drug therapy; Z88.0 Allergy status to penicillin; Z87.442 Personal history of urinary calculi; Z90.89 Acquired absence of other organs; X50.9XXA Other and unspecified overexertion or strenuous movements or postures, initial encounter
CPT/HCPCS: 36415; 80053; 82150; 83690; 85025; 81003; 87086; 74176; 99284; 96374; 96375 ×2; 96361 ×3; J2270; J2405; J1885

== ENCOUNTER 2020-01-01 17:39 | Observation (INO) | payer MEDICARE, OTHER ==
[2020-01-01] MEDS ORDERED: SODIUM CHLORIDE 0.9% 1,000 ML IV STA (17:42)
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
[2020-01-01 18:26] LABS: Basophils # (A) 0.1 k/uL (0-0.2); Basophils % (A) 1 %; Eosinophils # (A) 0.4 k/uL (0-0.7); Eosinophils % (A) 6 %; Lymphocytes # (A) 3.7 k/uL (1.0-4.8); Lymphocytes % (A) 56 %; MCH 30.2 pg (25.0-35.0); MCHC 31.9 g/dL (31.0-37.0); MCV 94.7 fL (80.0-100.0); Mean Platelet Volume 9.7; Monocytes # (A) 0.3 k/uL (0-1.0); Monocytes % (A) 4 %; Neutrophils # (A) 2.1 k/uL (1.3-7.7); Neutrophils % (A) 31 %; Platelet Count 245 k/uL (150-450); RBC 4.65 m/uL (3.80-5.40); RDW 13.5 % (11.5-15.5); WBC 6.7 k/uL (3.8-10.6)
[2020-01-01 18:28] LABS: Appearance,Urine Cloudy (Clear); Bacteria,Urine Many /hpf; Bilirubin,Urine Negative (Negative); Blood,Urine Negative (Negative); Color,Urine Yellow; Glucose,Urine (UA) Negative (Negative); Ketones,Urine Negative (Negative); Leukocyte Esterase,Urine Small (Negative); Mucus,Urine Rare /hpf; Nitrite,Urine Positive (Negative); Protein,Urine Trace (Negative); RBC,Urine 1 /hpf (0-5); Specific Gravity,Urine 1.018 (1.001-1.035); Squamous Epithelial Cell,Urine 17 /hpf (0-4); Urobilinogen,Urine <2.0 mg/dL (<2.0); WBC,Urine 24 /hpf (0-5)
[2020-01-01 18:37] LABS: ALT 12 U/L (4-34); AST 20 U/L (14-36); African American GFR (CKD) >90 (>60 ml/min/1.73 sqM); Albumin 3.8 g/dL (3.5-5.0); Alkaline Phosphatase 55 U/L (38-126); Anion Gap 4 mmol/L; Blood Urea Nitrogen 13 mg/dL (7-17); Calcium 8.4 mg/dL (8.4-10.2); Carbon Dioxide 24 mmol/L (22-30); Chloride 111 mmol/L (98-107); Creatine Kinase 50 U/L (30-135); Glucose 84 mg/dL (74-99); Non-African American GFR(CKD) 86 (>60 ml/min/1.73 sqM); Potassium 4.1 mmol/L (3.5-5.1); Sodium 139 mmol/L (137-145); Total Bilirubin 0.4 mg/dL (0.2-1.3); Total Protein 6.1 g/dL (6.3-8.2)
[2020-01-01 18:50] LABS: INR 0.9 (<1.2); Partial Thromboplastin Time 25.8 sec (22.0-30.0); Prothrombin Time 9.8 sec (9.0-12.0)
[2020-01-01] MEDS ORDERED: NITROGLYCERIN SL TABS 0.4 MG TAB SUBLINGUAL PRN (20:38)
[2020-01-01] MEDS ORDERED: MECLIZINE 25 MG TAB PO PRN (23:29)
[2020-01-01] MEDS ORDERED: IBUPROFEN 800 MG TAB PO PRN (23:29)
[2020-01-01] MEDS ORDERED: IPRATROPIUM-ALBUTEROL 3 ML NEB INHALATION PRN (23:42)
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
[2020-01-02] MEDS: methylPREDNISolone SOD SUCC 1,000 MG in SODIUM CHLORIDE 0.9% 250 ML IVPB SCH ×2 (00:01→23:11)
[2020-01-02] MEDS: ATORVASTATIN 20 MG TAB PO SCH ×2 (00:01→20:11)
[2020-01-02] MEDS: HEPARIN SODIUM,PORCINE 5,000 UNIT/ML 1 ML VIAL SQ SCH ×4 (00:01→23:11)
[2020-01-02] MEDS: busPIRone HCl 10 MG TAB PO SCH ×3 (00:02→20:11)
[2020-01-02] MEDS: QUEtiapine 25 MG TAB PO SCH ×2 (00:02→20:11)
[2020-01-02] MEDS: tiZANidine 4 MG TAB PO SCH ×3 (00:02→20:11)
[2020-01-02] MEDS: GABAPENTIN 300 MG CAP PO SCH ×4 (00:02→20:11)
[2020-01-02] MEDS: DULoxetine HCL 30 MG CAPSULE.DR PO SCH ×3 (00:02→20:11)
[2020-01-02 02:19] LABS: Cholesterol 223 mg/dL (<200); HDL Cholesterol 34 mg/dL (40-60); LDL Cholesterol,Calculated 159 mg/dL (0-99); Triglycerides 150 mg/dL (<150)
[2020-01-02] MEDS: BUTALB/APAP/CAFF 50-325-40MG TAB PO PRN ×2 (06:21→14:57)
[2020-01-02] MEDS: LEVOTHYROXINE 100 MCG TAB PO SCH (06:22)
--- NOTE | 2020-01-02 08:21 | CT ---
EXAMINATION TYPE: CT brain wo con DATE OF EXAM: 01/02/2020 COMPARISON: Prior CT brain 01/26/2017 HISTORY: Passing out and right leg weakness CT DLP: 1082.4 mGycm. Automated Exposure Control for Dose Reduction was Utilized. TECHNIQUE: CT scan of the head is performed without contrast. FINDINGS: There is no acute intracranial hemorrhage, mass effect, or midline shift identified. The ventricles and sulci are within normal limits in size. The globes are intact and the visualized sin uses are clear. Periventricular white matter shows patchy low attenuation. Cortical atrophy is again noted. IMPRESSION: No acute intracranial hemorrhage, mass effect, or midline shift is seen.
[2020-01-02] MEDS: LOSARTAN 25 MG TAB PO SCH (09:25)
[2020-01-02] MEDS: PANTOPRAZOLE 40 MG TABLET PO SCH (09:25)
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
--- NOTE | 2020-01-02 11:12 | US ---
EXAMINATION TYPE: US carotid duplex BILAT DATE OF EXAM: 01/02/2020 COMPARISON: NONE CLINICAL HISTORY: 49-year-old female syncope. Patient states she passes out frequently. HTN per zeynep ent. TECHNIQUE: Carotid duplex ultrasound examination. Indirect Doppler criteria was utilized. FINDINGS: EXAM MEASUREMENTS: RIGHT: Peak Systolic Velocity (PSV) cm/sec ----- Right CCA: 80.1 ----- Right ICA: 77.9 ----- Right ECA: 121.0 ICA/CCA ratio: 1.0 RIGHT: End Diastole cm/sec ----- Right CCA: 16.4 ----- Right ICA: 16.4 ----- Right ECA: 20.8 LEFT: Peak Systolic Velocity (PSV) cm/sec ----- Left CCA: 69.8 ----- Left ICA: 67.2 ----- Left ECA: 127.4 ICA/CCA ratio: 1.0 LEFT: End Diastole cm/sec ----- Left CCA: 15.4 ----- Left ICA: 12.8 ----- Left ECA: 24.1 VERTEBRALS (direction of flow): Right Vertebral: Antegrade Left Vertebral: Antegrade Rhythm: Normal Fruit Packer notes: No elevated velocities, plaque or significant stenosis. Mild bilateral intimal wal l thickening. IMPRESSION: No hemodynamically significant internal carotid artery stenosis on either side. Criteria for Assigning % of Stenosis / Diameter reduction (Estimation based on the indirect measurements of the internal carotid artery velocities (ICA PSV). 1. Normal (no stenosis)=ICA PSV < 125 cm/s: ratio < 2.0: ICA EDV<40 cm/s. 2. Less than 50% stenosis=ICA PSV < 125 cm/s: ratio < 2.0: ICA EDV<40 cm/s. 3. 50 to 69% stenosis=ICA PSV of 125 to 230 cm/s: ration 2.0 ? 4.0: ICA EDV 40-100 cm/s. 4. Greater than 70% stenosis to near occlusion= ICA PSV > 230 cm/s: ratio > 4.0: ICA EDV > 100 cm/s. 5. Near occlusion= ICA PSV velocities may be low or undetectable: variable ratio and ICA EDV. 6. Total occlusion=unable to detect flow.
--- NOTE | 2020-01-02 12:00 | ECHOF ---
Referral Reason:syncope, sinus bradycardia MEASUREMENTS -------- HEIGHT: 157.5 cm WEIGHT: 68.0 kg BP: 109/67 RVIDd: 3.7 cm (< 3.3) IVSd: 1.1 cm (0.6 - 1.1) LVIDd: 4.0 cm (3.9 - 5.3) LVPWd: 1.1 cm (0.6 - 1.1) IVSs: 1.5 cm LVIDs: 2.6 cm LVPWs: 1.5 cm LAESV Index (A-L): 30.75 ml/m Ao Diam: 2.8 cm (2.0 - 3.7) AV Cusp: 2.1 cm (1.5 - 2.6) MV EXCURSION: 17.009 mm (> 18.000) MV EF SLOPE: 112 mm/s (70 - 150) EPSS: 0.2 cm MV E John: 0.91 m/s MV DecT: 179 ms MV A John: 0.71 m/s MV E/A Ratio: 1.29 RAP: 5.00 mmHg RVSP: 28.56 mmHg FINDINGS -------- This was a technically adequate study. The left ventricular size is normal. Left ventricular wall thickness is normal. Overall left vent ricular systolic function is normal with, an EF between 55 - 60 %. The diastolic filling pattern is normal for the age of the patient 6.89. The right ventricle is mildly enlarged. LA is midly dilated 29-33ml/m2. The right atrial size is normal. Interatrial and interventricular septum intact. There is no evidence of aortic regurgitation. There is no evidence of aortic stenosis. There is trace to mild mitral regurgitation. Mild tricuspid regurgitation present. There is no evidence of pulmonary hypertension. The right v entricular systolic pressure, as measured by Doppler, is 28.56mmHg. There is no pulmonic regurgitation present. The aortic root size is normal. IVC Not well visulized. There is no pericardial effusion. CONCLUSIONS -------- 1. The left ventricular size is normal. 2. Left ventricular wall thickness is normal. 3. Overall left ventricular systolic function is normal with, an EF between 55 - 60 %. 4. The diastolic filling pattern is normal for the age of the patient 6.89 5. The right ventricle is mildly enlarged. 6. LA is midly dilated 29-33ml/m2. 7. There is trace to mild mitral regurgitation. 8. Mild tricuspid regurgitation present. SURGICAL SUPPLIES STERILIZER: Keara Nunes RDCS
--- NOTE | 2020-01-02 14:25 | MR ---
EXAMINATION TYPE: MR brain wo/w con DATE OF EXAM: 01/02/2020 COMPARISON: Prior brain MRI 01/27/2017 HISTORY: Multiple sclerosis presenting with slurred speech TECHNIQUE: Multiplanar, multisequence images of the brain and brainstem is performed without and with IV contras t, utilizing 7 mL intravenous Gadavist . FINDINGS: There is artifact on the exam. Diffusion weighted images demonstrate no evidence of a recen t infarct or other diffusion abnormality. There is no extra-axial fluid collection or significant in terval change in extensive white matter signal abnormality. Confluent and scattered hyperintensities present in the periventricular, pericallosal, white matter on inversion recovery T2-weighted sequenc es, some areas of encephalomalacia are present in the pericallosal white matter. The ventricular syst em and cisternal spaces are normal in size and appearance. The brain volume is stable, there is atro phy as on prior which is likely advanced to the patient's chronological age. Midline structures demonstrate normal morphology. The craniocervical junction appears within normal limits. Post contrast images demonstrate no abnormal enhancement. The dural venous sinuses appear pa tent. The visualized sinuses are clear and the globes are intact. IMPRESSION: Extensive persistent white matter signal changes are essentially stable
[2020-01-02] MEDS ORDERED: METHYL SALICYLATE/MENTHOL CREAM 5 OZ TOPICAL PRN (15:09)
[2020-01-02] MEDS ORDERED: MORPHINE SULFATE 2 MG/ML SYRINGE IVP STA (16:16)
[2020-01-02] MEDS ORDERED: MORPHINE SULFATE 2 MG/ML SYRINGE IVP PRN (16:16)
--- NOTE | 2020-01-02 16:35 | P.PN ---
Subjective Progress Note Date: 01/02/20 Principal diagnosis: Patient was seen and examined. No acute events overnight. Patient reports urinary hesitancy and malodor. She complains of shakiness in her right upper extremity and also on the inside. Patient reports that her daughter 1 year ago and is tearful. She denies any chest pain, shortness of breath or palpitations. No nausea or vomiting. No fever or chills. Objective - Vital Signs Vital signs: Vital Signs Temp 98.2 F 01/02/20 15:00 Pulse 60 01/02/20 15:00 Resp 16 01/02/20 15:00 BP 155/89 01/02/20 15:00 Pulse Ox 97 01/02/20 15:00 Intake & Output 01/01/20 01/02/20 01/02/20 18:59 06:59 18:59 Weight 68.039 kg Other: Voiding Method Toilet # Voids 1 - Exam General: [non toxic], [no distress], [appears at stated age] Derm: [warm], [dry] Head: [atraumatic], [normocephalic], [symmetric] Eyes: [EOMI], [no lid lag], [anicteric sclera] Mouth: [no lip lesion], [mucus membranes moist] Cardiovascular: [S1S2 reg], [no murmur], [positive posterior tibial pulse bilateral], Lungs: [CTA bilateral], [no rhonchi, no rales] , [no accessory muscle use] Abdominal: [soft], [ nontender to palpation], [no guarding], [no appreciable organomegaly] Ext: [no gross muscle atrophy], [no edema], [no contractures] Neuro: [ CN II-XI grossly intact], [no focal neuro deficits] Psych: [Alert], [oriented], [appropriate affect] - Labs CBC & Chem 7: 01/01/20 18:09 01/01/20 18:09 Labs: Abnormal Lab Results - Last 24 Hours (Table) 01/01/20 01/01/20 01/02/20 Range/Units 18:09 18:09 00:43 Chloride 111 H (98-107) mmol/L Total Protein 6.1 L (6.3-8.2) g/dL Triglycerides 150 H (<150) mg/dL Cholesterol 223 H (<200) mg/dL LDL Cholesterol, Calc 159 H (0-99) mg/dL HDL Cholesterol 34 L (40-60) mg/dL Urine Appearance Cloudy H (Clear) Urine Protein Trace H (Negative) Urine Nitrite Positive H (Negative) Ur Leukocyte Esterase Small H (Negative) Urine WBC 24 H (0-5) /hpf Ur Squamous Epith Cells 17 H (0-4) /hpf Urine Bacteria Many H (None) /hpf Urine Mucus Rare H (None) /hpf Microbiology - Last 24 Hours (Table) 01/01/20 18:09 Urine Culture - Preliminary Urine,Voided Assessment and Plan Assessment: Syncopal episodes Generalized weakness with history of multiple sclerosis UTI Seizure disorder Hypothyroidism Fibromyalgia Tobacco abuse Orthostats negative. CT brain negative. Carotid Doppler negative. Echocardiogram shows EF 55-60% with no diastolic dysfunction. Cardiology recommends no further workup. Plans: Follow EEG. Telemetry monitoring. Follow neurology recommendations. MRI brain shows extensive persistent white matter changes stable. Plans: Continue Solu-Medrol. Advance neurochecks. Follow neurology recommendations. Plans: 3 days Rocephin. Follow urine culture. Plans: Follow EEG. Decision of antiepileptic medication depending on results of EEG. Seizure precautions. Plans: Restart Synthroid. Plans: Continue Cymbalta. Continue Neurontin. Morphine as needed for pain. Tizanidine as needed. Nicotine patch offered. [Patient is pending clinical improvement. EEG results pending. Likely DC t omorrow.]
--- NOTE | 2020-01-02 17:53 | EEG ---
ELECTROENCEPHALOGRAM REPORT DATE OF SERVICE: 01/02/2020. This is a 49-year-old female with history of multiple sclerosis, closed-head injury, fibromyalgia that came to the hospital on 01/01/2020 because of multiple episodes of passing out. This EEG was obtained to evaluate for seizure and epileptiform activity. Relevant medication: The patient is not on any antiepileptic medication. EEG TYPE: A routine 21 channel EEG was performed with video using the 02/2020 electrode placement system. DESCRIPTION: Wakefulness, drowsiness and stage II are obtained and stage 2 sleep are obtained. During wakefulness, there is a posterior dominant rhythm of low to moderate voltage, reactive, well modulated of 6-7 Hz activity. During drowsiness,there is slowing and attenuation of the background activity. During stage 2 sleep, there are sleep spindles and K complexes. There are occasional to frequent 1.5 Hz of generalized rhythmic delta activity of frontal predominance. INTERICTAL AND ICTAL: None. ACTIVATION PROCEDURE: Photic stimulation did not evoke a posterior driving response. Hyperventilation was not performed because of the patient's clinical history. EEG DIAGNOSIS: This is an abnormal EEG due to : 1. Generalized rhythmic delta activity with frontal predominance that there are occasional to frequent during the study. 2. Mild background slowing. CLINICAL INTERPRETATION: This is an abnormal routine awake, drowsy, and asleep EEG. The generalized rhythmic delta activity and mild background slowing is suggestive of mild to moderate encephalopathy of unspecified etiology. There is no focal slowing. No epileptiform activity. No seizure was detected during this study. Clinical interpretation is recommended. MMODL / IJN: [id number] /
[2020-01-02] MEDS: LORazepam 2 MG/ML INJ IV PRN (20:22)
[2020-01-03 04:15] VITALS: RESP 18
[2020-01-03] MEDS: LEVOTHYROXINE 100 MCG TAB PO SCH (05:41)
[2020-01-03] MEDS: LORazepam 2 MG/ML INJ IV PRN (05:41)
[2020-01-03] MEDS: PANTOPRAZOLE 40 MG TABLET PO SCH (07:33)
[2020-01-03] MEDS: HEPARIN SODIUM,PORCINE 5,000 UNIT/ML 1 ML VIAL SQ SCH (08:00)
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
[2020-01-03] MEDS: busPIRone HCl 10 MG TAB PO SCH (08:39)
[2020-01-03] MEDS: GABAPENTIN 300 MG CAP PO SCH (08:40)
[2020-01-03] MEDS: DULoxetine HCL 30 MG CAPSULE.DR PO SCH (08:40)
[2020-01-03] MEDS: tiZANidine 4 MG TAB PO SCH (08:44)
[2020-01-03] MEDS: LOSARTAN 25 MG TAB PO SCH (08:44)
[2020-01-03 09:29] VITALS: BP 119/63; PULSE 96; TEMP 98.5
--- NOTE | 2020-01-03 10:01 | P.DS ---
Providers Date of admission: 01/01/20 20:39 Expected date of discharge: 01/03/20 Attending physician: Gale Rees MD Consults: 01/01/20 23:31 Consult Physician Routine Consulting Provider: Hector Leach Consult Reason/Comments: MS flare up Do you want consulting provider notified?: Yes, Notify in am 01/01/20 23:42 Consult Physician Routine Consulting Provider: Nehemias Delgado Consult Reason/Comments: sinus bradycardia, syncope Do you want consulting provider notified?: Yes, Notify in am Primary care physician: Juan Catherine [facility] Course: 49 year old female with MS, COPD, hypothyroid Patient comes in with two-week history of worsening right-sided weakness and dizziness and recurrent syncopal episodes. She describes episodes as complete passing out until her boyfriend wakes her up sometimes she would be just sitting in a chair laying down in bed and she passes out and other times would be associated with sudden change in position resulting in feeling dizzy and passing out. No injuries no nausea vomiting no chest pain no headache. No double vision no changes in hearing or sensation. However she does notice some weakness in her right leg with difficulty ambulating she adds that she has history of MS and last relapse was about 2 years ago and this feels typical of her flareups. She denies any injuries denies any trauma. She also adds that she used to be on metoprolol that she has stopped on her own about 3 weeks ago because it was making her dizzy and feeling sick. She stopped it on her own without tapering it off her doctor switched her to losartan to control her blood pressure. She also reports frequent urination and nocturia but denies any dysuria or hematuria denies any fevers or chills this been going on for long time. Yesterday her boyfriend grew concerned and took her to [facility] she did not tell them that she has history of MS she was given some pain medications and was discharged She comes in today to our facility due to repeated episodes of syncope and weakness of her right lower extremity. In the ED initial workup showed elevated white count and positive UA suggestive of urinary tract infection. EKG showed sinus bradycardia Patient was started on Solu-Medrol for multiple sclerosis flare. She was started on Rocephin for UTI and urine culture was collected. Neurology was consulted. CT brain was negative. MRI showed extensive white matter changes which were stable. EKG showed generalized rhythmic delta activity and mild background slowing suggestive of mild to moderate encephalopathy and no seizure activity was detected. Cardiology was consulted for syncopal episode. Echocardiogram was obtained which showed EF 55-60% with normal wall motion. Orthostatic vitals were negative. Carotid Doppler was negative. Cardiology believed that her syncopal episodes related to a neurological cause. Patient was seen and examined. No acute events overnight. No further syncopal episodes. Patient reports improvement in her anxiety after getting Ativan yesterday. She denies any chest pain, shortness breath or palpitations. No nausea or vomiting. No fever or chills. General: [non toxic], [no distress], [appears at stated age] Derm: [warm], [dry] Head: [atraumatic], [normocephalic], [symmetric] Eyes: [EOMI], [no lid lag], [anicteric sclera] Mouth: [no lip lesion], [mucus membranes moist] Cardiovascular: [S1S2 reg], [no murmur], [positive posterior tibial pulse bilateral], Lungs: [CTA bilateral], [no rhonchi, no rales] , [no accessory muscle use] Abdominal: [soft], [ nontender to palpation], [no guarding], [no appreciable organomegaly] Ext: [no gross muscle atrophy], [no edema], [no contractures] Neuro: [ CN II-XI grossly intact], [no focal neuro deficits] Psych: [Alert], [oriented], [appropriate affect] Anxiety Syncopal episodes Generalized weakness with history of multiple sclerosis UTI Seizure disorder Hypothyroidism Fibromyalgia Tobacco abuse Anniversary of her daughter's . Will DC home with 3 days of Ativan as needed. Orthostats negative. CT brain negative. Carotid Doppler negative. Echocardiogram shows EF 55-60% with no diastolic dysfunction. EKG does not show any seizure-like activity. Cardiology recommends no further workup. Plans: Telemetry monitoring. Follow cardiology in the outpatient setting. MRI brain shows extensive persistent white matter changes stable. Plans: Medrol Dosepak for discharge. Advance neurochecks. Follow neurology recommendations. Patient advised follow-up with neurology within 1 week. Plans: Will DC home with 5 more days of Bactrim. Follow urine culture. Plans: No antiepileptic medication as per neurology given EEG results. Seizure precautions. Plans: Restart Synthroid. Plans: Continue Cymbalta. Continue Neurontin. Morphine as needed for pain. Tizanidine as needed. Nicotine patch offered. [Patient is pending clinical improvement. No syncopal episodes detected while inpatient. Workup negative so far. Will need adequate follow-up with neurology for her multiple sclerosis. Follow-up PCP within 3 days for results of urine culture. Patient verbalized understanding of the plan. This complex discharge took about 35 minutes to complete.] Pertinent Studies: Brain CT, echocardiogram, carotid Doppler, brain MRI, EEG Patient Condition at Discharge: Stable Plan - Discharge Summary Discharge Rx Participant: No New Discharge Prescriptions: New LORazepam [Ativan] 1 mg PO TID PRN 3 Days #9 tab PRN Reason: Anxiety Sulfamethox-Tmp 800-160Mg [Bactrim DS 800-160 mg] 1 tab PO Q12HR #10 tab methylPREDNISolone [Medrol Dose Pack] 4 mg PO DIRECTED #1 pack HYDROcodone/APAP 5-325MG [[place] 5-325] 1 tab PO Q4HR PRN 3 Days #18 tab PRN Reason: Pain Continue Simvastatin [Zocor] 40 mg PO HS Levothyroxine Sodium [Synthroid] 150 mcg PO DAILY DULoxetine HCL [Cymbalta] 30 mg PO BID Omeprazole [PriLOSEC] 20 mg PO AC-BID Ibuprofen [Motrin] 800 mg PO TID Gabapentin [Neurontin] 600 mg PO TID Albuterol Sulfate [Ventolin HFA] 1 - 2 puff INHALATION RT-Q6H PRN PRN Reason: Shortness Of Breath QUEtiapine [SEROquel] 75 mg PO HS Losartan Potassium [Cozaar] 25 mg PO DAILY Meclizine HCl 25 mg PO BID PRN PRN Reason: nausea busPIRone HCL 10 mg PO BID Butalb/APAP/Caff 50-325-40Mg [Fioricet 50-325-40] 1 tab PO Q8H PRN PRN Reason: Migraine Headache tiZANidine HCL 2 mg PO BID Discontinued Ondansetron Odt [Zofran ODT] 8 mg PO DAILY PRN PRN Reason: Nausea Discharge Medication List DULoxetine HCL [Cymbalta] 30 mg PO BID 01/27/17 [History] Levothyroxine Sodium [Synthroid] 150 mcg PO DAILY 01/27/17 [History] Simvastatin [Zocor] 40 mg PO HS 01/27/17 [History] Gabapentin [Neurontin] 600 mg PO TID 12/27/17 [History] Ibuprofen [Motrin] 800 mg PO TID 12/27/17 [History] Omeprazole [PriLOSEC] 20 mg PO AC-BID 12/27/17 [History] Albuterol Sulfate [Ventolin HFA] 1 - 2 puff INHALATION RT-Q6H PRN 01/01/20 [History] Butalb/APAP/Caff 50-325-40Mg [Fioricet 50-325-40] 1 tab PO Q8H PRN 01/01/20 [History] Losartan Potassium [Cozaar] 25 mg PO DAILY 01/01/20 [History] Meclizine HCl 25 mg PO BID PRN 01/01/20 [History] QUEtiapine [SEROquel] 75 mg PO HS 01/01/20 [History] busPIRone HCL 10 mg PO BID 01/01/20 [History] tiZANidine HCL 2 mg PO BID 01/01/20 [History] HYDROcodone/APAP 5-325MG [[place] 5-325] 1 tab PO Q4HR PRN 3 Days #18 tab 01/03/20 [Rx] LORazepam [Ativan] 1 mg PO TID PRN 3 Days #9 tab 01/03/20 [Rx] Sulfamethox-Tmp 800-160Mg [Bactrim DS 800-160 mg] 1 tab PO Q12HR #10 tab 01/03/20 [Rx] methylPREDNISolone [Medrol Dose Pack] 4 mg PO DIRECTED #1 pack 01/03/20 [Rx] Follow up Appointment(s)/Referral(s): Juan Hyde MD [Primary Care Provider] - 1-2 days Sonia Prince MD [REFERRING] - 1 Week Harmeet Sun MD [STAFF PHYSICIAN] - 2 Weeks Activity/Diet/Wound Care/Special Instructions: Follow-up with PCP within 3 days of discharge. Follow-up with neurology within 1 week of discharge. Take all medications as advised. Come back to the ED or call 911 for new onset slurred speech, weakness of the extremities, chest pain, shortness of breath or palpitations. Follow-up with cardiology within 2 weeks of discharge. Discharge Disposition: HOME SELF-CARE
== END 2020-01-03 13:30 | disposition home or self-care (01) ==
LOC: EC 17:39 → 1SOBS 20:39
PROVIDERS: ADMIT Internal Medicine; ATTEND Internal Medicine
DX: R55 Syncope and collapse (principal); G35 Multiple sclerosis; J44.9 Chronic obstructive pulmonary disease, unspecified; E03.9 Hypothyroidism, unspecified; M79.7 Fibromyalgia; E78.5 Hyperlipidemia, unspecified; G40.909 Epilepsy, unspecified, not intractable, without status epilepticus; Z87.01 Personal history of pneumonia (recurrent); F17.200 Nicotine dependence, unspecified, uncomplicated; F12.90 Cannabis use, unspecified, uncomplicated; Z86.14 Personal history of Methicillin resistant Staphylococcus aureus infection; Z82.49 Family history of ischemic heart disease and other diseases of the circulatory system; Z83.3 Family history of diabetes mellitus; Z82.0 Family history of epilepsy and other diseases of the nervous system; Z79.1 Long term (current) use of non-steroidal anti-inflammatories (NSAID); Z79.890 Hormone replacement therapy; Z79.899 Other long term (current) drug therapy; Z88.0 Allergy status to penicillin; F41.9 Anxiety disorder, unspecified; N39.0 Urinary tract infection, site not specified
CPT/HCPCS: 96361; 96365; 96366; 96367; 96372 ×2; 96375; 96376; 99285; 36415; 95819; 93306; 93005; 80061; 80053; 82550; 83735; 84100; 84484 ×2; 85025; 85610; 85730; 81001; 87086; 87077; 87186; 93880; 70450; 70553; G0378 ×3; J2060 ×2; J1644 ×2; J2930; J0696 ×3; J2270 ×2; A9585

== ENCOUNTER 2020-03-27 20:51 | Inpatient (IN) | payer MEDICARE ==
[2020-03-27] MEDS ORDERED: ALBUTEROL NEBULIZED 2.5 MG/3 ML INHALATION STA (20:59)
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
[2020-03-27 21:37] LABS: Appearance,Urine Clear (Clear); Bilirubin,Urine Negative (Negative); Blood,Urine Negative (Negative); Color,Urine Colorless; Glucose,Urine (UA) 1+ (Negative); Ketones,Urine Negative (Negative); Leukocyte Esterase,Urine Negative (Negative); Nitrite,Urine Negative (Negative); Protein,Urine Trace (Negative); Specific Gravity,Urine 1.004 (1.001-1.035); Urobilinogen,Urine <2.0 mg/dL (<2.0)
[2020-03-27 21:39] LABS: Basophils # (A) 0.1 k/uL (0-0.2); Basophils % (A) 1 %; Eosinophils # (A) 0.2 k/uL (0-0.7); Eosinophils % (A) 1 %; HCT 36.6 % (34.0-46.0); HGB 12.4 gm/dL (11.4-16.0); Lymphocytes # (A) 1.3 k/uL (1.0-4.8); Lymphocytes % (A) 10 %; MCH 31.8 pg (25.0-35.0); MCHC 33.8 g/dL (31.0-37.0); Mean Platelet Volume 11.6; Monocytes # (A) 0.3 k/uL (0-1.0); Monocytes % (A) 2 %; Neutrophils # (A) 11.2 k/uL (1.3-7.7); Neutrophils % (A) 86 %; Platelet Count 171 k/uL (150-450); RDW 13.5 % (11.5-15.5)
--- NOTE | 2020-03-27 21:40 | XR ---
EXAMINATION: XR chest 1V portable DATE AND TIME: 03/27/2020 9:31 PM CLINICAL INDICATION: Dyspnea, cough, nausea; suspected COVID-19 pneumonia TECHNIQUE: AP portable upright COMPARISON: 12/31/2017 FINDINGS: Lungs: There are scattered ill-defined added opacities predominantly measuring 1 to 2 cm. These are b ilateral, greater on the left. In addition, there is a mild interstitial pattern bilaterally througho ut the lungs. The pleural spaces are negative. The cardiac silhouette is mildly enlarged. The remainder of the mediastinal silhouette is unremarkable. The skeletal structures and soft tissues are negative for acute findings. IMPRESSION: Radiographic findings can correlate with a clinical diagnosis of multifocal pneumonia.
[2020-03-27 21:53] LABS: D-Dimer 0.43 mg/L FEU (<0.60); INR 0.9 (<1.2); Partial Thromboplastin Time 23.5 sec (22.0-30.0); Prothrombin Time 9.4 sec (9.0-12.0)
[2020-03-27 21:55] LABS: ALT 12 U/L (4-34); AST 23 U/L (14-36); African American GFR (CKD) >90 (>60 ml/min/1.73 sqM); Alkaline Phosphatase 72 U/L (38-126); Anion Gap 5 mmol/L; Blood Urea Nitrogen 9 mg/dL (7-17); Calcium 8.1 mg/dL (8.4-10.2); Carbon Dioxide 22 mmol/L (22-30); Chloride 116 mmol/L (98-107); Glucose 148 mg/dL (74-99); LDH 873 U/L (313-618); Magnesium 1.6 mg/dL (1.6-2.3); Non-African American GFR(CKD) >90 (>60 ml/min/1.73 sqM); Potassium 2.9 mmol/L (3.5-5.1); Sodium 143 mmol/L (137-145); Total Bilirubin 0.3 mg/dL (0.2-1.3); Total Protein 5.3 g/dL (6.3-8.2)
[2020-03-27] MEDS ORDERED: POTASSIUM CHLORIDE 20 MEQ in WATER FOR INJECTION 1 100ML.BAG IVPB STA (22:06)
[2020-03-27] MEDS ORDERED: POTASSIUM CHLORIDE ER 20 MEQ TAB.ER PO STA (22:06)
[2020-03-27] MEDS ORDERED: NALOXONE 0.4 MG/ML 1 ML VIAL IV PRN (22:11)
[2020-03-27] MEDS ORDERED: POTASSIUM CHLORIDE 10 MEQ in WATER FOR INJECTION 1 100ML.BAG IVPB SCH (22:15)
[2020-03-27 22:16] LABS: C Reactive Protein 226.4 mg/L (<10.0)
[2020-03-27] MEDS ORDERED: POTASSIUM BICARBONATE/CIT AC 20 MEQ TABLET.EFF PO ONE (22:36)
[2020-03-27] MEDS ORDERED: IBUPROFEN 600 MG TAB PO STA (22:40)
[2020-03-27] MEDS ORDERED: AZITHROMYCIN 500 MG in SODIUM CHLORIDE 0.9% 250 ML IVPB STA (22:43)
[2020-03-27] MEDS: SODIUM CHLORIDE 0.9% 1,000 ML IV SCH (22:55)
[2020-03-27] MEDS: busPIRone HCl 10 MG TAB PO SCH (23:18)
[2020-03-27] MEDS: GABAPENTIN 300 MG CAP PO SCH (23:18)
[2020-03-27] MEDS: ATORVASTATIN 20 MG TAB PO SCH (23:21)
[2020-03-27] MEDS: QUEtiapine 25 MG TAB PO SCH (23:23)
[2020-03-27] MEDS: DULoxetine HCL 30 MG CAPSULE.DR PO SCH (23:23)
[2020-03-28] MEDS ORDERED: ALBUTEROL NEBULIZED 2.5 MG/3 ML INHALATION SCH
[2020-03-28] MEDS: ALBUTEROL HFA INHALER INHALATION SCH ×7 (00:02→19:15)
[2020-03-28] MEDS: HYDROcodone/APAP 5-325MG 1 EACH TAB PO PRN ×2 (02:54→16:50)
[2020-03-28 03:58] LABS: Ferritin 121.1 ng/mL (10.0-291.0)
[2020-03-28] MEDS: ACETAMINOPHEN TAB 325 MG TAB PO PRN ×2 (05:26→12:31)
[2020-03-28] MEDS: LEVOTHYROXINE 100 MCG TAB PO SCH (06:22)
[2020-03-28] MEDS ORDERED: PANTOPRAZOLE 40 MG TABLET PO SCH (07:30)
[2020-03-28 08:30] LABS: Basophils # (A) 0.1 k/uL (0-0.2); Basophils % (A) 0 %; Eosinophils # (A) 0.3 k/uL (0-0.7); Eosinophils % (A) 2 %; HCT 35.1 % (34.0-46.0); HGB 11.8 gm/dL (11.4-16.0); Lymphocytes % (A) 22 %; MCHC 33.5 g/dL (31.0-37.0); MCV 95.5 fL (80.0-100.0); Mean Platelet Volume 11.3; Monocytes # (A) 0.3 k/uL (0-1.0); Monocytes % (A) 2 %; Neutrophils # (A) 10.2 k/uL (1.3-7.7); Neutrophils % (A) 73 %; Platelet Count 172 k/uL (150-450); RBC 3.68 m/uL (3.80-5.40); RDW 13.5 % (11.5-15.5)
[2020-03-28 09:01] LABS: African American GFR (CKD) >90 (>60 ml/min/1.73 sqM); Anion Gap 4 mmol/L; Blood Urea Nitrogen 11 mg/dL (7-17); Calcium 7.5 mg/dL (8.4-10.2); Carbon Dioxide 25 mmol/L (22-30); Chloride 114 mmol/L (98-107); Glucose 108 mg/dL (74-99); Non-African American GFR(CKD) >90 (>60 ml/min/1.73 sqM); Potassium 3.3 mmol/L (3.5-5.1); Sodium 143 mmol/L (137-145)
[2020-03-28] MEDS: SODIUM CHLORIDE 0.9% 1,000 ML IV SCH ×2 (09:52→16:49)
[2020-03-28] MEDS: busPIRone HCl 10 MG TAB PO SCH ×2 (09:53→20:29)
[2020-03-28] MEDS: FLUTICASONE 50MCG/SPRAY NASAL 16GM EA NOSTRIL SCH (09:53)
[2020-03-28] MEDS: GABAPENTIN 300 MG CAP PO SCH ×3 (09:53→21:15)
[2020-03-28] MEDS: DULoxetine HCL 30 MG CAPSULE.DR PO SCH ×2 (09:53→20:30)
[2020-03-28] MEDS: tiZANidine 4 MG TAB PO PRN (10:48)
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
[2020-03-28] MEDS: ASCORBIC ACID 500 MG TAB PO SCH (16:49)
[2020-03-28] MEDS: ENOXAPARIN 40 MG/0.4 ML SYRINGE SQ SCH (16:49)
[2020-03-28] MEDS: CHOLECALCIFEROL 1,000 UNIT TAB PO SCH (16:50)
[2020-03-28] MEDS: FAMOTIDINE 20 MG TAB PO SCH (16:51)
[2020-03-28] MEDS: ZINC SULFATE 220 MG CAP PO SCH (16:51)
[2020-03-28] MEDS ORDERED: REMDESIVIR (EUA) 200 MG in SODIUM CHLORIDE 0.9% 250 ML IVPB ONE (17:00)
[2020-03-28] MEDS: QUEtiapine 25 MG TAB PO SCH (20:29)
[2020-03-28] MEDS: ATORVASTATIN 20 MG TAB PO SCH (20:29)
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
[2020-03-28] MEDS: methylPREDNISolone SOD SUCCI 40 MG/ML 1 ML VIAL IV SCH (21:15)
[2020-03-28] MEDS: MELATONIN 3 MG TABLET PO SCH (21:15)
[2020-03-29] MEDS: ALBUTEROL HFA INHALER INHALATION SCH ×6 (00:35→20:44)
[2020-03-29] MEDS: ACETAMINOPHEN TAB 325 MG TAB PO PRN (01:03)
[2020-03-29] MEDS: tiZANidine 4 MG TAB PO PRN (04:17)
[2020-03-29] MEDS: SODIUM CHLORIDE 0.9% 1,000 ML IV SCH ×4 (05:03→21:16)
[2020-03-29] MEDS: HYDROcodone/APAP 5-325MG 1 EACH TAB PO PRN ×2 (05:30→10:26)
[2020-03-29] MEDS: methylPREDNISolone SOD SUCCI 40 MG/ML 1 ML VIAL IV SCH ×2 (05:30→12:48)
[2020-03-29] MEDS: LEVOTHYROXINE 100 MCG TAB PO SCH (07:22)
[2020-03-29] MEDS: busPIRone HCl 10 MG TAB PO SCH ×2 (10:26→21:16)
[2020-03-29] MEDS: FAMOTIDINE 20 MG TAB PO SCH (10:26)
[2020-03-29] MEDS: DULoxetine HCL 30 MG CAPSULE.DR PO SCH ×2 (10:26→21:15)
[2020-03-29] MEDS: CHOLECALCIFEROL 1,000 UNIT TAB PO SCH (10:26)
[2020-03-29] MEDS: GABAPENTIN 300 MG CAP PO SCH ×3 (10:27→21:15)
[2020-03-29] MEDS: ASCORBIC ACID 500 MG TAB PO SCH (10:27)
[2020-03-29] MEDS: ENOXAPARIN 40 MG/0.4 ML SYRINGE SQ SCH ×2 (10:29→21:15)
[2020-03-29] MEDS: ZINC SULFATE 220 MG CAP PO SCH (10:32)
[2020-03-29] MEDS: FLUTICASONE 50MCG/SPRAY NASAL 16GM EA NOSTRIL SCH (10:32)
[2020-03-29 11:41] LABS: C Reactive Protein 29.7 mg/dL (0.0-0.8)
--- NOTE | 2020-03-29 12:13 | P.PN ---
Subjective Progress Note Date: 03/29/20 Principal diagnosis: CoVID 19 pneumonitis suspected This is a pleasant 49-year-old female patient who follows with Dr. Desai as her primary care provider. She has a history of hypothyroidism, hyperlipidemia, fibromyalgia, multiple sclerosis, GERD, chronic pain, chronic tobacco d ependence, marijuana use. She presented here to the emergency room yesterday with complaints of increasing shortness of breath cough and congestion. She was seen at [facility] on 03/22/2020 for similar symptoms and diagnosed with pneumonia however she left AGAINST MEDICAL ADVICE. She was on antibiotics without much improvement. Presenting temperature 103.0. Chest x-ray does reveal scattered ill-defined opacities bilaterally with a mild interstitial pattern. She is seen in consultation on the regular medical floor. She is currently sitting up in bed. Awake and alert in no acute distress. Just a loose nonproductive cough. No fever chills or night sweats. White count 14.0. Hemoglobin 11.8. Lymphocytes 3.0. D-dimer 0.4. Pseudogout 0.43. Potassium 3.3. Creatinine 0.69. LDH 873. C-reactive protein 226. Pro-calcitonin 0.22. Influenza screen negative. CoVID 19 screen is pending. The patient is seen today 03/29/2020 in follow-up on the regular medical floor. She is awake and alert in no acute distress. She is still quite dyspneic with minimal exertion. Continues with a loose nonproductive cough. Sore throat. She is maintaining O2 saturations in the 90s on 2 L/m per nasal cannula. Afebrile. Hemodynamically stable. D-dimer 0.66. LDH 379. C-reactive protein 29.7. Covid 19 screen is still pending. This is day 2 of Remdesivir. Objective - Vital Signs Vital signs: Vital Signs Temp 98.5 F 03/29/20 11:43 Pulse 70 03/29/20 11:43 Resp 16 03/29/20 11:43 BP 112/71 03/29/20 11:43 Pulse Ox 94 L 03/29/20 11:43 Intake & Output 03/28/20 03/29/20 03/29/20 18:59 06:59 18:59 Intake Total 480 1524 Balance 480 1524 Weight 68.039 kg Intake: Intake, IV Titration 1024 Amount Sodium Chloride 0.9% 1, 1024 000 ml @ 130 mls/hr IV . Q7H42M [facility] Rx#:[id number] Oral 480 500 Other: Voiding Method Toilet Toilet Toilet - Exam GENERAL EXAM: Alert, pleasant 49-year-old female patient, on 2 L/m per nasal cannula, comfortable in no apparent distress. HEAD: Normocephalic. EYES: Normal reaction of pupils, equal size. NOSE: Clear with pink turbinates. THROAT: Positive erythema no exudates. NECK: No masses, no JVD. CHEST: No chest wall deformity. LUNGS: Equal air entry with bilateral scattered rhonchi. CVS: S1 and S2 normal with no audible murmur, regular rhythm. ABDOMEN: No hepatosplenomegaly, normal bowel sounds, no guarding or rigidity. SPINE: No scoliosis or deformity SKIN: No rashes CENTRAL NERVOUS SYSTEM: No focal deficits, tone is normal in all 4 extremities. EXTREMITIES: There is no peripheral edema. No clubbing, no cyanosis. Peripheral pulses are intact. - Labs CBC & Chem 7: 03/28/20 08:02 03/28/20 08:02 Labs: Abnormal Lab Results - Last 24 Hours (Table) 03/29/20 03/29/20 Range/Units 06:58 06:58 D-Dimer 0.66 H (<0.60) mg/L FEU Lactate Dehydrogenase 379 H (120-246) U/L C-Reactive Protein 29.7 H (0.0-0.8) mg/dL Microbiology - Last 24 Hours (Table) 03/27/20 21:20 Blood Culture - Preliminary Blood No Growth after 24 hours Assessment and Plan Assessment: 1 Acute hypoxic respiratory failure secondary to suspected CoVID 19 pneumonitis. Initiated on Remdesivir 03/28/2020 2 Elevated inflammatory markers secondary to above 3 Febrile illness secondary to above 4 Multiple sclerosis 5 Fibromyalgia 6 Chronic pain 7 Current tobacco dependence 8 Marijuana use. 9 Hyperlipidemia. 10 Hypothyroidism 11 Seizure disorder Plan: The patient was seen and evaluated by Dr. Silva Continue Remdesivir Continue Lovenox, dexamethasone, Pepcid, zinc, vitamin C, vitamin D Continue isolation precautions Cepacol lozenges for sore throat We'll continue to follow I, the cosigning physician, performed a history & physical examination of the patient. Lungs sounds with bilateral scattered rhonchi. Maintaining good O2 saturations in the 90s on 2 L/m per nasal cannula. I discussed the assessment and plan of care with my nurse practitioner, Nohelia Matthews. I attest to the above note as dictated by her.
[2020-03-29] MEDS: BUTALB/APAP/CAFF 50-325-40MG TAB PO PRN (16:23)
[2020-03-29] MEDS: REMDESIVIR (EUA) 100 MG in SODIUM CHLORIDE 0.9% 250 ML IVPB SCH (17:06)
[2020-03-29] MEDS: DEXAMETHASONE SOD PHOSPHATE 10 MG/ML 1 ML VIAL IV SCH (19:35)
[2020-03-29] MEDS: CALCIUM CARB-VIT D 500MG-200UN 1 EACH TAB PO SCH (19:35)
--- NOTE | 2020-03-29 19:50 | PN ---
PROGRESS NOTE DATE OF SERVICE: 03/29/2020 I am covering for Dr. Valverde. This 49-year-old woman who was admitted with bilateral pneumonia was suspected of COVID- [address] Silva suspected COVID-19 and Remdesivir was initiated. The most recent chest x-ray which was reviewed by me personally showed significant bilateral lesions. PAST MEDICAL HISTORY: Reviewed. REVIEW OF SYSTEMS: CARDIOVASCULAR SYSTEM: As mentioned earlier. RESPIRATORY: As mentioned earlier. GI: As mentioned earlier. : No dysuria.\ NERVOUS SYSTEM: No numbness or weakness. CURRENT MEDICATIONS: Reviewed include Tylenol, Fioricet, [place], Ventolin, vitamin C, Lipitor, Cepacol, vitamin D3, Cymbalta, Lovenox, Pepcid, Solu-Medrol, melatonin, Narcan, Zanaflex, oral zinc. PHYSICAL EXAMINATION: Alert and oriented x3. Pulse 70, blood pressure is 112/70, respirations 16, temperature 98.2, pulse ox 94% on room air. HEENT: Conjunctivae normal. Oral mucosa moist. NECK: No jugular venous distention. No lymph node enlargement. CARDIOVASCULAR: S1, S2, muffled. No S3, no S4, RESPIRATORY: Diminished breath sounds at the bases. Bilateral scattered rhonchi and crackles. ABDOMEN: Soft, nontender. LEGS: No edema, no swelling. NERVOUS SYSTEM: No focal motor or sensory deficits. LABS: WBC 14, hemoglobin 11.8, sodium 143, potassium 3.3, LDH is 397 and C-reactive protein is ( ). ASSESSMENT: 1. Bilateral pneumonia with acute COVID-19 pneumonia interstitial pneumonia with possible sepsis, present on admission. 2. Acute hypoxic respiratory failure from pneumonia. 3. Chronic obstructive pulmonary disease acute exacerbation. 4. History of nicotine dependence. 5. Chronic fibromyalgia. 6. Hyperlipidemia. 7. Hypertension. 8. Remitting and relapsing multiple sclerosis. 9. Depression, not otherwise specified. 10.Hypokalemia. 11.Elevated LDH and CRP inflammatory markers, COVID-19. 12.Elevated procalcitonin. 13.Elevated D-dimer. 14.Increased WBC. RECOMMENDATIONS AND DISCUSSION: In this 49-year-old woman who presented with multiple complex medical issues, at this time I recommend to continue the current management and symptomatic treatment. Otherwise, continue with Remdesivir. Continue with empiric antibiotics. I would also recommend a CT angio of the chest and repeat labs also. Dr. Silva is following the patient closely. Further recommendations to follow. We will cut down the IV fluids. [id number] / IJN: [id number] /
[2020-03-29] MEDS ORDERED: HYDROmorphone 0.5 MG/0.5 ML SYRINGE IVP PRN (20:09)
--- NOTE | 2020-03-29 20:58 | CT ---
EXAMINATION TYPE: CT angio chest DATE OF EXAM: 03/29/2020 COMPARISON: 12/27/2017 HISTORY: Cough and elevated d-dimer. CT DLP: 283.1 mGycm Automated exposure control for dose reduction was used. CONTRAST: Performed with IV Contrast, patient injected with 42ml mL of Isovue 370. There are 3-D post processed images. There is extensive patchy interstitial infiltrates throughout the lungs. There is groundglass interst itial density. There are cystic changes. There are small bilateral pleural effusions. There are bilat eral multiple enlarged bronchial lymph nodes up to 1.5 cm. There are mediastinal enlarged lymph nodes up to 2 cm. There is lobulated enlargement of the thyroid gland consistent with multinodular goiter. Thoracic aorta is intact. There is no aneurysm or dissection. I see no filling defects in the pulmona ry arteries. Heart size is normal. There is no pericardial effusion. There is 30% anterior wedging of L1 vertebral body. IMPRESSION: No evidence of pulmonary embolism. Pleural effusions with mediastinal and bronchial adenopathy. Exten sive interstitial lung disease. This could relate to sarcoidosis. Lung disease overall not significan tly different than old exam. L1 compression fracture unchanged. Adenopathy unchanged.
[2020-03-29] MEDS: ATORVASTATIN 20 MG TAB PO SCH (21:15)
[2020-03-29] MEDS: QUEtiapine 25 MG TAB PO SCH (21:15)
[2020-03-29] MEDS: MELATONIN 3 MG TABLET PO SCH (21:15)
[2020-03-30] MEDS: ALBUTEROL HFA INHALER INHALATION SCH ×7 (00:46→23:55)
[2020-03-30] MEDS: BUTALB/APAP/CAFF 50-325-40MG TAB PO PRN (03:58)
[2020-03-30] MEDS: HYDROcodone/APAP 5-325MG 1 EACH TAB PO PRN ×2 (05:14→09:16)
[2020-03-30] MEDS: LEVOTHYROXINE 100 MCG TAB PO SCH (05:14)
[2020-03-30 06:44] LABS: Basophils % (A) 0 %; Eosinophils # (A) 0.1 k/uL (0-0.7); Eosinophils % (A) 1 %; HCT 30.9 % (34.0-46.0); HGB 10.1 gm/dL (11.4-16.0); Lymphocytes # (A) 2.1 k/uL (1.0-4.8); Lymphocytes % (A) 20 %; MCH 31.4 pg (25.0-35.0); MCHC 32.9 g/dL (31.0-37.0); MCV 95.7 fL (80.0-100.0); Mean Platelet Volume 11.1; Monocytes # (A) 0.3 k/uL (0-1.0); Monocytes % (A) 3 %; Neutrophils # (A) 8.1 k/uL (1.3-7.7); Neutrophils % (A) 75 %; Platelet Count 199 k/uL (150-450); RBC 3.23 m/uL (3.80-5.40); RDW 13.6 % (11.5-15.5); WBC 10.7 k/uL (3.8-10.6)
--- NOTE | 2020-03-30 07:33 | XR ---
EXAMINATION TYPE: XR chest 1V portable DATE OF EXAM: 03/30/2020 COMPARISON: 03/27/2020 HISTORY: Covid TECHNIQUE: Single frontal view of the chest is obtained. FINDINGS: Diffuse mixed infiltrates persist interval progression noted. Progress studies are advised. The cardiac silhouette size is within normal limits. The osseous structures are intact. IMPRESSION: 1. Diffuse mixed infiltrates persist interval progression noted. Progress studies are advised.
[2020-03-30] MEDS: busPIRone HCl 10 MG TAB PO SCH ×2 (09:16→20:45)
[2020-03-30] MEDS: GABAPENTIN 300 MG CAP PO SCH ×3 (09:17→22:46)
[2020-03-30] MEDS: BENZOCAINE/MENTHOL LOZENG 1 EACH LOZENGE MUCOUS MEM PRN (09:17)
[2020-03-30] MEDS: ZINC SULFATE 220 MG CAP PO SCH (09:17)
[2020-03-30] MEDS: FAMOTIDINE 20 MG TAB PO SCH (09:18)
[2020-03-30] MEDS: DULoxetine HCL 30 MG CAPSULE.DR PO SCH ×2 (09:18→20:45)
[2020-03-30] MEDS: CALCIUM CARB-VIT D 500MG-200UN 1 EACH TAB PO SCH ×2 (09:18→17:56)
[2020-03-30] MEDS: ASCORBIC ACID 500 MG TAB PO SCH (09:18)
[2020-03-30] MEDS: DEXAMETHASONE SOD PHOSPHATE 10 MG/ML 1 ML VIAL IV SCH (09:18)
[2020-03-30] MEDS: CHOLECALCIFEROL 1,000 UNIT TAB PO SCH (09:18)
[2020-03-30] MEDS: ENOXAPARIN 40 MG/0.4 ML SYRINGE SQ SCH ×2 (09:19→20:45)
[2020-03-30] MEDS: FLUTICASONE 50MCG/SPRAY NASAL 16GM EA NOSTRIL SCH (09:19)
[2020-03-30 09:23] LABS: African American GFR (CKD) 125.8 (60.0-200.0); Anion Gap 6.7 mmol/L (4.00-12.00); Calcium 7.7 mg/dL (8.7-10.3); Carbon Dioxide 24.3 mmol/L (21.6-31.8); Non-African American GFR(CKD) 108.5 (60.0-200.0); Potassium 3.1 mmol/L (3.5-5.5)
[2020-03-30] MEDS ORDERED: Magnesium Replacement Protocol 1 EACH MISC MISCELLANE PRN (10:17)
[2020-03-30] MEDS ORDERED: Potassium Replacement Protocol 1 EACH MISC MISCELLANE PRN ×2 (10:17→12:18)
[2020-03-30] MEDS ORDERED: METHYL SALICYLATE/MENTHOL CREAM 5 OZ TOPICAL PRN (11:54)
[2020-03-30] MEDS: POTASSIUM CHLORIDE ER 20 MEQ TAB.ER PO SCH (13:02)
[2020-03-30] MEDS: HYDROcodone/APAP 7.5-325MG 1 EACH TAB PO PRN ×2 (13:02→17:53)
--- NOTE | 2020-03-30 13:26 | P.PN ---
Subjective Progress Note Date: 03/30/20 Principal diagnosis: CoVID 19 pneumonitis suspected This is a pleasant 49-year-old female patient who follows with Dr. Desai as her primary care provider. She has a history of hypothyroidism, hyperlipidemia, fibromyalgia, multiple sclerosis, GERD, chronic pain, chronic tobacco d ependence, marijuana use. She presented here to the emergency room yesterday with complaints of increasing shortness of breath cough and congestion. She was seen at [facility] on 03/22/2020 for similar symptoms and diagnosed with pneumonia however she left AGAINST MEDICAL ADVICE. She was on antibiotics without much improvement. Presenting temperature 103.0. Chest x-ray does reveal scattered ill-defined opacities bilaterally with a mild interstitial pattern. She is seen in consultation on the regular medical floor. She is currently sitting up in bed. Awake and alert in no acute distress. Just a loose nonproductive cough. No fever chills or night sweats. White count 14.0. Hemoglobin 11.8. Lymphocytes 3.0. D-dimer 0.4. Pseudogout 0.43. Potassium 3.3. Creatinine 0.69. LDH 873. C-reactive protein 226. Pro-calcitonin 0.22. Influenza screen negative. CoVID 19 screen is pending. The patient is seen today 03/29/2020 in follow-up on the regular medical floor. She is awake and alert in no acute distress. She is still quite dyspneic with minimal exertion. Continues with a loose nonproductive cough. Sore throat. She is maintaining O2 saturations in the 90s on 2 L/m per nasal cannula. Afebrile. Hemodynamically stable. D-dimer 0.66. LDH 379. C-reactive protein 29.7. Covid 19 screen is still pending. This is day 2 of Remdesivir. The patient is seen today 03/30/2020 follow-up on the regular medical floor. She is awake and alert in no acute distress. O2 saturations in the low 90s on 3 L/m per nasal cannula. She continues with a loose nonproductive cough. Temp 99.4. Hemodynamically stable. White count 10.7. Hemoglobin 10.1. Sodium 144. Potassium 3.1. Creatinine 0.6. This is day 3 of Remdesivir. Continued on Decadron, Lovenox, vitamin C, vitamin D, melatonin, zinc. Chest x-ray continues to show diffuse mixed infiltrates bilaterally. Objective - Vital Signs Vital signs: Vital Signs Temp 99.4 F 03/30/20 11:58 Pulse 65 03/30/20 11:58 Resp 18 03/30/20 11:58 BP 126/79 03/30/20 11:58 Pulse Ox 92 L 03/30/20 11:58 Intake & Output 03/29/20 03/30/20 03/30/20 18:59 06:59 18:59 Intake Total 1040 1280 Balance 1040 1280 Intake: Intake, IV Titration 1040 80 Amount Sodium Chloride 0.9% 1, 1040 80 000 ml @ 20 mls/hr IV . Q24H [facility] Rx#:[id number] Oral 1200 Other: Voiding Method Toilet Toilet Toilet # Voids 1 - Exam GENERAL EXAM: Alert, pleasant 49-year-old female patient, on 3 L/m per nasal cannula, comfortable in no apparent distress. HEAD: Normocephalic. EYES: Normal reaction of pupils, equal size. NOSE: Clear with pink turbinates. THROAT: Positive erythema no exudates. NECK: No masses, no JVD. CHEST: No chest wall deformity. LUNGS: Equal air entry with bilateral scattered rhonchi. CVS: S1 and S2 normal with no audible murmur, regular rhythm. ABDOMEN: No hepatosplenomegaly, normal bowel sounds, no guarding or rigidity. SPINE: No scoliosis or deformity SKIN: No rashes CENTRAL NERVOUS SYSTEM: No focal deficits, tone is normal in all 4 extremities. EXTREMITIES: There is no peripheral edema. No clubbing, no cyanosis. Peripheral pulses are intact. - Labs CBC & Chem 7: 03/30/20 06:26 03/30/20 06:26 Labs: Abnormal Lab Results - Last 24 Hours (Table) 03/30/20 03/30/20 Range/Units 06:26 06:26 WBC 10.7 H (3.8-10.6) k/uL RBC 3.23 L (3.80-5.40) m/uL Hgb 10.1 L (11.4-16.0) gm/dL Hct 30.9 L (34.0-46.0) % Neutrophils # 8.1 H (1.3-7.7) k/uL Potassium 3.1 L (3.5-5.5) mmol/L Chloride 113 H (96-109) mmol/L Glucose 121 H (70-110) mg/dL Calcium 7.7 L (8.7-10.3) mg/dL Microbiology - Last 24 Hours (Table) 03/27/20 21:20 Blood Culture - Preliminary Blood No Growth after 48 hours Assessment and Plan Assessment: 1 Acute hypoxic respiratory failure secondary to suspected CoVID 19 pneumonitis. Initiated on Remdesivir 03/28/2020 2 Elevated inflammatory markers secondary to above 3 Febrile illness secondary to above 4 Multiple sclerosis 5 Fibromyalgia 6 Chronic pain 7 Current tobacco dependence 8 Marijuana use. 9 Hyperlipidemia. 10 Hypothyroidism 11 Seizure disorder Plan: The patient was seen and evaluated by Dr. Silva Chest x-ray and labs reviewed Continue Remdesivir Continue Lovenox, dexamethasone, Pepcid, zinc, vitamin C, vitamin D Continue isolation precautions We'll continue to follow I, the cosigning physician, performed a history & physical examination of the patient. Lungs sounds with bilateral scattered rhonchi. Maintaining good O2 saturations in the 90s on 2 L/m per nasal cannula. I discussed the assessment and plan of care with my nurse practitioner, Nohelia Matthews. I attest to the above note as dictated by her.
[2020-03-30] MEDS: REMDESIVIR (EUA) 100 MG in SODIUM CHLORIDE 0.9% 250 ML IVPB SCH (17:56)
[2020-03-30] MEDS: QUEtiapine 25 MG TAB PO SCH (20:45)
[2020-03-30] MEDS: ATORVASTATIN 20 MG TAB PO SCH (20:45)
[2020-03-30] MEDS: MELATONIN 3 MG TABLET PO SCH (20:45)
[2020-03-30] MEDS: SODIUM CHLORIDE 0.9% 1,000 ML IV SCH (21:08)
[2020-03-30] MEDS: POTASSIUM BICARBONATE/CIT AC 20 MEQ TABLET.EFF NG-TUBE SCH ×2 (22:46→23:48)
[2020-03-31] MEDS: HYDROcodone/APAP 7.5-325MG 1 EACH TAB PO PRN ×3 (00:03→17:53)
--- NOTE | 2020-03-31 01:26 | PN ---
PROGRESS NOTE DATE OF SERVICE: 03/30/2020 I am covering for Dr. Valverde. This 49-year-old woman was admitted with bilateral pneumonia with COVID-19. The patient is significantly short of breath. The patient also complaining of severe back pain also. The patient is started on remdesivir yesterday. Multiple consultants are following the patient closely. The most recent chest x-ray which was done today which was reviewed personally by me showed significant bilateral lesions, right more than the left. The patient continues to be hypoxic. PAST MEDICAL HISTORY: Reviewed. REVIEW OF SYSTEMS: CARDIOVASCULAR SYSTEM: No angina. RESPIRATORY SYSTEM: As mentioned earlier. GI: As mentioned earlier. : No dysuria. NERVOUS SYSTEM: No numbness or weakness. CURRENT MEDICATIONS: Current medications are reviewed and include Tylenol, Fioricet, [place], vitamin C, Lipitor; Cepacol, BuSpar, Proscar, Vitamin D, dexamethasone, Pepcid, Lovenox, Neurontin, Synthroid, replacement protocols, remdesivir. PHYSICAL EXAMINATION: Patient is alert and oriented x3. Pulse 65, blood pressure 126/79, respiration 18, temperature 99.4, pulse ox 92% on 3 L. HEENT: Conjunctivae normal. Oral mucosa moist. NECK: No jugular venous distention. CARDIOVASCULAR: S1, S2 muffled. RESPIRATORY: A few scattered rhonchi and crackles. ABDOMEN: Soft, nontender. NERVOUS SYSTEM: No focal deficits. LABS: WBC 10.7, hemoglobin 10.1. Sodium 144, potassium 3.1. C-reactive protein is 29.7. ASSESSMENT: 1. Bilateral pneumonia, interstitial pneumonia, right more than the left with acute COVID-19 pneumonia with possible sepsis and acute hypoxic respiratory failure. 2. On remdesivir. 3. Chronic obstructive pulmonary disease acute exacerbation. 4. History of nicotine dependence. 5. Acute on chronic fibromyalgia. 6. Hyperlipidemia. 7. Hypertension. 8. Remitting relapsing multiple sclerosis. 9. Depression, not otherwise specified. 10.Hypokalemia. 11.Elevated LDH and CRP inflammatory markers COVID-19. 12.Elevated procalcitonin. 13.Elevated D-dimer. 14.Increased WBC. RECOMMENDATIONS AND DISCUSSION: Recommend to continue current medications, continue with monitoring and symptomatic treatment. Otherwise, at this time I would recommend continue with potassium supplementation. Continue rest of medications. Some other findings may be shared because of the COVID-19. Otherwise once again the prognosis guarded and discussed with the patient. Further recommendations to follow. MMODL / IJN: [id number] /
[2020-03-31] MEDS: BUTALB/APAP/CAFF 50-325-40MG TAB PO PRN (02:55)
[2020-03-31] MEDS: BENZOCAINE/MENTHOL LOZENG 1 EACH LOZENGE MUCOUS MEM PRN (02:55)
[2020-03-31] MEDS: ALBUTEROL HFA INHALER INHALATION SCH ×5 (04:34→20:02)
[2020-03-31] MEDS: LEVOTHYROXINE 100 MCG TAB PO SCH (05:45)
[2020-03-31 06:20] LABS: Basophils % (A) 0 %; Eosinophils # (A) 0.2 k/uL (0-0.7); Eosinophils % (A) 2 %; HCT 30.6 % (34.0-46.0); HGB 10.3 gm/dL (11.4-16.0); Lymphocytes % (A) 35 %; MCH 31.8 pg (25.0-35.0); MCHC 33.7 g/dL (31.0-37.0); MCV 94.3 fL (80.0-100.0); Monocytes # (A) 0.4 k/uL (0-1.0); Monocytes % (A) 5 %; Neutrophils # (A) 4.7 k/uL (1.3-7.7); Neutrophils % (A) 56 %; Platelet Count 217 k/uL (150-450); RBC 3.24 m/uL (3.80-5.40); RDW 13.6 % (11.5-15.5); WBC 8.4 k/uL (3.8-10.6)
[2020-03-31] MEDS: ASCORBIC ACID 500 MG TAB PO SCH (08:50)
[2020-03-31] MEDS: DEXAMETHASONE SOD PHOSPHATE 10 MG/ML 1 ML VIAL IV SCH (08:50)
[2020-03-31] MEDS: FAMOTIDINE 20 MG TAB PO SCH (08:50)
[2020-03-31] MEDS: busPIRone HCl 10 MG TAB PO SCH ×2 (08:50→21:23)
[2020-03-31] MEDS: CALCIUM CARB-VIT D 500MG-200UN 1 EACH TAB PO SCH ×2 (08:50→17:53)
[2020-03-31] MEDS: DULoxetine HCL 30 MG CAPSULE.DR PO SCH ×2 (08:50→21:23)
[2020-03-31] MEDS: GABAPENTIN 300 MG CAP PO SCH ×3 (08:50→21:23)
[2020-03-31] MEDS: CHOLECALCIFEROL 1,000 UNIT TAB PO SCH (08:50)
[2020-03-31] MEDS: ENOXAPARIN 40 MG/0.4 ML SYRINGE SQ SCH ×2 (08:52→21:23)
[2020-03-31] MEDS: ZINC SULFATE 220 MG CAP PO SCH (09:18)
[2020-03-31] MEDS: FLUTICASONE 50MCG/SPRAY NASAL 16GM EA NOSTRIL SCH (09:20)
[2020-03-31 10:58] LABS: African American GFR (CKD) 125.8 (60.0-200.0); Anion Gap 8.4 mmol/L (4.00-12.00); BUN/Creat Ratio 23.33 Ratio (12.00-20.00); Calcium 7.6 mg/dL (8.7-10.3); Carbon Dioxide 25.6 mmol/L (21.6-31.8); Magnesium 1.6 mg/dL (1.5-2.4); Non-African American GFR(CKD) 108.5 (60.0-200.0); Potassium 3.4 mmol/L (3.5-5.5)
--- NOTE | 2020-03-31 11:29 | XR ---
EXAMINATION TYPE: XR chest 1V portable DATE OF EXAM: 03/31/2020 COMPARISON: 03/30/2020 HISTORY: Shortness of breath TECHNIQUE: Single frontal view of the chest is obtained. FINDINGS: There are reticulonodular perihilar and basilar infiltrates as well as within the right upper lobe sl ightly improved since the prior study. I cannot exclude underlying Covid 19 pneumonia. The cardiac silhouette size is within normal limits. The osseous structures are intact. IMPRESSION: 1. There are reticulonodular perihilar and basilar infiltrates as well as within the right upper lob e slightly improved since the prior study. I cannot exclude underlying Covid 19 pneumonia.
[2020-03-31] MEDS: POTASSIUM BICARBONATE/CIT AC 20 MEQ TABLET.EFF PO SCH ×2 (12:45→15:55)
--- NOTE | 2020-03-31 15:23 | P.PN ---
Subjective Progress Note Date: 03/31/20 Principal diagnosis: Suspected COVID 19 pneumonitis This is a pleasant 49-year-old female patient who follows with Dr. Desai as her primary care provider. She has a history of hypothyroidism, hyperlipidemia, fibromyalgia, multiple sclerosis, GERD, chronic pain, chronic tobacco d ependence, marijuana use. She presented here to the emergency room yesterday with complaints of increasing shortness of breath cough and congestion. She was seen at [facility] on 03/22/2020 for similar symptoms and diagnosed with pneumonia however she left AGAINST MEDICAL ADVICE. She was on antibiotics without much improvement. Presenting temperature 103.0. Chest x-ray does reveal scattered ill-defined opacities bilaterally with a mild interstitial pattern. She is seen in consultation on the regular medical floor. She is currently sitting up in bed. Awake and alert in no acute distress. Just a loose nonproductive cough. No fever chills or night sweats. White count 14.0. Hemoglobin 11.8. Lymphocytes 3.0. D-dimer 0.4. Pseudogout 0.43. Potassium 3.3. Creatinine 0.69. LDH 873. C-reactive protein 226. Pro-calcitonin 0.22. Influenza screen negative. CoVID 19 screen is pending. The patient is seen today 03/29/2020 in follow-up on the regular medical floor. She is awake and alert in no acute distress. She is still quite dyspneic with minimal exertion. Continues with a loose nonproductive cough. Sore throat. She is maintaining O2 saturations in the 90s on 2 L/m per nasal cannula. Afebrile. Hemodynamically stable. D-dimer 0.66. LDH 379. C-reactive protein 29.7. Covid 19 screen is still pending. This is day 2 of Remdesivir. The patient is seen today 03/30/2020 follow-up on the regular medical floor. She is awake and alert in no acute distress. O2 saturations in the low 90s on 3 L/m per nasal cannula. She continues with a loose nonproductive cough. Temp 99.4. Hemodynamically stable. White count 10.7. Hemoglobin 10.1. Sodium 144. Potassium 3.1. Creatinine 0.6. This is day 3 of Remdesivir. Continued on Decadron, Lovenox, vitamin C, vitamin D, melatonin, zinc. Chest x-ray continues to show diffuse mixed infiltrates bilaterally. On 03/31/2020 patient seen in follow-up on the general medical surgical floor, she remains on 3 L of oxygen a pulse ox of 97-98%, monocytes have been stable, she's been afebrile, does get short of breath with activity, seems to be breathing comfortably at rest. Covid 19 PCR is still pending at this time, patient was started on Remdesivir, day #5 Objective - Vital Signs Vital signs: Vital Signs Temp 98.7 F 03/31/20 12:50 Pulse 63 03/31/20 12:50 Resp 18 03/31/20 12:50 BP 113/65 03/31/20 12:50 Pulse Ox 97 03/31/20 12:50 Intake & Output 03/30/20 03/31/20 03/31/20 18:59 06:59 18:59 Intake Total 1000 1440 Balance 1000 1440 Intake: Oral 1000 1440 Other: Voiding Method Toilet Toilet Toilet # Voids 2 1 # Bowel Movements 0 - Exam GENERAL EXAM: Alert, very pleasant, 49-year-old white female, 3 L of oxygen with pulse ox of 97%, sitting up on the edge of the bed, in no acute distress, comfortable in no apparent distress. HEAD: Normocephalic/atraumatic. EYES: Normal reaction of pupils, equal size. Conjunctiva pink, sclera white. NOSE: Clear with pink turbinates. THROAT: No erythema or exudates. NECK: No masses, no JVD, no thyroid enlargement, no adenopathy. CHEST: No chest wall deformity. Symmetrical expansion. LUNGS: Equal air entry with no crackles, wheeze, rhonchi or dullness. CVS: Regular rate and rhythm, normal S1 and S2, no gallops, no murmurs, no rubs ABDOMEN: Soft, nontender. No hepatosplenomegaly, normal bowel sounds, no guarding or rigidity. EXTREMITIES: No clubbing, no edema, no cyanosis, 2+ pulses and upper and lower extremities. MUSCULOSKELETAL: Muscle strength and tone normal. SPINE: No scoliosis or deformity SKIN: No rashes CENTRAL NERVOUS SYSTEM: Alert and oriented -3. No focal deficits, tone is normal in all 4 extremities. PSYCHIATRIC: Alert and oriented -3. Appropriate affect. Intact judgment and insight. - Labs CBC & Chem 7: 03/31/20 05:35 03/31/20 05:35 Labs: Abnormal Lab Results - Last 24 Hours (Table) 03/30/20 03/31/20 03/31/20 Range/Units 21:16 05:35 05:35 RBC 3.24 L (3.80-5.40) m/uL Hgb 10.3 L (11.4-16.0) gm/dL Hct 30.6 L (34.0-46.0) % Sodium 146 H (135-145) mmol/L Potassium 3.4 L 3.4 L (3.5-5.1) mmol/L Chloride 112 H (96-109) mmol/L BUN/Creatinine Ratio 23.33 H (12.00-20.00) Ratio Calcium 7.6 L (8.7-10.3) mg/dL Microbiology - Last 24 Hours (Table) 03/27/20 21:20 Blood Culture - Preliminary Blood No Growth after 72 hours Assessment and Plan Plan: Assessment: 1 Acute hypoxic respiratory failure secondary to suspected CoVID 19 pneumonitis. Initiated on Remdesivir 03/28/2020 2 Elevated inflammatory markers secondary to above 3 Febrile illness secondary to above 4 Multiple sclerosis 5 Fibromyalgia 6 Chronic pain 7 Current tobacco dependence 8 Marijuana use. 9 Hyperlipidemia. 10 Hypothyroidism 11 Seizure disorder Plan: Patient will receive her final dose of Remdesivir, vital signs stable, afebrile, obtain home oxygen assessment, increase activity, no acute events overnight, course of oral Decadron 6 mg for total of 10 days, she can continue on zinc, vitamin C supplements. She can see us in follow-up in 5-6 weeks I performed a history & physical examination of the patient and discussed their management with my nurse practitioner, Doris Jackson. I reviewed the nurse practitioner's note and agree with the documented findings and plan of care. Lung sounds are positive for diminished breath sounds. The findings and the imp ression was discussed with the patient. I attest to the documentation by the nurse practitioner. Time with Patient: Less than 30
[2020-03-31] MEDS: POTASSIUM CHLORIDE ER 20 MEQ TAB.ER PO SCH (15:32)
[2020-03-31] MEDS ORDERED: POTASSIUM BICARBONATE/CIT AC 20 MEQ TABLET.EFF PO ONE (16:59)
--- NOTE | 2020-03-31 17:09 | PN ---
PROGRESS NOTE DATE OF SERVICE: 03/31/2020 I am covering for Dr. Valverde. This 49-year-old woman who was admitted with bilateral pneumonia, severe, and severe COVID-19 infection is significantly short of breath. The patient was given remdesivir. The patient is on multiple other supports also. Inflammatory markers are still elevated, even though they show a downward trend. CTA showed evidence of significant pneumonia and no evidence of pulmonary embolism. The most recent chest x-ray, which was personally evaluated by me, showed extensive bilateral pneumonia, right more the left. The patient still continues to be hypoxic. Multiple consultants are following the patient closely. Past medical history reviewed. REVIEW OF SYSTEMS: CARDIOVASCULAR SYSTEM: No angina, palpitations. RESPIRATORY SYSTEM: As mentioned earlier. GI: As mentioned earlier. : No dysuria or retention. NERVOUS SYSTEM: No numbness, weakness. CURRENT MEDICATIONS: Current medications are reviewed and include Tylenol, Fioricet, [place], vitamin C, BuSpar, [place] with vitamin D, Lovenox, Pepcid, Dilaudid, Synthroid. PHYSICAL EXAMINATION: Patient is alert and oriented x3. Pulse 62, blood pressure 130/60, respiration 18, temperature 98.6, pulse ox 97% on 3 L. HEENT: Conjunctivae normal. Oral mucosa moist. NECK: No jugular venous distention. CARDIOVASCULAR SYSTEM: S1, S2 muffled. RESPIRATORY SYSTEM: Bilateral scattered rhonchi and crackles. ABDOMEN: Soft, non-tender. NERVOUS SYSTEM: No focal deficit. LABS: WBC 8.4, hemoglobin 10.3. Sodium 146, potassium 3.4. ASSESSMENT: 1. Bilateral pneumonia, interstitial pneumonia, severe, right more than the left, with acute COVID pneumonia with possible sepsis and acute hypoxic respiratory failure, present on admission. 2. On remdesivir. 3. Chronic obstructive pulmonary disease, acute exacerbation. 4. History of nicotine dependence. 5. Acute on chronic fibromyalgia. 6. Hyperlipidemia. 7. Hypertension. 8. Hypokalemia. 9. Remitting relapsing multiple sclerosis. 10.Depression not otherwise specified. 11.Hypokalemia. 12.Elevated LDH and CRP inflammatory markers of COVID-19. 13.Elevated procalcitonin. 14.Elevated D-dimer. 15.Increased white count. RECOMMENDATIONS AND DISCUSSION: I recommend to continue current medications, continue with the monitoring, symptomatic treatment. Continue with the bronchodilators. Continue the antibiotics. Continue with antiviral remdesivir. Otherwise, the physical findings may be shared because of the COVID-19. Other than that, continue the pain medication because of acute on chronic pain syndrome as well. I would also recommend infectious disease evaluation. Continue to follow with Pulmonary. Guarded prognosis. Further recommendations to follow. MMODL / IJN: [id number] /
[2020-03-31] MEDS: REMDESIVIR (EUA) 100 MG in SODIUM CHLORIDE 0.9% 250 ML IVPB SCH (17:53)
[2020-03-31] MEDS: SODIUM CHLORIDE 0.9% 1,000 ML IV SCH (21:23)
[2020-03-31] MEDS: MELATONIN 3 MG TABLET PO SCH (21:23)
[2020-03-31] MEDS: ATORVASTATIN 20 MG TAB PO SCH (21:23)
[2020-03-31] MEDS: QUEtiapine 25 MG TAB PO SCH (21:23)
[2020-03-31] MEDS ORDERED: LEVOFLOXACIN 750MG-D5W PMX 750 MG in DEXTROSE/WATER 1 150ML.BAG IVPB ONE (23:30)
[2020-04-01] MEDS: ALBUTEROL HFA INHALER INHALATION SCH ×6 (00:01→19:54)
[2020-04-01] MEDS: HYDROcodone/APAP 7.5-325MG 1 EACH TAB PO PRN ×3 (03:19→20:28)
[2020-04-01] MEDS: LEVOTHYROXINE 100 MCG TAB PO SCH (05:12)
[2020-04-01] MEDS: BUTALB/APAP/CAFF 50-325-40MG TAB PO PRN ×2 (05:12→17:24)
[2020-04-01 05:40] LABS: Basophils # (A) 0.1 k/uL (0-0.2); Basophils % (A) 1 %; Eosinophils # (A) 0.3 k/uL (0-0.7); Eosinophils % (A) 4 %; HCT 31.3 % (34.0-46.0); HGB 10.4 gm/dL (11.4-16.0); Lymphocytes # (A) 3.2 k/uL (1.0-4.8); Lymphocytes % (A) 38 %; MCH 31.5 pg (25.0-35.0); MCHC 33.3 g/dL (31.0-37.0); MCV 94.7 fL (80.0-100.0); Mean Platelet Volume 10.8; Monocytes # (A) 0.5 k/uL (0-1.0); Monocytes % (A) 5 %; Neutrophils # (A) 4.3 k/uL (1.3-7.7); Neutrophils % (A) 51 %; Platelet Count 307 k/uL (150-450); RDW 13.6 % (11.5-15.5); WBC 8.5 k/uL (3.8-10.6)
[2020-04-01] MEDS: CHOLECALCIFEROL 1,000 UNIT TAB PO SCH (08:35)
[2020-04-01] MEDS: ENOXAPARIN 40 MG/0.4 ML SYRINGE SQ SCH ×2 (08:35→20:22)
[2020-04-01] MEDS: GABAPENTIN 300 MG CAP PO SCH ×3 (08:35→20:23)
[2020-04-01] MEDS: DULoxetine HCL 30 MG CAPSULE.DR PO SCH ×2 (08:35→20:23)
[2020-04-01] MEDS: DOXYCYCLINE 100 MG CAP PO SCH ×3 (08:35→20:22)
[2020-04-01] MEDS: POTASSIUM CHLORIDE ER 20 MEQ TAB.ER PO SCH (08:36)
[2020-04-01] MEDS: DEXAMETHASONE SOD PHOSPHATE 10 MG/ML 1 ML VIAL IV SCH (08:36)
[2020-04-01] MEDS: CALCIUM CARB-VIT D 500MG-200UN 1 EACH TAB PO SCH ×2 (08:36→17:23)
[2020-04-01] MEDS: ASCORBIC ACID 500 MG TAB PO SCH (08:36)
[2020-04-01] MEDS: POTASSIUM BICARBONATE/CIT AC 20 MEQ TABLET.EFF PO SCH (08:37)
[2020-04-01] MEDS: ZINC SULFATE 220 MG CAP PO SCH (08:38)
[2020-04-01] MEDS: FAMOTIDINE 20 MG TAB PO SCH (08:38)
[2020-04-01] MEDS: busPIRone HCl 10 MG TAB PO SCH ×2 (08:38→20:22)
[2020-04-01] MEDS: FLUTICASONE 50MCG/SPRAY NASAL 16GM EA NOSTRIL SCH (08:39)
[2020-04-01 09:40] LABS: African American GFR (CKD) 119.6 (60.0-200.0); Anion Gap 5.8 mmol/L (4.00-12.00); BUN/Creat Ratio 22.86 Ratio (12.00-20.00); C Reactive Protein 13.2 mg/dL (0.0-0.8); Calcium 7.6 mg/dL (8.7-10.3); Carbon Dioxide 28.2 mmol/L (21.6-31.8); Non-African American GFR(CKD) 103.2 (60.0-200.0); Potassium 3.7 mmol/L (3.5-5.5)
--- NOTE | 2020-04-01 11:13 | CONS ---
CONSULTATION DATE OF CONSULTATION: 03/31/2020. REASON FOR HOSPITALIZATION: Covid pneumonia. HISTORY OF PRESENT ILLNESS: The patient is a 49-year-old female, past medical history significant for COPD, hypertension, MS, presenting to the ER at [facility] on March 27, 2020 for evaluation of cough and fever. The patient's symptoms started on Halloween night and the patient says she went to the [facility] where she was given a diagnosis of pneumonia, however the patient left. The patient mentioned she was given some antibiotic, however she is not sure about the name. She subsequently started having increasing shortness of breath, chest pressure and a cough with occasional sputum production. No hemoptysis. No pleuritic chest pain. No nausea, no vomiting. No abdominal pain or any diarrhea. With these symptoms the patient presented to the ER on 03/27/2020. On arrival to the ER, the patient did have fever of 103 degrees Fahrenheit. The patient did have hypoxemia with O2 sats of 92% on room air. On presentation hospital the patient also have a white count of 13,000 admission with evidence of left shift and no lymphopenia. Initial D-dimer was negative repeat was positive at 0.66. The patient also have elevated LDH and CRP. Procalcitonin was creatinine 0.22. Urine negative. Influenza PCR negative, PCR is currently pending. Patient did have a chest x-ray on admission with evidence of multifocal pneumonia confirmed on the CT angiogram, the patient has been treated with Omnicef. The patient completed her 5th dose today and also on zinc sulfate, Decadron and Lovenox. Infectious Disease was consulted for further management. The patient mentioning her breathing has been off up and down with some good days and bad days. Still complaining of shortness of breath on minimal exertion. She did have a cough with occasional sputum production. No nausea, vomiting. No abdominal pain. Did have some diarrhea. REVIEW OF SYSTEMS: Positive points have been mentioned in HPI. Rest of systems negative. PAST MEDICAL HISTORY: Past medical history of COPD, hypertension, hyperlipidemia, hypothyroidism, multiple scoliosis, T12 compression fracture, osteoarthritis, and depression. PAST SURGICAL HISTORY: Past surgical history thyroidectomy. SOCIAL HISTORY: Social history positive for smoking, rarely drinks alcohol. FAMILY HISTORY: father. ALLERGIES: PENICILLIN with a rash. No history of anaphylaxis. MEDICATIONS: Medications the patient is on Lipitor, BuSpar, Decadron, Cymbalta, Lovenox, Pepcid, Neurontin, Dilaudid, Synthroid, melatonin, , zinc sulfate. PHYSICAL EXAMINATION: Blood pressure 113/65 with a pulse of 53 temperature is 98.3, on 3 L nasal cannula. General description is a middle-aged female up in the bed in no distress . HEENT examination slight pallor no scleral icterus. Oral mucosa membrane is moist. Neck trachea central no thyromegaly. Lungs unlabored breathing, decreased intensity of breath sounds. No wheeze. Heart S1, S2. Regular rate and rhythm. ABDOMEN: Soft, no tenderness. No rigidity extremities are feet examination no rash or mass palpable. Neurologically the patient is awake, alert, oriented. Mood and affect normal. LABS: Hemoglobin is 10.1, white count of 8.4, admission white count 13.4, did have elevated CRP. LDH and procalcitonin pending. Urine was negative. Chest x-ray with multifocal infiltrate. DIAGNOSTIC IMPRESSION AND PLAN: 1. Patient admitted to the hospital with sepsis in this patient who did have a fever, elevated white count, and hypoxemia on presentation to the hospital with evidence of multifocal pneumonia, question of bacterial versus viral illness, Covid 19, though elevated procalcitonin point was a possible bacterial pathogen. 2. Patient with PENICILLIN allergy that will limit the number of antibiotics safe to use. She is also on Cymbalta and some other QT prolonging agent, can use of Zithromax and Levaquin. PLAN: 1. We will check urine for Legionella and check sputum for Gram stain and culture. 2. Repeat CRP and procalcitonin. 3. We will give her 1 dose of Levaquin and doxycycline. 4. Continue with Lovenox and dexamethasone. 5. We will follow on clinical condition and further adjust medication if needed. Thank you for this consultation follow this patient along with you. MMODL / IJN: [id number] /
--- NOTE | 2020-04-01 16:19 | PN ---
PROGRESS NOTE DATE OF SERVICE: 04/01/2010 I am covering for Dr. Valverde. This 49-year-old woman who was admitted with bilateral pneumonia, COVID-19 interstitial pneumonia, also had hypoxic respiratory failure and sepsis. The patient was started on remdesivir. The patient is on day 4 of remdesivir. Cultures are negative so far. Inflammatory markers were showing improvement initially but subsequently worsened a little bit. Currently they are rather stable. LDH is 265. CRP is still elevated at 13.2. The patient is still hypoxic. Sodium 141, potassium 3.7. Patient is being closely monitored. Past medical history reviewed. REVIEW OF SYSTEMS: CARDIOVASCULAR SYSTEM: No angina, palpitations. RESPIRATORY SYSTEM: As mentioned earlier. GI: As mentioned earlier. : No dysuria or retention. NERVOUS SYSTEM: No numbness, weakness. CURRENT MEDICATIONS: Reviewed. They include Tylenol, Fioricet, [place], [place], vitamin C, Lipitor, Cepacol, BuSpar, [place] with vitamin D, Decadron, Vibramycin, Cymbalta, Lovenox, Pepcid. PHYSICAL EXAMINATION: Patient is alert, oriented x3. Pulse 58, blood pressure 110/58, respiration 18, temperature 98.6, pulse ox 99% on 3 L. HEENT: Conjunctivae normal. NECK: No jugular venous distention. CARDIOVASCULAR SYSTEM: S1, S2 muffled. RESPIRATORY SYSTEM: Breath sounds diminished at the bases. Bilateral scattered rhonchi and crackles. ABDOMEN: Soft, non-tender. LEGS: No edema. No swelling. NERVOUS SYSTEM: No focal deficit. LABS: WBC 8.2, hemoglobin 10.4, sodium 140, potassium 3.7. ASSESSMENT: 1. Bilateral pneumonia, interstitial pneumonia, severe, right more than the left, with acute COVID-19 pneumonia with possible sepsis and acute hypoxic respiratory failure, present on admission. 2. On remdesivir. 3. Chronic obstructive pulmonary disease, acute exacerbation. 4. History of nicotine dependence. 5. Acute on chronic fibromyalgia. 6. Hyperlipidemia. 7. Hypertension. 8. Hypokalemia. 9. Remitting relapsing multiple sclerosis. 10.Depression not otherwise specified. 11.Elevated LDH and CRP, inflammatory markers of COVID-19. 12.Elevated procalcitonin. 13.Elevated D-dimer. 14.Increased white count. RECOMMENDATIONS AND DISCUSSION: I recommend to continue current medications, continue with the monitoring, symptomatic treatment. Continue with remdesivir. Monitor electrolytes closely. Ensure oxygenation. Monitor inflammatory markers. Guarded prognosis because of multiple complex medical conditions. Further recommendations to follow. MMODL / IJN: [id number] /
--- NOTE | 2020-04-01 16:25 | PN ---
PROGRESS NOTE DATE OF SERVICE: 04/01/2020 REASON FOR FOLLOWUP: Pneumonia. INTERVAL HISTORY: The patient is currently afebrile. The patient is breathing more comfortably. The patient denies having any chest pain. She did have a cough, not bringing up sputum. No vomiting. No abdominal pain, no diarrhea. PHYSICAL EXAMINATION: Blood pressure 110/58 with a pulse of 50, temperature 98.6, 99% on 2 L nasal cannula. General description is a middle-aged female up in the bed in no distress. RESPIRATORY SYSTEM: Unlabored breathing, decreased breath sounds at the base, no wheeze. HEART: S1, S2. Regular rate and rhythm. ABDOMEN: Soft. No tenderness. LABS: Hemoglobin is 10.5, white count of 8.5, BUN of 16, creatinine 0.7, procalcitonin 0.08. HGB is down to 13.2. DIAGNOSTIC IMPRESSION AND PLAN: Patient admitted to the hospital with shortness of breath, cough and fever has been diagnosed with pneumonia possible COVID, confirmation pending. However, she has clinically responded to Remdesivir, the patient completed her 5-day course along with Decadron and Lovenox to continue and monitor clinical course closely. MMODL / IJN: [id number] /
[2020-04-01] MEDS: REMDESIVIR (EUA) 100 MG in SODIUM CHLORIDE 0.9% 250 ML IVPB SCH (17:37)
--- NOTE | 2020-04-01 17:37 | P.PN ---
Subjective Progress Note Date: 04/01/20 Principal diagnosis: Suspected COVID 19 pneumonitis This is a pleasant 49-year-old female patient who follows with Dr. Desai as her primary care provider. She has a history of hypothyroidism, hyperlipidemia, fibromyalgia, multiple sclerosis, GERD, chronic pain, chronic tobacco d ependence, marijuana use. She presented here to the emergency room yesterday with complaints of increasing shortness of breath cough and congestion. She was seen at [facility] on 03/22/2020 for similar symptoms and diagnosed with pneumonia however she left AGAINST MEDICAL ADVICE. She was on antibiotics without much improvement. Presenting temperature 103.0. Chest x-ray does reveal scattered ill-defined opacities bilaterally with a mild interstitial pattern. She is seen in consultation on the regular medical floor. She is currently sitting up in bed. Awake and alert in no acute distress. Just a loose nonproductive cough. No fever chills or night sweats. White count 14.0. Hemoglobin 11.8. Lymphocytes 3.0. D-dimer 0.4. Pseudogout 0.43. Potassium 3.3. Creatinine 0.69. LDH 873. C-reactive protein 226. Pro-calcitonin 0.22. Influenza screen negative. CoVID 19 screen is pending. The patient is seen today 03/29/2020 in follow-up on the regular medical floor. She is awake and alert in no acute distress. She is still quite dyspneic with minimal exertion. Continues with a loose nonproductive cough. Sore throat. She is maintaining O2 saturations in the 90s on 2 L/m per nasal cannula. Afebrile. Hemodynamically stable. D-dimer 0.66. LDH 379. C-reactive protein 29.7. Covid 19 screen is still pending. This is day 2 of Remdesivir. The patient is seen today 03/30/2020 follow-up on the regular medical floor. She is awake and alert in no acute distress. O2 saturations in the low 90s on 3 L/m per nasal cannula. She continues with a loose nonproductive cough. Temp 99.4. Hemodynamically stable. White count 10.7. Hemoglobin 10.1. Sodium 144. Potassium 3.1. Creatinine 0.6. This is day 3 of Remdesivir. Continued on Decadron, Lovenox, vitamin C, vitamin D, melatonin, zinc. Chest x-ray continues to show diffuse mixed infiltrates bilaterally. On 03/31/2020 patient seen in follow-up on the general medical surgical floor, she remains on 3 L of oxygen a pulse ox of 97-98%, monocytes have been stable, she's been afebrile, does get short of breath with activity, seems to be breathing comfortably at rest. Covid 19 PCR is still pending at this time, patient was started on Remdesivir, day #5 On 04/01/2020 patient seen in follow-up on [facility], she is sitting up comfortably in bed, appears to be in no acute distress, she remains on 3 L of oxygen with a pulse ox of 99%, no worsening dyspnea, breathing is comfortable, her Covid 19 PCR came back negative, influenza A and B were negative as well, vital signs are stable, she's been afebrile. She is supposed to get her fourth dose of Remdesivir. No chest discomfort, no cough, last chest x-ray shows very hilar and basilar infiltrates improved since the prior study. Objective - Vital Signs Vital signs: Vital Signs Temp 98.6 F 04/01/20 12:01 Pulse 58 L 04/01/20 12:01 Resp 19 04/01/20 12:01 BP 110/58 04/01/20 12:01 Pulse Ox 99 04/01/20 12:01 Intake & Output 03/31/20 04/01/20 04/01/20 18:59 06:59 18:59 Intake Total 600 540 Balance 600 540 Intake: Intake, IV Titration 150 Amount Levofloxacin 750Mg-D5w 150 Pmx 750 mg In Dextrose/ Water 1 150ml.bag @ 100 mls/hr IVPB ONCE ONE Rx#: [id number] Oral 450 540 Other: Voiding Method Toilet Toilet # Voids 1 2 # Bowel Movements 0 - Exam GENERAL EXAM: Alert, very pleasant, 49-year-old white female, 3 L of oxygen with pulse ox of 97%, sitting up on the edge of the bed, in no acute distress, comfortable in no apparent distress. HEAD: Normocephalic/atraumatic. EYES: Normal reaction of pupils, equal size. Conjunctiva pink, sclera white. NOSE: Clear with pink turbinates. THROAT: No erythema or exudates. NECK: No masses, no JVD, no thyroid enlargement, no adenopathy. CHEST: No chest wall deformity. Symmetrical expansion. LUNGS: Equal air entry with no crackles, wheeze, rhonchi or dullness. CVS: Regular rate and rhythm, normal S1 and S2, no gallops, no murmurs, no rubs ABDOMEN: Soft, nontender. No hepatosplenomegaly, normal bowel sounds, no guarding or rigidity. EXTREMITIES: No clubbing, no edema, no cyanosis, 2+ pulses and upper and lower extremities. MUSCULOSKELETAL: Muscle strength and tone normal. SPINE: No scoliosis or deformity SKIN: No rashes CENTRAL NERVOUS SYSTEM: Alert and oriented -3. No focal deficits, tone is normal in all 4 extremities. PSYCHIATRIC: Alert and oriented -3. Appropriate affect. Intact judgment and insight. - Labs CBC & Chem 7: 04/01/20 05:10 04/01/20 05:10 Labs: Abnormal Lab Results - Last 24 Hours (Table) 04/01/20 04/01/20 Range/Units 05:10 05:10 RBC 3.30 L (3.80-5.40) m/uL Hgb 10.4 L (11.4-16.0) gm/dL Hct 31.3 L (34.0-46.0) % Chloride 111 H (96-109) mmol/L BUN/Creatinine Ratio 22.86 H (12.00-20.00) Ratio Calcium 7.6 L (8.7-10.3) mg/dL Lactate Dehydrogenase 265 H (120-246) U/L C-Reactive Protein 13.2 H (0.0-0.8) mg/dL Microbiology - Last 24 Hours (Table) 03/27/20 21:20 Blood Culture - Preliminary Blood No Growth after 96 hours Assessment and Plan Plan: Assessment: 1 Acute hypoxic respiratory failure that was initially suspected to be related to CoVID 19 pneumonitis. Initiated on Remdesivir 03/28/2020. Covid 19 PCR came back negative today on 04/01/2020 2 Elevated inflammatory markers secondary to above 3 Febrile illness secondary to above 4 Multiple sclerosis 5 Fibromyalgia 6 Chronic pain 7 Current tobacco dependence 8 Marijuana use. 9 Hyperlipidemia. 10 Hypothyroidism 11 Seizure disorder Plan: Covid 19 PCR came back negative, we'll stop the Remdesivir, if not already completed, continue the IV Decadron, nebulized bronchodilators, antibiotics per ID service recommendations, vital signs are stable, obtain home oxygen assessment, ambulate the patient, we'll continue to monitor, from pulmonary perspective patient can be considered for discharge home in the next 24 hours if remains stable and continues to improve I performed a history & physical examination of the patient and discussed their management with my nurse practitioner, Doris Jackson. I reviewed the nurse practitioner's note and agree with the documented findings and plan of care. Lung sounds are positive for diminished breath sounds. The findings and the impression was discussed with the patient. I attest to the documentation by the nurse practitioner. Time with Patient: Less than 30
[2020-04-01] MEDS: ATORVASTATIN 20 MG TAB PO SCH (20:22)
[2020-04-01] MEDS: MELATONIN 3 MG TABLET PO SCH (20:23)
[2020-04-01] MEDS: QUEtiapine 25 MG TAB PO SCH (20:23)
[2020-04-01 23:11] VITALS: RESP 18
[2020-04-02] MEDS: ALBUTEROL HFA INHALER INHALATION SCH ×4 (01:08→11:34)
[2020-04-02] MEDS: HYDROcodone/APAP 7.5-325MG 1 EACH TAB PO PRN (05:12)
[2020-04-02] MEDS: LEVOTHYROXINE 100 MCG TAB PO SCH (05:13)
[2020-04-02 07:10] VITALS: BP 129/73; TEMP 98
[2020-04-02] MEDS: busPIRone HCl 10 MG TAB PO SCH (08:21)
[2020-04-02] MEDS: FAMOTIDINE 20 MG TAB PO SCH (08:21)
[2020-04-02] MEDS: POTASSIUM CHLORIDE ER 20 MEQ TAB.ER PO SCH (08:22)
[2020-04-02] MEDS: CHOLECALCIFEROL 1,000 UNIT TAB PO SCH (08:22)
[2020-04-02] MEDS: DULoxetine HCL 30 MG CAPSULE.DR PO SCH (08:22)
[2020-04-02] MEDS: GABAPENTIN 300 MG CAP PO SCH (08:22)
[2020-04-02] MEDS: CALCIUM CARB-VIT D 500MG-200UN 1 EACH TAB PO SCH (08:22)
[2020-04-02] MEDS: ASCORBIC ACID 500 MG TAB PO SCH (08:22)
[2020-04-02] MEDS: DOXYCYCLINE 100 MG CAP PO SCH (08:23)
[2020-04-02] MEDS: DEXAMETHASONE SOD PHOSPHATE 10 MG/ML 1 ML VIAL IV SCH (08:23)
[2020-04-02] MEDS: ENOXAPARIN 40 MG/0.4 ML SYRINGE SQ SCH (08:23)
[2020-04-02] MEDS: POTASSIUM BICARBONATE/CIT AC 20 MEQ TABLET.EFF PO SCH (08:25)
[2020-04-02] MEDS: ZINC SULFATE 220 MG CAP PO SCH (08:25)
[2020-04-02] MEDS: FLUTICASONE 50MCG/SPRAY NASAL 16GM EA NOSTRIL SCH (08:54)
[2020-04-02 09:36] LABS: C Reactive Protein 9.8 mg/dL (0.0-0.8)
[2020-04-02 10:20] VITALS: PULSE 68
[2020-04-02] MEDS: BUTALB/APAP/CAFF 50-325-40MG TAB PO PRN (11:52)
--- NOTE | 2020-04-02 12:56 | PN ---
PROGRESS NOTE DATE OF SERVICE: 04/02/2020 REASON FOR FOLLOWUP: Pneumonia. INTERVAL HISTORY: Patient was seen on rounds this morning. The patient overall is feeling better. She is breathing comfortably, currently on room air. The patient denies having chest pain. Cough has decreased in intensity. No nausea, no vomiting. No diarrhea. PHYSICAL EXAMINATION: Blood pressure 129/63, pulse of 52, temperature 98. She is 95% on room air. General description is a middle-aged female, up in the in no distress. RESPIRATORY SYSTEM: Unlabored breathing. LABS: CRP is down to 9.8, white count was normal. DIAGNOSTIC IMPRESSION AND PLAN: Patient admitted to the hospital with pneumonia, concern possible for COVID-19. She has completed her prednisone therapy subsequently, shaikh PCR came back negative. The patient is on oral doxycycline 100 mg twice a day to continue for another 5-7 days and close outpatient followup. MMODL / IJN: [id number] /
--- NOTE | 2020-04-02 14:25 | P.PN ---
Subjective Progress Note Date: 04/02/20 Principal diagnosis: Suspected COVID 19 pneumonitis This is a pleasant 49-year-old female patient who follows with Dr. Desai as her primary care provider. She has a history of hypothyroidism, hyperlipidemia, fibromyalgia, multiple sclerosis, GERD, chronic pain, chronic tobacco d ependence, marijuana use. She presented here to the emergency room yesterday with complaints of increasing shortness of breath cough and congestion. She was seen at [facility] on 03/22/2020 for similar symptoms and diagnosed with pneumonia however she left AGAINST MEDICAL ADVICE. She was on antibiotics without much improvement. Presenting temperature 103.0. Chest x-ray does reveal scattered ill-defined opacities bilaterally with a mild interstitial pattern. She is seen in consultation on the regular medical floor. She is currently sitting up in bed. Awake and alert in no acute distress. Just a loose nonproductive cough. No fever chills or night sweats. White count 14.0. Hemoglobin 11.8. Lymphocytes 3.0. D-dimer 0.4. Pseudogout 0.43. Potassium 3.3. Creatinine 0.69. LDH 873. C-reactive protein 226. Pro-calcitonin 0.22. Influenza screen negative. CoVID 19 screen is pending. The patient is seen today 03/29/2020 in follow-up on the regular medical floor. She is awake and alert in no acute distress. She is still quite dyspneic with minimal exertion. Continues with a loose nonproductive cough. Sore throat. She is maintaining O2 saturations in the 90s on 2 L/m per nasal cannula. Afebrile. Hemodynamically stable. D-dimer 0.66. LDH 379. C-reactive protein 29.7. Covid 19 screen is still pending. This is day 2 of Remdesivir. The patient is seen today 03/30/2020 follow-up on the regular medical floor. She is awake and alert in no acute distress. O2 saturations in the low 90s on 3 L/m per nasal cannula. She continues with a loose nonproductive cough. Temp 99.4. Hemodynamically stable. White count 10.7. Hemoglobin 10.1. Sodium 144. Potassium 3.1. Creatinine 0.6. This is day 3 of Remdesivir. Continued on Decadron, Lovenox, vitamin C, vitamin D, melatonin, zinc. Chest x-ray continues to show diffuse mixed infiltrates bilaterally. On 03/31/2020 patient seen in follow-up on the general medical surgical floor, she remains on 3 L of oxygen a pulse ox of 97-98%, monocytes have been stable, she's been afebrile, does get short of breath with activity, seems to be breathing comfortably at rest. Covid 19 PCR is still pending at this time, patient was started on Remdesivir, day #5 On 04/01/2020 patient seen in follow-up on [facility] medical surgical floor, she is sitting up comfortably in bed, appears to be in no acute distress, she remains on 3 L of oxygen with a pulse ox of 99%, no worsening dyspnea, breathing is comfortable, her Covid 19 PCR came back negative, influenza A and B were negative as well, vital signs are stable, she's been afebrile. She is supposed to get her fourth dose of Remdesivir. No chest discomfort, no cough, last chest x-ray shows very hilar and basilar infiltrates improved since the prior study. On 04/02/2020 patient seen in follow-up on medical surgical floor. She continues to improve, she is satting 95% on room air, home oxygen was completed, and the patient was satting 98% on room air at rest, and 93% with exercise on room air, breathing easier, no chest pain, no significant cough or congestion, vital signs have been stable overnight. Legionella urine antigen is negative. Patient has had no fever or chills, remains on doxycycline for antibiotic coverage, ID service is following, levofloxacin has been discontinued. Objective - Vital Signs Vital signs: Vital Signs Temp 98.0 F 04/02/20 05:00 Pulse 68 04/02/20 09:00 Resp 18 04/02/20 05:00 BP 129/73 04/02/20 05:00 Pulse Ox 98 04/02/20 09:00 Intake & Output 04/01/20 04/02/20 04/02/20 18:59 06:59 18:59 Intake Total 540 850 240 Balance 540 850 240 Intake: Oral 540 850 240 Other: Voiding Method Toilet Toilet # Voids 2 2 # Bowel Movements 0 - Exam GENERAL EXAM: Alert, very pleasant, 49-year-old white female, on room air, with a pulse ox of 93-98% sitting up on the edge of the bed, in no acute distress, comfortable in no apparent distress. HEAD: Normocephalic/atraumatic. EYES: Normal reaction of pupils, equal size. Conjunctiva pink, sclera white. NOSE: Clear with pink turbinates. THROAT: No erythema or exudates. NECK: No masses, no JVD, no thyroid enlargement, no adenopathy. CHEST: No chest wall deformity. Symmetrical expansion. LUNGS: Equal air entry with no crackles, wheeze, rhonchi or dullness. CVS: Regular rate and rhythm, normal S1 and S2, no gallops, no murmurs, no rubs ABDOMEN: Soft, nontender. No hepatosplenomegaly, normal bowel sounds, no gua rding or rigidity. EXTREMITIES: No clubbing, no edema, no cyanosis, 2+ pulses and upper and lower extremities. MUSCULOSKELETAL: Muscle strength and tone normal. SPINE: No scoliosis or deformity SKIN: No rashes CENTRAL NERVOUS SYSTEM: Alert and oriented -3. No focal deficits, tone is normal in all 4 extremities. PSYCHIATRIC: Alert and oriented -3. Appropriate affect. Intact judgment and insight. - Labs CBC & Chem 7: 04/01/20 05:10 04/01/20 05:10 Labs: Abnormal Lab Results - Last 24 Hours (Table) 04/02/20 Range/Units 05:09 Lactate Dehydrogenase 313 H (120-246) U/L C-Reactive Protein 9.8 H (0.0-0.8) mg/dL Microbiology - Last 24 Hours (Table) 03/27/20 21:20 Blood Culture - Preliminary Blood No Growth after 120 hours Assessment and Plan Plan: Assessment: 1 Acute hypoxic respiratory failure that was initially suspected to be related to CoVID 19 pneumonitis. Initiated on Remdesivir 03/28/2020. Covid 19 PCR came back negative today on 04/01/2020 2 Elevated inflammatory markers secondary to above 3 Febrile illness secondary to above 4 Multiple sclerosis 5 Fibromyalgia 6 Chronic pain 7 Current tobacco dependence 8 Marijuana use. 9 Hyperlipidemia. 10 Hypothyroidism 11 Seizure disorder Plan: Patient continues to improve, she is not on room air, did not qualify for home oxygen, breathing has significantly improved, no fever or chills, Legionella urine antigen came back negative, COVID 19 PCR was negative, vital signs have been stable, tolerating ambulation, she is going home today, she will need outpatient follow-up Dr. Restrepo in the office in one week I performed a history & physical examination of the patient and discussed their management with my nurse practitioner, Doris Jackson. I reviewed the nurse practitioner's note and agree with the documented findings and plan of care. Lung sounds are positive for diminished breath sounds. The findings and the impression was discussed with the patient. I attest to the documentation by the nurse practitioner. Time with Patient: Less than 30
--- NOTE | 2020-04-02 15:32 | CDI ---
Documentation Clarification Form Date: 04/02/2020 03:09:19 PM From: Tania Esteves RN CCDS Admit Date: 03/27/2020 10:13:00 PM Patient Name: Barbra Holly Visit Number: [id number] Discharge Date: 04/02/2020 02:59:00 PM ATTENTION: The Clinical Documentation Specialists (CDI) and [facility] Coding Staff appreciate your assistance in clarifying documentation. Please respond to the clarification below the line at the bottom and electronically sign. The CDI & [facility] Coding staff will review the response and follow-up if needed. Please note: Queries are made part of the Legal Health Record. If you have any questions, please contact the author of this message via ITS. Dr. Letitia Bateman The COVID-19 test obtained on 03/27 was reported as Negative on 04/01. Acute COVID 19 Pneumonia is documented in Internal Medicine Progress Notes 03/29 through 04/01 Patient history/risk factors: 49-year-old female presents to the ED for progressive shortness of breath, wheezing, fever and cough. Decreased appetite and loss of smell. Clinical Indicators: Medical History: Current smoker; HTN; MS and COPD 03/27 CXR: Multifactorial Pneumonia 03/27 Vital signs on admission: B/P 134/64; HR 87; Temp 103.0 F Oral; RR 24; SpO2 92% 3L nasal canula 03/27 Labs: Wbc 13.0; Neutrophils 11.2; D dimer 0.43; LDH 873; CRP 226.4; Procalcitonin 0.22; 03/27 Influenza Panel: Negative Treatment: 03/27 Rocephin Iv daily; 03/28 Remdisivir Iv; 03/28 Zinc Sulfate po daily 03/29 Decadron Iv daily; 04/01 Doxycycline po daily; In order to capture the severity of condition, please clarify the COVID-19 status: COVID-19 ruled out False negative, treating for COVID-19 based on these clinical indicators: Other, please specify: (Last Form Revision: July 2019) False negative, treating for COVID-19 based on these clinical indicators. SEE CHART MTDD
--- NOTE | 2020-04-03 03:52 | DS ---
DISCHARGE SUMMARY FINAL DIAGNOSES: 1. Bilateral pneumonia, interstitial pneumonia, severe, right more than left with possible acute COVID-19 pneumonia possible sepsis, acute hypoxic respiratory failure present on admission. 2. COVID-19 test negative, possibly false negative. 3. Status post remdesivir. 4. Chronic obstructive pulmonary disease acute exacerbation. 5. History of nicotine dependence. 6. History of acute on chronic fibromyalgia. 7. Hyperlipidemia. 8. Hypertension. 9. Hypokalemia. 10.Remitting relapsing multiple sclerosis history. 11.Depression, not otherwise specified. 12.Elevated LDH, CRP, inflammatory markers of COVID-19. 13.Elevated procalcitonin. 14.Elevated D-dimer. 15.Increased WBC. DISCHARGE DISPOSITION: The patient will be discharged in stable condition with guarded prognosis. Total time taken 35 minutes. Discharge cleared by Dr. Leach and as well as Dr. Rios. HISTORY OF PRESENT ILLNESS: This 49-year-old woman with a past medical history of multiple medical problems admitted with bilateral pneumonia. The patient treated with broad IV antibiotics. Remdesivir was also given because of the high clinical suspicion, but however the test came back as negative. The patient has elevated inflammatory markers. The patient improved significantly. On exam, vitals are stable. CARDIOVASCULAR: S1, S2 muffled. ABDOMEN: Soft. NERVOUS SYSTEM: No focal deficits. DISCHARGE ADVICE: 1. Diet is cardiac. 2. Activity limited until followup. 3. Follow up with Dr. Hyde in 2-3 days. 4. Follow up with Dr. Leach as advised. 5. Follow up with Dr. Rios as needed. Medications are: 1. BuSpar 10 mg p.o. b.i.d. 2. Cymbalta 30 mg p.o. b.i.d. 3. Butalbital 1 q.8 p.r.n. 4. Flonase 1 spray daily. 5. Gabapentin 600 mg t.i.d. 6. Motrin 800 mg t.i.d. p.r.n. 7. [place] 5 mg b.i.d. p.r.n. 8. Prilosec 20 mg b.i.d. 9. Seroquel 75 mg at bedtime. 10.Synthroid 150 mcg p.o. daily. 11.Tizanidine 2 mg p.o. b.i.d. p.r.n. 12.Albuterol 1 to 2 puffs q.6 p.r.n. 13.Albuterol nebulized 2.5 mg q.i.d. 14.Zocor 40 mg at bedtime. 15.Dexamethasone 6 mg p.o. daily for 5 days. 16.Orazinc 220 mg daily. 17.Os-Felipe with vitamin D one p.o. b.i.d. 18.Pepcid 40 mg p.o. daily. 19.Doxycycline 100 mg p.o. b.i.d. for 5 days. 20.Vitamin C 500 mg p.o. daily. Once again, the patient will be discharged in a stable condition with a guarded prognosis. MMJULIOCESARL / NAVARRON: [id number] /
== END 2020-04-02 14:59 | disposition home or self-care (01) | DRG 871 ==
LOC: EC 20:51 → 4SSUR 22:13 → 6NMEDSUR 03-28 06:24
PROVIDERS: ADMIT Hospitalist; ATTEND Hospitalist
DX: A41.89 Other specified sepsis (principal); U07.1 COVID-19; J12.89 Other viral pneumonia; J96.01 Acute respiratory failure with hypoxia; S22.089A Unspecified fracture of T11-T12 vertebra, initial encounter for closed fracture; J84.9 Interstitial pulmonary disease, unspecified; J44.1 Chronic obstructive pulmonary disease with (acute) exacerbation; J44.0 Chronic obstructive pulmonary disease with (acute) lower respiratory infection; F17.210 Nicotine dependence, cigarettes, uncomplicated; F32.9 Major depressive disorder, single episode, unspecified; G35 Multiple sclerosis; G40.909 Epilepsy, unspecified, not intractable, without status epilepticus; G89.29 Other chronic pain; I10 Essential (primary) hypertension; E78.5 Hyperlipidemia, unspecified; E87.6 Hypokalemia; E89.0 Postprocedural hypothyroidism; M11.20 Other chondrocalcinosis, unspecified site; M41.9 Scoliosis, unspecified; M79.7 Fibromyalgia; Z87.442 Personal history of urinary calculi; Z87.440 Personal history of urinary (tract) infections; Z87.01 Personal history of pneumonia (recurrent); Z90.710 Acquired absence of both cervix and uterus; Z98.51 Tubal ligation status; E66.9 Obesity, unspecified; Z68.27 Body mass index [BMI] 27.0-27.9, adult; Z82.0 Family history of epilepsy and other diseases of the nervous system; Z82.49 Family history of ischemic heart disease and other diseases of the circulatory system; Z83.3 Family history of diabetes mellitus; Z82.61 Family history of arthritis; R79.1 Abnormal coagulation profile; Z79.890 Hormone replacement therapy; Z79.899 Other long term (current) drug therapy; Z88.0 Allergy status to penicillin; M51.36 Other intervertebral disc degeneration, lumbar region; R29.6 Repeated falls; Z91.81 History of falling; Z83.79 Family history of other diseases of the digestive system; G43.909 Migraine, unspecified, not intractable, without status migrainosus; S09.90XS Unspecified injury of head, sequela; V89.2XXS Person injured in unspecified motor-vehicle accident, traffic, sequela
CPT/HCPCS: 36415; 71045; 71275; 80048; 80053; 81003; 82728; 83605; 83615; 83735; 84132; 84145; 85025; 85379; 85610; 85730; 86140; 87040; 87449; 87502; 93005; 94640; 96365; 96366; 96368; 99285

== ENCOUNTER 2021-04-13 11:04 | Day surgery (SDC) | payer MEDICARE ==
[2021-04-09 13:23] VITALS: BMI 27.1
[~2021-04-13 11:04] MED LIST: DEXAMETHASONE SOD PHOSPHATE 4 MG/ML 1 ML VIAL IV ONE; LACTATED RINGERS 1,000 ML IV SCH; MIDAZOLAM 2 MG/2 ML VIAL IV PRN; ONDANSETRON 4 MG/2 ML VIAL IVP ONE
[2021-04-13 12:46] LABS: Glucose,Whole Blood 91 mg/dL (75-99)
[2021-04-13] MEDS ORDERED: PROPOFOL 10 MG/ML 20 ML VIAL IV ONE (13:27)
[2021-04-13] MEDS ORDERED: DEXAMETHASONE SOD PHOSPHATE 4 MG/ML 1 ML VIAL ONE (13:27)
[2021-04-13] MEDS ORDERED: ROPIVACAINE 5 MG/ML 30 ML VIAL ONE (13:27)
[2021-04-13] MEDS ORDERED: ceFAZolin 1,000 MG VIAL ONE (13:27)
[2021-04-13] MEDS ORDERED: MIDAZOLAM 2 MG/2 ML VIAL ONE (13:27)
[2021-04-13] MEDS ORDERED: SODIUM CHLORIDE 0.9% 100 ML BAG ONE (13:27)
[2021-04-13] MEDS ORDERED: fentaNYL (PF) 50 MCG/ML 2 ML AMP ONE (13:27)
[2021-04-13] MEDS ORDERED: HYDROmorphone (PF) 1 MG/ML ONE (13:27)
[2021-04-13] MEDS ORDERED: LIDOCAINE 1% INJ 10MG/ML (20 ML MDV) ONE (13:27)
[2021-04-13 15:17] VITALS: TEMP 97.1
[2021-04-13] MEDS: HYDROmorphone 0.5 MG/0.5 ML SYRINGE IVP PRN ×2 (15:22→15:30)
--- NOTE | 2021-04-13 15:32 | P.OP ---
Date of Procedure: 04/13/21 Preoperative Diagnosis: Right extra-articular distal radius fracture, nascent malunion Postoperative Diagnosis: Same Procedure(s) Performed: Right extra-articular distal radius fracture open reduction internal fixation Implants: Arthrex narrow 3 hole volar locking plate Anesthesia: ARABELLA Surgeon: Chel Blum Ore Feeder #1: Latoya Velasco Estimated Blood Loss (ml): 5 Condition: stable Disposition: PACU Indications for Procedure: Patient is today 50-year-old female who fell on outstretched hand several weeks ago. She initially tried a period of nonoperative treatment with a cast. However the distal radius fracture continued to displace. We discussed tr eatment options with the patient and she elects to proceed with surgical intervention. Description of Procedure: The patient, operative extremity, and procedure were identified in the preoperative holding area. After informed consent was obtained the patient was brought back to the operating room. The right upper extremity was then prepped and draped in normal sterile fashion with a tourniquet along the patient's brachium. Formal timeout was performed. Tourniquet was inflated. Longitudinal incision was made along the volar aspect of the patient's forearm. FCR tendon was identified and shifted ulnarly. Floor of the FCR tendon sub- sheath was then incised flexor tendons were scooped aside. Pronator quadratus was incised to access the fracture site. Callus formation was debrided and the fracture site was freed up as much as possible. Shaft was pronated out of the wound and dorsal callus was also cleaned off. Brachioradialis release was performed. Attention was then turned to the distal aspect of the plate. A narrow plate was deemed to be appropriate. Plate was affixed distally to the distal fragment in situ. A temporary nonlocking screw was used to suck the plate down to the bone. The remaining screws holes were then filled with the appropriate length smooth locking pegs. Once the plate was attached distally reduction maneuver was performed and a nonlocking screw was inserted into the oblong hole of the shaft. This corrected the dorsal angulation of the articular fragment. The shaft was fixated with a combination of locking and nonlocking screws. Reduction and hardware placement were confirmed on fluoroscopy. DRUJ was then tested and found to be stable. Tourniquet was then let down and hemostasis was achieved and a layered closure with 4-0 Monocryl was performed. Wound was dressed with Adaptic 4 x 4 cast padding and a volar splint and an Guillermo wrap. Patient was aroused by the anesthesia team brought back to PACU. She will have follow-up with us in the office in 2 weeks
[2021-04-13] MEDS ORDERED: diphenhydrAMINE 50 MG/ML 1 ML VIAL ONE (15:42)
[2021-04-13] MEDS ORDERED: diphenhydrAMINE 50 MG/ML 1 ML VIAL IVP ONE (15:43)
[2021-04-13] MEDS ORDERED: MIDAZOLAM 2 MG/2 ML VIAL IVP ONE (16:24)
[2021-04-13] MEDS ORDERED: LABETALOL SYRINGE 5 MG/ML IVP ONE (16:36)
[2021-04-13 18:26] VITALS: BP 158/85; PULSE 74; RESP 18
--- NOTE | 2021-04-13 18:53 | P.ANPRN ---
Procedure Note - Anesthesia - Nerve Block Performed Right Supraclavicular Single Time Out Performed: Yes Date of Procedure: 04/13/21 Procedure Start Time: 15:53 Procedure Stop Time: 16:02 Location of Patient: Phase I Indication: Acute Post-Operative Pain Sedation Type: Awake Preparation: Sterile Prep Position: Supine Needle Types: Pajunk Needle Gauge: 21 Ultrasound used to visualize needle placement: Yes Ultrasound used to observe medication spread: Yes Injectate: 0.5% Ropivacaine (see comment for volume) (20 ml) Blood Aspirated: No Pain Paresthesia on Injection Noted: No Resistance on Injection: Normal Image Stored and Saved: Yes Events: Uneventful and Well Tolerated
== END 2021-04-13 19:15 | disposition home or self-care (01) ==
LOC: OR 11:04
PROVIDERS: ATTEND Orthopaedic Surgery Hand Surgery
DX: S52.551A Other extraarticular fracture of lower end of right radius, initial encounter for closed fracture (principal); W19.XXXA Unspecified fall, initial encounter; Y92.009 Unspecified place in unspecified non-institutional (private) residence as the place of occurrence of the external cause; I10 Essential (primary) hypertension; E78.5 Hyperlipidemia, unspecified; Z97.3 Presence of spectacles and contact lenses; E03.9 Hypothyroidism, unspecified; H91.90 Unspecified hearing loss, unspecified ear; F32.A Depression, unspecified; F17.200 Nicotine dependence, unspecified, uncomplicated; J44.9 Chronic obstructive pulmonary disease, unspecified; E28.2 Polycystic ovarian syndrome; G51.0 Bell's palsy; R20.2 Paresthesia of skin; R26.81 Unsteadiness on feet; Z85.41 Personal history of malignant neoplasm of cervix uteri; G35 Multiple sclerosis; M79.7 Fibromyalgia; M19.90 Unspecified osteoarthritis, unspecified site; Z90.710 Acquired absence of both cervix and uterus; Z98.51 Tubal ligation status; E89.0 Postprocedural hypothyroidism; Z98.890 Other specified postprocedural states; Z79.1 Long term (current) use of non-steroidal anti-inflammatories (NSAID); Z79.890 Hormone replacement therapy; Z79.891 Long term (current) use of opiate analgesic; Z79.899 Other long term (current) drug therapy; Z88.0 Allergy status to penicillin
CPT/HCPCS: 64415; 76942; 25607; C1713; J2250; J1200; J1100; J2405; J0690; J2001; J3010; J1170 ×2; J2795; J2704